=== PATIENT | male | born 1940 | race Caucasian/White ===

== ENCOUNTER → 2017-07-16 | Outpatient (CLI) | payer MEDICARE, OTHER | END | disposition home or self-care (01) | LOC: RADUSWWP 12:20 | PROVIDERS: ATTEND Family Medicine | DX: E11.40 Type 2 diabetes mellitus with diabetic neuropathy, unspecified (principal) | CPT/HCPCS: 93923 ==

== ENCOUNTER → 2019-03-19 | Day surgery (SDC) | payer MEDICARE, OTHER ==
[2019-03-17 15:12] VITALS: BMI 25.0
--- NOTE | 2019-03-18 13:44 | HP ---
HISTORY AND PHYSICAL DATE OF SURGERY: Surgery is scheduled for 03/19/2019. Harsh Flores is a 78-year-old patient seen with symptomatic left middle finger trigger finger. We discussed options with him. He elected to proceed with release A1 braulio left middle finger. Consent was obtained. PAST MEDICAL HISTORY: Asthma, COPD, diabetes non-insulin dependent, hypertension. PAST SURGICAL HISTORY: Left total hip arthroplasty. DAILY MEDICATIONS: 1. Allopurinol. 2. Amoxicillin. SOCIAL HISTORY: He denies current tobacco use. PHYSICAL EXAMINATION: Physical evaluation left hand: He has tenderness A1 braulio area. There is a nodule at the A1 braulio area. There is triggering and catching of the A1 braulio area left middle finger. His distal neurovascular exam is intact. There is a good perfusion sensation distally Left hand radiographs revealed some osteoarthritic changes. IMPRESSION: 1. Left middle finger trigger finger. 2. Hypertension. 3. Pls-puvzngn-odadcdohk diabetes. PLAN: Release A1 braulio, left middle finger. MMODL / IJN: [id number] /
[~2019-03-19] MED LIST: BUPIVACAINE (PF) 0.25% 30 ML VIAL SQ ONE; DEXAMETHASONE SOD PHOSPHATE 10 MG/ML 1 ML VIAL IV ONE; HYDROmorphone 0.5 MG/0.5 ML SYRINGE IVP PRN; KETAMINE 10 MG/ML 20 ML VIAL ONE; LACTATED RINGERS 1,000 ML IV SCH; LIDOCAINE 1% 20 ML VIAL (10MG/ML) FOR IV START INTRADERMA PRN; MIDAZOLAM 2 MG/2 ML VIAL IV PRN; ONDANSETRON 4 MG/2 ML VIAL IVP ONE; PROPOFOL 10 MG/ML 20 ML VIAL IV ONE; SCOPOLAMINE 1.5MG/72HR PATCH TRANSDERM ONE
[2019-03-19 10:23] VITALS: RESP 16; TEMP 97.6
[2019-03-19 10:47] LABS: Glucose,Whole Blood 135 mg/dL (75-99)
--- NOTE | 2019-03-19 12:09 | P.OP ---
Date of Procedure: 03/19/19 Preoperative Diagnosis: Left middle finger trigger finger Postoperative Diagnosis: Same Procedure(s) Performed: 1. Release A1 braulio left middle finger Anesthesia: MAC, local Surgeon: Guille Kwan Estimated Blood Loss (ml): 0 Pathology: none sent Condition: stable Disposition: PACU Indications for Procedure: 78-year-old patient seen with a symptomatic left middle finger trigger finger. After treatment options were discussed with him, he elected to proceed with release A1 braulio left middle finger. Operative Findings: See description of procedure Description of Procedure: The patient was taken to the operative suite. The patient see preoperative IV antibiotics. A well-padded tourniquet was placed proximal upper extremity. The left upper extremity was prepped and draped in the normal sterile orthopedic fashion. We infiltrated the proposed incision site with 6 mL quarter percent plain Marcaine. When sufficient local analgesia was noted I noted the extremity and insufflated the tourniquet to 250. I now made a transverse incision measuring approximately 1.5 cm over the area A1 braulio left middle finger. I dissected down to the A1 braulio. I released the A1 braulio. There was good excursion of the tendon with complete release of the A1 braulio. There was good hemostasis. The wound was irrigated. The skin margins were proximal nylon suture. We applied sterile dressings. The patient awakened, transferred to recovery stable condition.
[2019-03-19 12:38] VITALS: BP 133/84; PULSE 80
== END | disposition home or self-care (01) ==
LOC: OR 09:49
PROVIDERS: ATTEND Orthopaedic Surgery
DX: M65.332 Trigger finger, left middle finger (principal); J44.9 Chronic obstructive pulmonary disease, unspecified; E11.9 Type 2 diabetes mellitus without complications; I10 Essential (primary) hypertension; I25.10 Atherosclerotic heart disease of native coronary artery without angina pectoris; E78.5 Hyperlipidemia, unspecified; K21.9 Gastro-esophageal reflux disease without esophagitis; I25.2 Old myocardial infarction; Z96.642 Presence of left artificial hip joint; Z98.1 Arthrodesis status; Z79.84 Long term (current) use of oral hypoglycemic drugs; Z79.82 Long term (current) use of aspirin; Z79.51 Long term (current) use of inhaled steroids; Z79.899 Other long term (current) drug therapy
CPT/HCPCS: 26055; J0690; J2704

== ENCOUNTER → 2019-07-08 | Outpatient (CLI) | payer MEDICARE, OTHER ==
--- NOTE | 2019-07-08 13:55 | XR ---
EXAMINATION TYPE: XR shoulder complete LT DATE OF EXAM: 07/08/2019 COMPARISON: NONE HISTORY: Pain TECHNIQUE: Shoulder examined in 3 projections FINDINGS: The humeral head articulates with the glenoid. The acromio-clavicular junction has mild hypertrophy. No acute fractures or dislocations are evident. A follow up study can be performed 7-10 days from acute trauma for continued pain. IMPRESSION: 1. No acute osseous abnormality left shoulder
--- NOTE | 2019-07-08 14:03 | XR ---
EXAMINATION TYPE: XR chest 2V DATE OF EXAM: 07/08/2019 COMPARISON: 05/29/2015 INDICATION: Short of breath TECHNIQUE: Frontal and lateral views of the chest are obtained. FINDINGS: The heart size is normal. The pulmonary vasculature is normal. There is a stable 1.0 cm nodule at the right lung base. Large bulla appear to be present at the right lung base.. There is hyperinflation flattening the diaphragms compatible COPD. IMPRESSION: 1. COPD. 2. No acute pulmonary process. 3. Stable 1 cm nodule right lung base
== END | disposition home or self-care (01) ==
LOC: RADXRMAIN 13:08
PROVIDERS: ATTEND Family Medicine
DX: J44.9 Chronic obstructive pulmonary disease, unspecified (principal); R91.1 Solitary pulmonary nodule; M25.512 Pain in left shoulder
CPT/HCPCS: 71046

== ENCOUNTER → 2019-12-22 | Outpatient (CLI) | payer MEDICARE ==
--- NOTE | 2019-12-23 10:10 | CT ---
EXAMINATION TYPE: CT angio chest DATE OF EXAM: 12/22/2019 7:23 PM COMPARISON: [facility] CTA chest 06/17/2019. [facility] CT chest 07/15/2018. CT chest 5. HISTORY: Thoracic aortic aneurysm w/out rupture. Pt c/o no issues, denies stents CT DLP: 903.10 mGycm Automated exposure control for dose reduction was used. CONTRAST: CTA scan of the thorax is performed with IV Contrast, patient injected with 100 mL of Isovue 370, tho racic aortic aneurysm protocol. 3D reconstructed images are created on an independent workstation an d reviewed. MIP images are created and reviewed. FINDINGS: LUNGS: Severe centrilobular emphysematous changes. Bibasilar coarsened interstitial lung markings and multiple subpleural areas of nodular opacities of the bilateral lower lobes, right greater than left . Right middle lobe large calcification unchanged. There is no pleural effusion or pneumothorax seen. The tracheobronchial tree is patent. MEDIASTINUM: No evidence of intramural hematoma seen on precontrast imaging. There is ascending thora cic aortic ectasia measuring up to 4.0 cm. There is classic three-vessel branching of the thoracic ao rta. There are marked calcified and noncalcified atherosclerotic changes of the thoracic aorta and vi sualized upper abdominal aorta. Anterior somewhat bilobed outpouching of the proximal descending thor acic aorta in region of focus of mural aortic noncalcified plaque (7:33, 13:29). The left lateral asp ect of the mid descending thoracic aorta demonstrates a small 6 x 8 x 14 mm outpouching along a focus of mural aortic noncalcified plaque (7:43, 12:23). No thoracic aortic narrowing greater than 50%. Ca rdiac size is normal. Calcified coronary artery disease. No pericardial effusion. No lymphadenopathy. Three-dimensional images are consistent with the above findings. OTHER: No adrenal nodule. Incompletely visualized right inferior hepatic cyst. Nonobstructive nephro lithiasis bilaterally and too small to characterize right renal hypodensity. Calcified splenic granul omas. Degenerative changes of the spine and decreased osseous mineralization. IMPRESSION: 1. Ascending thoracic aortic ectasia measuring up to 4.0 cm. Marked atherosclerotic disease. 2. Outpouchings in regions of mural noncalcified plaque of the descending aorta are seen. The more p roximal descending aorta outpouching likely represents nonpenetrating atheromatous ulcer more likely than penetrating ulcer. The outpouching of the mid descending aorta may represent penetrating atheros clerotic ulcer. 3. Severe emphysematous change with redemonstrated areas of interstitial coarsening and fibrosis. No dular opacities of the lung bases are likely related to fibrosis. Continued surveillance is recommend ed for stability.
== END | disposition home or self-care (01) ==
LOC: RADCTMAIN 17:26
PROVIDERS: ATTEND Thoracic Surgery (Cardiothoracic Vascular Surgery)
DX: I77.810 Thoracic aortic ectasia (principal); I70.0 Atherosclerosis of aorta; J84.10 Pulmonary fibrosis, unspecified; J43.9 Emphysema, unspecified; R91.8 Other nonspecific abnormal finding of lung field
CPT/HCPCS: 82565; 84520; 71275; 36415; Q9967

== ENCOUNTER → 2020-12-20 | Outpatient (CLI) | payer MEDICARE ==
--- NOTE | 2020-12-21 06:38 | CT ---
EXAMINATION TYPE: CT angio chest DATE OF EXAM: 12/20/2020 7:48 PM COMPARISON: CT chest December 22, 2019 and older studies. HISTORY: f/u aneurysm CT DLP: 456.4 mGycm Automated exposure control for dose reduction was used. CONTRAST: CTA scan of the thorax is performed with IV Contrast, patient injected with 80cc mL of Isovue 370, an eurysm protocol. 3D reconstructed images are created on an independent workstation and reviewed.. FINDINGS: LUNGS: Moderate underlying emphysematous changes are redemonstrated. More prominent areas of slightly nodular and linear consolidation in the right greater than left lung bases including more focal or s uspicious 2.0 x 1.3 cm nodule or nodular consolidation posterior right lower lobe axial image 54. Fol low-up advised. Smaller scarlike opacities superior to this axial image 46 noted. There is more promi nent central right lower lobe. Bronchial wall thickening with slightly more prominent low density nod ular component axial image 47 measuring 2.2 x 1.6 cm. Stable right middle lobe basilar calcified nodu le or granuloma axial image 57. MEDIASTINUM: There is satisfactory enhancement of the central pulmonary arteries. Ascending aorta jazmine sures up to 4.1 cm in diameter axial image 39. Normal three-vessel origin from the aorta. Moderate to severe mixed plaque begins in the descending thoracic aorta. There are prominent but calcified subca rinal lymph nodes. No cardiomegaly or significant pericardial effusion is seen. Coronary artery dragan cification is redemonstrated OTHER: Nonobstructing small bilateral renal calculi noted. Punctate splenic calcifications consisten t with product of old granulomatous disease redemonstrated. Scoliotic curvature with multilevel bridg ing osteophytes. IMPRESSION: 1. Accounting for technical differences fairly stable 4.1 cm ascending aortic aneurysm. 2. Moderate to advanced emphysematous change with increasing linear and nodular right greater than le ft basilar opacities. New nodularity noted in the right lower lobe as detailed above. Advise PET CT f ollow-up to exclude neoplasm.
== END | disposition home or self-care (01) ==
LOC: RADCTMAIN 15:58
PROVIDERS: ATTEND Thoracic Surgery (Cardiothoracic Vascular Surgery)
DX: I71.2 Thoracic aortic aneurysm, without rupture (principal); J43.9 Emphysema, unspecified
CPT/HCPCS: 82565; 84520; 71275; 36415; Q9967

== ENCOUNTER → 2021-09-06 | Outpatient (CLI) | payer MEDICARE ==
--- NOTE | 2021-09-06 15:09 | CT ---
EXAMINATION TYPE: CT brain wo con DATE OF EXAM: 09/06/2021 COMPARISON: None HISTORY: WEAKNESS CT DLP: 1174 mGycm Automated exposure control for dose reduction was used. FINDINGS: Moderate degenerative changes with low attenuation in the white matter which is nonspecific but most typical of remote white matter ischemia. Craniocervical junction maintained. Sella turcica has a norm al appearance. Calvarium intact. Nasal septal deviation noted. Minimal changes of chronic sinusitis. Mastoid air laina ls clear. Orbits are symmetric. IMPRESSION: DEGENERATIVE AND NONSPECIFIC WHITE MATTER CHANGES MOST TYPICAL REMOTE ISCHEMIA. VENTRICULAR DILATION IS SLIGHTLY GREATER CENTRALLY WHICH CAN OCCASIONALLY BE ASSOCIATED WITH A COMPONENT OF NORMAL PRESSUR E HYDROCEPHALUS. CONSIDER FOLLOW-UP MRI.
== END | disposition home or self-care (01) ==
LOC: RADCTMAIN 14:41
PROVIDERS: ATTEND Family Medicine
DX: G91.2 (Idiopathic) normal pressure hydrocephalus (principal); G31.9 Degenerative disease of nervous system, unspecified
CPT/HCPCS: 70450

== ENCOUNTER → 2021-11-12 | Outpatient (CLI) | payer MEDICARE ==
--- NOTE | 2021-11-13 02:54 | MR ---
EXAMINATION TYPE: MR brain/cspine wo DATE OF EXAM: 11/12/2021 COMPARISON: None HISTORY: Rt side weakness, myelopathy, abnormal CT. Multiplanar multiecho imaging of the brain and cervical spine with no contrast. There is some diffuse cerebral cortical atrophy. There is no mass effect nor midline shift. No sign o f intracranial hemorrhage. There is slight increased signal in the central keely measuring 8 mm on the T2 and FLAIR images. There is some mild linear increased signal in the periventricular white matter. Cerebellum is intact. Diffusion images show no evidence of an acute infarct. IMPRESSION: Mild cerebral atrophy. White matter signal changes around the lateral ventricles and also in the cent ral keely that could be microvascular ischemia. No evidence of cortical infarct. Pontine lesion could be demyelinating disease. Cervical spine. The vertebrae show some straightening. There is disc space narrowing throughout the cervical spine. T here is posterior spurring and disc bulging at C5-6. There is developmentally adequate spinal canal a nd no significant spinal stenosis. Canal measures 7.5 mm at C2-3 which is the narrowest point. Canal measures 8.5 mm at C5-6. The cervical cord shows small area of increased signal in the right side of the cord at the C5-6 level. No cervical spine compression fracture. No evidence of focal bone destruc tion. 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 No evidence of any significant spinal stenosis. Cervical cord increased signal on the right side at C5-6 level could relate to demyelinating disease .
== END | disposition home or self-care (01) ==
LOC: RADMRIMAIN 15:27
PROVIDERS: ATTEND Psychiatry & Neurology Neurology
DX: G99.2 Myelopathy in diseases classified elsewhere (principal); M47.812 Spondylosis without myelopathy or radiculopathy, cervical region; M50.322 Other cervical disc degeneration at C5-C6 level; G31.9 Degenerative disease of nervous system, unspecified
CPT/HCPCS: 70551; 72141

== ENCOUNTER → 2021-12-19 | Outpatient (CLI) | payer MEDICARE ==
--- NOTE | 2021-12-19 15:22 | CT ---
EXAMINATION TYPE: CT angio chest CT DLP: 684.50 mGycm, Automated exposure control for dose reduction was used. DATE OF EXAM: 12/19/2021 2:20 PM COMPARISON: CTA chest 12/20/2020. CLINICAL INDICATION:Male, 81 years old with history of I71.2 THORACIC AORTIC ANEURYSM; Thoracic aorti c aneurysm w/o rupture TECHNIQUE/CONTRAST: CTA scan of the thorax is performed with IV Contrast, patient injected with 80 mL of Isovue 370. Maximo nal and sagittal reformats reviewed. MIP and 3-D images are created and reviewed. FINDINGS: Lungs/Pleura: Moderate centrilobular emphysematous changes redemonstrated. Right lung base reticular opacities. There is associated bronchiectasis. Previously seen right lower lobe nodular consolidation is not appreciated today. Right lung base calcified granulomas. No new or enlarging pulmonary nodule . Airway: Large airways are patent. Heart: Heart is within normal limits for size. No pericardial effusion. Coronary artery calcification s. Vasculature: Stable ascending thoracic aorta aneurysm measuring up to 4.0 cm in diameter (series 6, i mage [id number]). Normal three-vessel origin from the aorta. Moderate to severe mixed plaque begins in the de scending thoracic aorta. Atherosclerotic calcification of the aorta and its branches. There is no katarina dence of aortic dissection or acute aortic injury. Descending thoracic aorta measures up to 3.5 cm in diameter. Mediastinum: Prominent but not enlarged calcified subcarinal lymph nodes. Musculoskeletal: No acute osseous abnormalities Soft Tissues: Unremarkable. Lower neck: No significant findings. Upper Abdomen: Nonobstructing left renal calculi. Punctate splenic calcifications redemonstrated. IMPRESSION: 1. Stable 4.0 cm ascending aortic aneurysm with moderate to severe mixed plaque. 2. Moderate to advanced emphysematous changes with right lung base reticular opacities and bronchiect asis. Previously seen right lower lobe nodular consolidation is not appreciated today. 3. Sequelae of granulomatous disease.
== END | disposition home or self-care (01) ==
LOC: RADCTMAIN 12:30
PROVIDERS: ATTEND Family Medicine
DX: I71.2 Thoracic aortic aneurysm, without rupture (principal); J47.9 Bronchiectasis, uncomplicated; J43.2 Centrilobular emphysema; R91.8 Other nonspecific abnormal finding of lung field
CPT/HCPCS: 82565; 84520; 71275; 36415; Q9967

== ENCOUNTER 2022-01-29 23:06 | Inpatient (IN) | payer MEDICARE ==
--- NOTE | 2022-01-29 23:50 | XR ---
EXAMINATION TYPE: XR chest 1V portable DATE OF EXAM: 01/29/2022 COMPARISON: 07/08/2019 HISTORY: Cough TECHNIQUE: Single view FINDINGS: There is blunting right costophrenic angle and infiltrate right lung base. No heart failure . Heart size is fairly normal. There are chest leads. No pneumothorax. IMPRESSION: There is some right pleural effusion and right lower lobe pneumonia which appears new com pared to old exam. No heart failure
--- NOTE | 2022-01-29 23:53 | ED ---
SOB HPI - General Chief Complaint: Shortness of Breath Stated Complaint: PETER Time Seen by Provider: 01/29/22 23:10 Source: EMS Mode of arrival: EMS Limitations: no limitations - History of Present Illness Initial Comments: 81-year-old male presents to the emergency department for shortness of breath. He does have a history of COPD and does wear 2.5 liters of oxygen at home at night when he sleeps. It is reported that the patient has been wearing oxygen during the day. also turned his oxygen up to 4 L. He has had a deep, nonproductive cough. He used his nebulizer without any improvement. When EMS arrived to the house they found him saturating in the 80s. He was tripoding. They placed him on CPAP. He admits to a right-sided flank pain. No nausea or vomiting. No sick contacts with similar symptoms. He denies ripping or tearing sensation to his back. 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 Merrill. He follows with Dr. Jiang from pulmonology. He is not currently on any antibiotics or steroids. EMS did provide him with a breathing treatment in route to the hospital. They also gave him 125 of Solu-Medrol. No abdominal pain. No lower extremity swelling. He does not take any blood thinners. No other alleviating, precipitating or modifying factors - Related Data Home Medications Medication Instructions Recorded Confirmed Albuterol Inhaler [Ventolin Hfa 1 puff INHALATION RT-Q6H PRN 01/28/14 01/30/22 Inhaler] Fluticasone Propionate [Flonase] 1 spr EA NOSTRIL BID 01/28/14 01/30/22 metFORMIN HCL [Glucophage] 500 mg PO BID 01/28/14 01/30/22 Albuterol Nebulized [Ventolin 3 ml INHALATION RT-QID PRN 05/29/14 01/30/22 Nebulized] Losartan Potassium 100 mg PO DAILY 02/22/16 01/30/22 Alogliptin Benzoate [Alogliptin] 12.5 mg PO DAILY 03/17/19 01/30/22 Tiotropium [place] [Spiriva 2 puff INHALATION RT-DAILY 03/17/19 01/30/22 Respimat] Atorvastatin Calcium [Lipitor] 40 mg PO HS 01/30/22 01/30/22 Carboxymethylcellulose Sodium 1 drop BOTH EYES DAILY PRN 01/30/22 01/30/22 Cholecalciferol [Vitamin D3 (25 25 mcg PO DAILY 01/30/22 01/30/22 Mcg = 1000 Iu)] Fluticasone Propion/Salmeterol 1 puff INHALATION RT-BID 01/30/22 01/30/22 [Advair 500-50 Diskus] Lidocaine 5% Patch [Lidoderm 5% 1 patch TRANSDERM DAILY 01/30/22 01/30/22 Patch] Magnesium Oxide 420mg 420 mg PO BID 01/30/22 01/30/22 Metoprolol Tartrate [Lopressor] 75 mg PO BID 01/30/22 01/30/22 allopurinoL [Zyloprim] 100 mg PO DAILY 01/30/22 01/30/22 hydroCHLOROthiazide [Hydrodiuril] 25 mg PO Q48H 01/30/22 01/30/22 Allergies Allergy/AdvReac Type Severity Reaction Status Date / Time enalaprilat [From Vasotec] Allergy Per [facility] Verified 01/30/22 09:09 records tramadol AdvReac Hallucinati Verified 01/30/22 09:09 ons Review of Systems ROS Statement: Those systems with pertinent positive or pertinent negative responses have been documented in the HPI. ROS Other: All systems not noted in ROS Statement are negative. Past Medical History Past Medical History: Chest Pain / Angina, COPD, Diabetes Mellitus, Hyperlipidemia, Hypertension, Myocardial Infarction ([place]), Pneumonia, Renal Disease, Skin Disorder Additional Past Medical History / Comment(s): Stage 2 kidney failure, gout Last Myocardial Infarction Date:: 1990 History of Any Multi-Drug Resistant Organisms: None Reported Past Surgical History: Heart Catheterization, Joint Replacement Additional Past Surgical History / Comment(s): AAA repair, rt leg aneursym with 2 stents, sarah cataracts, neck surgery, lt hip replacement Past Anesthesia/Blood Transfusion Reactions: Previous Problems w/ Anesthesia, Motion Sickness Additional Past Anesthesia/Blood Transfusion Reaction / Comment(s): previous difficulty with general anesthesia due to COPD and difficulty breathing Past Psychological History: No Psychological Hx Reported Past Alcohol Use History: None Reported Past Drug Use History: None Reported - Past Family History Father Additional Family Medical History / Comment(s): AT AGE 63 MASSIVE [place] Mother Family Medical History: No Reported History Additional Family Medical History / Comment(s): AGE 42 UNCONTROLLED HIGH BLOOD PRESSURE/ MIGRAINES General Exam Limitations: no limitations General appearance: alert, in distress Head exam: Present: atraumatic, normocephalic, normal inspection Eye exam: Present: normal appearance, PERRL, EOMI. Absent: scleral icterus, conjunctival injection, periorbital swelling ENT exam: Present: normal exam, mucous membranes moist Neck exam: Present: normal inspection. Absent: tenderness, meningismus, lymphadenopathy Respiratory exam: Present: respiratory distress, wheezes, chest wall tenderness, accessory muscle use (right lateral chest wall), decreased breath sounds. Absent: rales, rhonchi, stridor Cardiovascular Exam: Present: normal rhythm, tachycardia, normal heart sounds. Absent: systolic murmur, diastolic murmur, rubs, gallop, clicks GI/Abdominal exam: Present: soft, normal bowel sounds. Absent: distended, tenderness, guarding, rebound, rigid Extremities exam: Present: normal inspection, full ROM, normal capillary refill. Absent: tenderness, pedal edema, joint swelling, calf tenderness Back exam: Present: normal inspection Neurological exam: Present: alert, oriented X3, CN II-XII intact Psychiatric exam: Present: normal affect, normal mood Skin exam: Present: warm, intact, normal color, diaphoretic. Absent: rash Course Vital Signs 01/29/22 01/29/22 01/29/22 23:07 23:15 23:20 Temperature 99.8 F H Pulse Rate 122 H 133 H Respiratory 42 H Rate Blood Pressure 163/107 143/109 O2 Sat by Pulse 94 L Oximetry Fraction of 100 Inspired Oxygen (FIO2) 01/29/22 01/29/22 01/30/22 23:24 23:39 00:20 Temperature Pulse Rate 135 H 141 H Respiratory 45 H 44 H Rate Blood Pressure 164/115 142/92 O2 Sat by Pulse 97 96 Oximetry Fraction of 100 Inspired Oxygen (FIO2) 01/30/22 01/30/22 01/30/22 01:00 01:40 03:30 Temperature Pulse Rate 112 H 106 H Respiratory 30 H 30 H Rate Blood Pressure 98/56 97/61 O2 Sat by Pulse 94 L 93 L Oximetry Fraction of 70 Inspired Oxygen (FIO2) 01/30/22 01/30/22 01/30/22 04:30 06:00 07:00 Temperature Pulse Rate 100 102 H 100 Respiratory 26 H 22 26 H Rate Blood Pressure 97/56 100/87 99/74 O2 Sat by Pulse 84 L 93 L 90 L Oximetry Fraction of Inspired Oxygen (FIO2) 01/30/22 01/30/22 01/30/22 07:39 07:44 08:08 Temperature Pulse Rate 102 H 104 H 102 H Respiratory 22 Rate Blood Pressure 99/68 O2 Sat by Pulse 94 L Oximetry Fraction of Inspired Oxygen (FIO2) 01/30/22 01/30/22 01/30/22 08:47 11:47 11:58 Temperature 97.6 F Pulse Rate 105 H 105 H 102 H Respiratory 18 Rate Blood Pressure 100/73 O2 Sat by Pulse 94 L Oximetry Fraction of Inspired Oxygen (FIO2) 01/30/22 12:47 Temperature Pulse Rate 110 H Respiratory 20 Rate Blood Pressure 109/67 O2 Sat by Pulse 95 Oximetry Fraction of Inspired Oxygen (FIO2) Medical Decision Making - Medical Decision Making Upon arrival patient was promptly placed into trauma 1. He is placed on BiPAP. IV access is established and laboratory studies are conducted. He has already been given a DuoNeb breathing treatment and Solu-Medrol. Laboratory studies are reviewed and demonstrates acute kidney injury with a creatinine of 2.3. Lactic acid is 5.3. BNP 598. Influenza B is positive. Chest x-ray demonstrates a right lower lobe pneumonia. He was given a dose of Rocephin and azithromycin. Started on 130 mL per hour due to his AKA I. He is also started on Tamiflu for his influenza B. ABG is obtained which demonstrates a pH of 7.3, CO2 of 38, O2 of 111. Bicarb of 19. Because of these gas results the patient is trialed off BiPAP and put on 6 L. Recommended admission. Spoke with Dr. Caro who is agreeable to admit the patient Patient was trialed off of BiPAP however after approximately 1.5 hours patient became hypoxic again. He was placed on high flow nasal cannula however did become slowly worse and therefore ended up on BiPAP once again - Lab Data Result diagrams: 01/29/22 23:21 01/30/22 06:38 Lab Results 01/29/22 01/29/22 01/29/22 Range/Units 23:21 23:39 23:39 WBC 11.3 H (3.8-10.6) k/uL RBC 4.26 L (4.30-5.90) m/uL Hgb 13.1 (13.0-17.5) gm/dL Hct 41.8 (39.0-53.0) % MCV 98.1 (80.0-100.0) fL MCH 30.7 (25.0-35.0) pg MCHC 31.3 (31.0-37.0) g/dL RDW 14.3 (11.5-15.5) % Plt Count 389 (150-450) k/uL MPV 9.2 Neutrophils % (Manual) 69 % Band Neuts % (Manual) 11 % Lymphocytes % (Manual) 12 % Monocytes % (Manual) 5 % Eosinophils % (Manual) 2 % Metamyelocytes % 2 % Myelocytes % 1 % Neutrophils # (Manual) 9.00 H (1.3-7.7) k/uL Lymphocytes # (Manual) 1.36 (1.0-4.8) k/uL Monocytes # (Manual) 0.57 (0-1.0) k/uL Eosinophils # (Manual) 0.23 (0-0.7) k/uL Metamyelocytes # (Man) 0.23 H (0) k/uL Myelocytes # (Manual) 0.11 H (0) k/uL Nucleated RBCs 0 (0-0) /100 WBC Manual Slide Review Performed PT 10.3 (9.0-12.0) sec INR 0.9 (<1.2) APTT 23.4 (22.0-30.0) sec Sample Site ABG pH (7.35-7.45) ABG pCO2 (35-45) mmHg ABG pO2 (83-108) mmHg ABG HCO3 (21-25) mmol/L ABG Total CO2 (19-24) mmol/L ABG O2 Saturation (94-97) % ABG Base Excess mmol/L Farrukh Test FiO2 % Sodium (137-145) mmol/L Potassium (3.5-5.1) mmol/L Chloride (98-107) mmol/L Carbon Dioxide (22-30) mmol/L Anion Gap mmol/L BUN (9-20) mg/dL Creatinine (0.66-1.25) mg/dL Est GFR (CKD-EPI)AfAm (>60 ml/min/1.73 sqM) Est GFR (CKD-EPI)NonAf (>60 ml/min/1.73 sqM) Glucose (74-99) mg/dL Lactic Ac Sepsis Rflx Plasma Lactic Acid Moses 5.3 H* (0.7-2.0) mmol/L Calcium (8.4-10.2) mg/dL Magnesium (1.6-2.3) mg/dL Total Bilirubin (0.2-1.3) mg/dL AST (17-59) U/L ALT (4-49) U/L Alkaline Phosphatase (38-126) U/L Troponin I (0.000-0.034) ng/mL NT-Pro-B Natriuret Pep pg/mL Total Protein (6.3-8.2) g/dL Albumin (3.5-5.0) g/dL Coronavirus (PCR) (Not Detectd) Influenza Type A RNA (Not Detectd) Influenza Type B (PCR) (Not Detectd) 01/29/22 01/29/22 01/30/22 Range/Units 23:39 23:39 00:14 WBC (3.8-10.6) k/uL RBC (4.30-5.90) m/uL Hgb (13.0-17.5) gm/dL Hct (39.0-53.0) % MCV (80.0-100.0) fL MCH (25.0-35.0) pg MCHC (31.0-37.0) g/dL RDW (11.5-15.5) % Plt Count (150-450) k/uL MPV Neutrophils % (Manual) % Band Neuts % (Manual) % Lymphocytes % (Manual) % Monocytes % (Manual) % Eosinophils % (Manual) % Metamyelocytes % % Myelocytes % % Neutrophils # (Manual) (1.3-7.7) k/uL Lymphocytes # (Manual) (1.0-4.8) k/uL Monocytes # (Manual) (0-1.0) k/uL Eosinophils # (Manual) (0-0.7) k/uL Metamyelocytes # (Man) (0) k/uL Myelocytes # (Manual) (0) k/uL Nucleated RBCs (0-0) /100 WBC Manual Slide Review PT (9.0-12.0) sec INR (<1.2) APTT (22.0-30.0) sec Sample Site ABG pH (7.35-7.45) ABG pCO2 (35-45) mmHg ABG pO2 (83-108) mmHg ABG HCO3 (21-25) mmol/L ABG Total CO2 (19-24) mmol/L ABG O2 Saturation (94-97) % ABG Base Excess mmol/L Farrukh Test FiO2 % Sodium (137-145) mmol/L Potassium (3.5-5.1) mmol/L Chloride (98-107) mmol/L Carbon Dioxide (22-30) mmol/L Anion Gap mmol/L BUN (9-20) mg/dL Creatinine (0.66-1.25) mg/dL Est GFR (CKD-EPI)AfAm (>60 ml/min/1.73 sqM) Est GFR (CKD-EPI)NonAf (>60 ml/min/1.73 sqM) Glucose (74-99) mg/dL Lactic Ac Sepsis Rflx Plasma Lactic Acid Moses (0.7-2.0) mmol/L Calcium (8.4-10.2) mg/dL Magnesium (1.6-2.3) mg/dL Total Bilirubin (0.2-1.3) mg/dL AST (17-59) U/L ALT (4-49) U/L Alkaline Phosphatase (38-126) U/L Troponin I 0.020 (0.000-0.034) ng/mL NT-Pro-B Natriuret Pep 598 pg/mL Total Protein (6.3-8.2) g/dL Albumin (3.5-5.0) g/dL Coronavirus (PCR) (Not Detectd) Influenza Type A RNA Not Detected (Not Detectd) Influenza Type B (PCR) Detected H (Not Detectd) 01/30/22 01/30/22 01/30/22 Range/Units 00:14 00:46 01:06 WBC (3.8-10.6) k/uL RBC (4.30-5.90) m/uL Hgb (13.0-17.5) gm/dL Hct (39.0-53.0) % MCV (80.0-100.0) fL MCH (25.0-35.0) pg MCHC (31.0-37.0) g/dL RDW (11.5-15.5) % Plt Count (150-450) k/uL MPV Neutrophils % (Manual) % Band Neuts % (Manual) % Lymphocytes % (Manual) % Monocytes % (Manual) % Eosinophils % (Manual) % Metamyelocytes % % Myelocytes % % Neutrophils # (Manual) (1.3-7.7) k/uL Lymphocytes # (Manual) (1.0-4.8) k/uL Monocytes # (Manual) (0-1.0) k/uL Eosinophils # (Manual) (0-0.7) k/uL Metamyelocytes # (Man) (0) k/uL Myelocytes # (Manual) (0) k/uL Nucleated RBCs (0-0) /100 WBC Manual Slide Review PT (9.0-12.0) sec INR (<1.2) APTT (22.0-30.0) sec Sample Site ABG pH (7.35-7.45) ABG pCO2 (35-45) mmHg ABG pO2 (83-108) mmHg ABG HCO3 (21-25) mmol/L ABG Total CO2 (19-24) mmol/L ABG O2 Saturation (94-97) % ABG Base Excess mmol/L Farrukh Test FiO2 % Sodium 135 L (137-145) mmol/L Potassium 4.9 (3.5-5.1) mmol/L Chloride 93 L (98-107) mmol/L Carbon Dioxide 18 L (22-30) mmol/L Anion Gap 24 mmol/L BUN 67 H (9-20) mg/dL Creatinine 2.39 H (0.66-1.25) mg/dL Est GFR (CKD-EPI)AfAm 29 (>60 ml/min/1.73 sqM) Est GFR (CKD-EPI)NonAf 25 (>60 ml/min/1.73 sqM) Glucose 281 H (74-99) mg/dL Lactic Ac Sepsis Rflx Y Plasma Lactic Acid Moses (0.7-2.0) mmol/L Calcium 9.7 (8.4-10.2) mg/dL Magnesium 2.0 (1.6-2.3) mg/dL Total Bilirubin 0.6 (0.2-1.3) mg/dL AST 38 (17-59) U/L ALT 25 (4-49) U/L Alkaline Phosphatase 116 (38-126) U/L Troponin I (0.000-0.034) ng/mL NT-Pro-B Natriuret Pep pg/mL Total Protein 7.1 (6.3-8.2) g/dL Albumin 3.6 (3.5-5.0) g/dL Coronavirus (PCR) Not Detected (Not Detectd) Influenza Type A RNA (Not Detectd) Influenza Type B (PCR) (Not Detectd) 01/30/22 Range/Units 01:41 WBC (3.8-10.6) k/uL RBC (4.30-5.90) m/uL Hgb (13.0-17.5) gm/dL Hct (39.0-53.0) % MCV (80.0-100.0) fL MCH (25.0-35.0) pg MCHC (31.0-37.0) g/dL RDW (11.5-15.5) % Plt Count (150-450) k/uL MPV Neutrophils % (Manual) % Band Neuts % (Manual) % Lymphocytes % (Manual) % Monocytes % (Manual) % Eosinophils % (Manual) % Metamyelocytes % % Myelocytes % % Neutrophils # (Manual) (1.3-7.7) k/uL Lymphocytes # (Manual) (1.0-4.8) k/uL Monocytes # (Manual) (0-1.0) k/uL Eosinophils # (Manual) (0-0.7) k/uL Metamyelocytes # (Man) (0) k/uL Myelocytes # (Manual) (0) k/uL Nucleated RBCs (0-0) /100 WBC Manual Slide Review PT (9.0-12.0) sec INR (<1.2) APTT (22.0-30.0) sec Sample Site rbrac ABG pH 7.32 L (7.35-7.45) ABG pCO2 38 (35-45) mmHg ABG pO2 111 H (83-108) mmHg ABG HCO3 20 L (21-25) mmol/L ABG Total CO2 21 (19-24) mmol/L ABG O2 Saturation 98.0 H (94-97) % ABG Base Excess -6.7 mmol/L Farrukh Test yes FiO2 70 % Sodium (137-145) mmol/L Potassium (3.5-5.1) mmol/L Chloride (98-107) mmol/L Carbon Dioxide (22-30) mmol/L Anion Gap mmol/L BUN (9-20) mg/dL Creatinine (0.66-1.25) mg/dL Est GFR (CKD-EPI)AfAm (>60 ml/min/1.73 sqM) Est GFR (CKD-EPI)NonAf (>60 ml/min/1.73 sqM) Glucose (74-99) mg/dL Lactic Ac Sepsis Rflx Plasma Lactic Acid Moses (0.7-2.0) mmol/L Calcium (8.4-10.2) mg/dL Magnesium (1.6-2.3) mg/dL Total Bilirubin (0.2-1.3) mg/dL AST (17-59) U/L ALT (4-49) U/L Alkaline Phosphatase (38-126) U/L Troponin I (0.000-0.034) ng/mL NT-Pro-B Natriuret Pep pg/mL Total Protein (6.3-8.2) g/dL Albumin (3.5-5.0) g/dL Coronavirus (PCR) (Not Detectd) Influenza Type A RNA (Not Detectd) Influenza Type B (PCR) (Not Detectd) - EKG Data EKG Comments: EKG did show significant baseline artifact. Sinus tachycardia with a rate of 122. [place] interval 133. QRS 15. QTC 379. No gross ST segment elevations or depressions Critical Care Time Critical Care Time: Yes Critical Care Time: 35 minutes Disposition Clinical Impression: CAP (community acquired pneumonia), Influenza B, Lactic acidosis Disposition: ADMITTED IP TO THIS HOSP Condition: Serious Is patient prescribed a controlled substance at d/c from ED?: No Decision to Admit Reason: Admit from EC Decision Date: 01/30/22 Decision Time: 01:22
[2022-01-29] MEDS ORDERED: AZITHROMYCIN 500 MG in SODIUM CHLORIDE 0.9% 250 ML IVPB STA (23:55)
[2022-01-29] MEDS ORDERED: cefTRIAXone IN SWFI 1,000 MG/10 ML SYRINGE IVP STA (23:55)
[2022-01-30 00:24] LABS: HCT 41.8 % (39.0-53.0); HGB 13.1 gm/dL (13.0-17.5); MCH 30.7 pg (25.0-35.0); MCHC 31.3 g/dL (31.0-37.0); MCV 98.1 fL (80.0-100.0); Mean Platelet Volume 9.2; Platelet Count 389 k/uL (150-450); RBC 4.26 m/uL (4.30-5.90); RDW 14.3 % (11.5-15.5); WBC 11.3 k/uL (3.8-10.6)
[2022-01-30] MEDS ORDERED: LORazepam 2 MG/ML INJ IV STA (00:51)
[2022-01-30 01:11] LABS: INR 0.9 (<1.2); Partial Thromboplastin Time 23.4 sec (22.0-30.0); Prothrombin Time 10.3 sec (9.0-12.0)
[2022-01-30 01:20] LABS: Albumin 3.6 g/dL (3.5-5.0); Calcium 9.7 mg/dL (8.4-10.2); Potassium 4.9 mmol/L (3.5-5.1); Total Bilirubin 0.6 mg/dL (0.2-1.3); Total Protein 7.1 g/dL (6.3-8.2)
[2022-01-30] MEDS ORDERED: IBUPROFEN 600 MG TAB PO STA (01:21)
[2022-01-30 01:38] LABS: Band Neutrophils % 11 %; Eosinophils # (M) 0.23 k/uL (0-0.7); Lymphocytes # (M) 1.36 k/uL (1.0-4.8); Metamyelocytes # (M) 0.23 k/uL (0); Metamyelocytes % 2 %; Monocytes # (M) 0.57 k/uL (0-1.0); Myelocytes # (M) 0.11 k/uL (0); Myelocytes % 1 %; Neutrophils % (M) 69 %; Nucleated Red Blood Cells 0 /100 WBC (0-0); Total Cells Counted 200
[2022-01-30 01:43] LABS: ABG Base Excess -6.7 mmol/L; ABG HCO3 20 mmol/L (21-25); ABG PCO2 38 mmHg (35-45); ABG PH 7.32 (7.35-7.45); ABG PO2 111 mmHg (83-108); ABG TCO2 21 mmol/L (19-24)
[2022-01-30] MEDS ORDERED: NALOXONE 0.4 MG/ML 1 ML VIAL IV PRN (01:44)
[2022-01-30] MEDS ORDERED: OSELTAMIVIR 60 MG/10 ML ORAL SYRINGE PO ONE (02:00)
[2022-01-30 02:04] LABS: Allen Test Performed? yes
[2022-01-30] MEDS ORDERED: IPRATROPIUM-ALBUTEROL 3 ML NEB INHALATION PRN (02:11)
[2022-01-30] MEDS ORDERED: IPRATROPIUM-ALBUTEROL 3 ML NEB INHALATION SCH (04:00)
[2022-01-30] MEDS: SODIUM CHLORIDE 0.9% 1,000 ML IV SCH ×4 (06:51→20:50)
[2022-01-30] MEDS: IPRATROPIUM-ALBUTEROL 3 ML NEB INHALATION SCH ×4 (07:38→19:21)
[2022-01-30] MEDS: SYMBICORT 160-4.5 MCG INHALER INHALATION SCH ×2 (07:38→19:21)
[2022-01-30] MEDS ORDERED: IPRATROPIUM 0.5 MG/2.5 ML NEBU INHALATION SCH (08:00)
[2022-01-30 09:17] LABS: Calcium 9.2 mg/dL (8.4-10.2); Magnesium 2.1 mg/dL (1.6-2.3); Potassium 5.2 mmol/L (3.5-5.1)
--- NOTE | 2022-01-30 09:43 | P.NPCON ---
History of Present Illness - Reason for Consult acute renal failure, chronic renal failure - History of Present Illness Reason for consultation: Acute kidney injury on chronic kidney disease History of present illness: Patient is a 81-year-old male seen in renal consultation for acute kidney injury on chronic kidney disease. Patient's creatinine in December 2020 in December 2021 was in the range of 1.3-1.4. This admission was 2.39 and is up at 2.7 today. Patient presented to the hospital with worsening shortness of breath going on for about one day. He also admits to diarrhea prior to admission. He did test positive for influenza B. He is currently receiving IV fluids. He admits to upper of cough with clear and brown phlegm. He did have a temperature of 99.8F on admission. Patient states his urine output has been low. Denies hematuria. No vomiting. Oral intake has been just fair. He denies use of nonsteroidals. He was taking thiazide diuretic as well as losartan outpatient in both of which are currently held. Blood pressure has been on the lower side in the systolic 90s to low 100s. He denies history of coronary artery disease but still states he does have stents in his lower extremity. He does have history of type 2 diabetes. Vital signs - afebrile this morning. Tachycardic. On 15 L high flow cannula. General: Awake. No acute distress. On nasal cannula. HEENT: Head exam is unremarkable. LUNGS: Breath sounds decreased. HEART: Tachycardic. ABDOMEN: Soft, no distention. EXTREMITITES: No edema. Past Medical History Past Medical History: Chest Pain / Angina, COPD, Diabetes Mellitus, Hyperlipidemia, Hypertension, Myocardial Infarction ([place]), Pneumonia, Renal Disease, Skin Disorder Additional Past Medical History / Comment(s): Stage 2 kidney failure, gout Last Myocardial Infarction Date:: 1990 History of Any Multi-Drug Resistant Organisms: None Reported Past Surgical History: Heart Catheterization, Joint Replacement Additional Past Surgical History / Comment(s): AAA repair, rt leg aneursym with 2 stents, sarah cataracts, neck surgery, lt hip replacement Past Anesthesia/Blood Transfusion Reactions: Previous Problems w/ Anesthesia, Motion Sickness Additional Past Anesthesia/Blood Transfusion Reaction / Comment(s): previous difficulty with general anesthesia due to COPD and difficulty breathing Past Psychological History: No Psychological Hx Reported Past Alcohol Use History: None Reported Past Drug Use History: None Reported - Past Family History Father Additional Family Medical History / Comment(s): AT AGE 63 MASSIVE [place] Mother Family Medical History: No Reported History Additional Family Medical History / Comment(s): AGE 42 UNCONTROLLED HIGH BLOOD PRESSURE/ MIGRAINES Medications and Allergies Home Medications Medication Instructions Recorded Confirmed Type Albuterol Inhaler [Ventolin Hfa 1 puff INHALATION RT-Q6H PRN 01/28/14 01/30/22 History Inhaler] Fluticasone Propionate [Flonase] 1 spr EA NOSTRIL BID 01/28/14 01/30/22 History metFORMIN HCL [Glucophage] 500 mg PO BID 01/28/14 01/30/22 History Albuterol Nebulized [Ventolin 3 ml INHALATION RT-QID PRN 05/29/14 01/30/22 History Nebulized] Losartan Potassium 100 mg PO DAILY 02/22/16 01/30/22 History Alogliptin Benzoate [Alogliptin] 12.5 mg PO DAILY 03/17/19 01/30/22 History Tiotropium [place] [Spiriva 2 puff INHALATION RT-DAILY 03/17/19 01/30/22 History Respimat] Atorvastatin Calcium [Lipitor] 40 mg PO HS 01/30/22 01/30/22 History Carboxymethylcellulose Sodium 1 drop BOTH EYES DAILY PRN 01/30/22 01/30/22 History Cholecalciferol [Vitamin D3 (25 25 mcg PO DAILY 01/30/22 01/30/22 History Mcg = 1000 Iu)] Fluticasone Propion/Salmeterol 1 puff INHALATION RT-BID 01/30/22 01/30/22 Histo ry [Advair 500-50 Diskus] Lidocaine 5% Patch [Lidoderm 5% 1 patch TRANSDERM DAILY 01/30/22 01/30/22 History Patch] Magnesium Oxide 420mg 420 mg PO BID 01/30/22 01/30/22 History Metoprolol Tartrate [Lopressor] 75 mg PO BID 01/30/22 01/30/22 History allopurinoL [Zyloprim] 100 mg PO DAILY 01/30/22 01/30/22 History hydroCHLOROthiazide [Hydrodiuril] 25 mg PO Q48H 01/30/22 01/30/22 History Allergies Allergy/AdvReac Type Severity Reaction Status Date / Time enalaprilat [From Vasotec] Allergy Per [facility] Verified 01/30/22 09:09 records tramadol AdvReac Hallucinati Verified 01/30/22 09:09 ons Physical Exam Vitals: Vital Signs Temp Pulse Resp BP Pulse Ox FiO2 01/30/22 08:47 97.6 F 105 H 18 100/73 94 L 01/30/22 08:08 102 H 22 99/68 94 L 01/30/22 07:44 104 H 01/30/22 07:39 102 H 01/30/22 07:00 100 26 H 99/74 90 L 01/30/22 06:00 102 H 22 100/87 93 L 01/30/22 04:30 100 26 H 97/56 84 L 01/30/22 03:30 106 H 30 H 97/61 93 L 01/30/22 01:40 112 H 30 H 98/56 94 L 01/30/22 01:00 70 01/30/22 00:20 141 H 44 H 142/92 96 01/29/22 23:39 135 H 45 H 164/115 97 01/29/22 23:24 100 01/29/22 23:20 133 H 143/109 01/29/22 23:15 100 01/29/22 23:07 99.8 F H 122 H 42 H 163/107 94 L Intake and Output 01/29/22 01/30/22 01/30/22 22:59 06:59 14:59 Output Total 699 Balance -699 Output: Urine 300 Uretheral (Kenny) 300 Post Void Residual 399 Other: Weight 81.193 kg Results - Lab Results Most recent lab results ABG pH 7.32 (7.35-7.45) L 01/30/22 01:41 ABG pCO2 38 mmHg (35-45) 01/30/22 01:41 ABG pO2 111 mmHg (83-108) H 01/30/22 01:41 ABG HCO3 20 mmol/L (21-25) L 01/30/22 01:41 ABG O2 Saturation 98.0 % (94-97) H 01/30/22 01:41 Calcium 9.2 mg/dL (8.4-10.2) 01/30/22 06:38 Magnesium 2.1 mg/dL (1.6-2.3) 01/30/22 06:38 09/25/22 23:21 01/30/22 06:38 Assessment and Plan Plan: Assessment: 1. Acute kidney injury secondary to ATN secondary to infection and further worsened with the use of losartan and diuretic. Creatinine 2.7 today. Rule out obstructive uropathy and urinary retention. 2. Chronic kidney disease stage III with baseline creatinine near 1.3-1.4 secondary to nephrosclerosis and diabetic kidney disease. 3. Acute hypoxic respiratory failure. 4. Influenza B infection. 5. Diabetes mellitus. 6. Metabolic acidosis secondary to acute kidney injury and lactic acidosis. Improved. 7. Hyponatremia secondary to acute kidney injury. Plan: Decrease rate of normal saline to 75 mL an hour. Check bladder scan to make sure no urinary retention. Insert Kenny catheter if more than 300 mL urine present. Check renal ultrasound. Continue to hold all antihypertensives. Avoid nephrotoxins. Continue to monitor renal function and urine output. Thank you for the consultation. I will continue to follow the patient with you during his hospital stay.
[2022-01-30] MEDS ORDERED: ARTIFICIAL TEARS-HYPROMELLOSE DROPS 15 ML BTL BOTH EYES PRN (13:11)
[2022-01-30 13:23] LABS: Glucose,Whole Blood 364 mg/dL (70-110)
--- NOTE | 2022-01-30 15:15 | P.CNPUL ---
History of Present Illness Consult date: 01/30/22 Requesting physician: Puneet Caro Reason for consult: pneumonia Chief complaint: Shortness of breath History of present illness: This is a 81-year-old white male with history of COPD, chronic hypoxic respiratory failure, maintained on oxygen at home, patient follows up with Dr. Aaron lopez for his underlying COPD. Patient was seen in the ER this morning with almost 2 weeks history of nonproductive cough, shortness of breath, wheezing, patient was in significant respiratory distress upon arrival to the ER, he was also complaining of right-sided flank pain. Patient denied any sick contacts. Denied any chest pain. Chest x-ray question a right lower lobe pneumonia is viral screening came back positive for influenza B. COVID-19 PCR was negative. Patient was noted to have a bit of leukocytosis with WBC count of 11.3 hemoglobin 13.1. ABG on 70% FiO2 showed a pO2 of 111 pCO2 38 pH of 7.3 to apparently this was done on BiPAP at 70% patient was also noted to have acute kidney injury with a BUN of 71 creatinine 2.70 and his blood sugar was 364 patient was admitted and this consult was initiated. Patient is now receiving Rocephin and Zithromax is also receiving bronchodilators in the form of DuoNeb and Symbicort. He is also on Tamiflu, and his IV fluid is at 75 mL per hour pat ient was seen by nephrology in consultation for his acute kidney injury renal ultrasound is pending. Review of Systems Constitutional: Low-grade fever, no weight loss. HEENT: Negative Pulmonary: As noted in HPI Cardiac: Negative GI: Occasional diarrhea no nausea no vomiting Genitourinary: Negative Musculoskeletal: Negative Neurologic: Negative Skin: Negative Endocrine: Negative Hematologic: Negative Psychiatric: Negative Past Medical History Past Medical History: Chest Pain / Angina, COPD, Diabetes Mellitus, Hyperlipidemia, Hypertension, Myocardial Infarction ([place]), Pneumonia, Renal Disease, Skin Disorder Additional Past Medical History / Comment(s): Stage 2 kidney failure, gout Last Myocardial Infarction Date:: 1990 History of Any Multi-Drug Resistant Organisms: None Reported Past Surgical History: Heart Catheterization, Joint Replacement Additional Past Surgical History / Comment(s): AAA repair, rt leg aneursym with 2 stents, sarah cataracts, neck surgery, lt hip replacement Past Anesthesia/Blood Transfusion Reactions: Previous Problems w/ Anesthesia, Motion Sickness Additional Past Anesthesia/Blood Transfusion Reaction / Comment(s): previous difficulty with general anesthesia due to COPD and difficulty breathing Past Psychological History: No Psychological Hx Reported Past Alcohol Use History: None Reported Past Drug Use History: None Reported - Past Family History Father Additional Family Medical History / Comment(s): AT AGE 63 MASSIVE [place] Mother Family Medical History: No Reported History Additional Family Medical History / Comment(s): AGE 42 UNCONTROLLED HIGH BLOOD PRESSURE/ MIGRAINES Medications and Allergies Home Medications Medication Instructions Recorded Confirmed Type Albuterol Inhaler [Ventolin Hfa 1 puff INHALATION RT-Q6H PRN 01/28/14 01/30/22 History Inhaler] Fluticasone Propionate [Flonase] 1 spr EA NOSTRIL BID 01/28/14 01/30/22 History metFORMIN HCL [Glucophage] 500 mg PO BID 01/28/14 01/30/22 History Albuterol Nebulized [Ventolin 3 ml INHALATION RT-QID PRN 05/29/14 01/30/22 History Nebulized] Losartan Potassium 100 mg PO DAILY 02/22/16 01/30/22 History Alogliptin Benzoate [Alogliptin] 12.5 mg PO DAILY 03/17/19 01/30/22 History Tiotropium [place] [Spiriva 2 puff INHALATION RT-DAILY 03/17/19 01/30/22 History Respimat] Atorvastatin Calcium [Lipitor] 40 mg PO HS 01/30/22 01/30/22 History Carboxymethylcellulose Sodium 1 drop BOTH EYES DAILY PRN 01/30/22 01/30/22 History Cholecalciferol [Vitamin D3 (25 25 mcg PO DAILY 01/30/22 01/30/22 History Mcg = 1000 Iu)] Fluticasone Propion/Salmeterol 1 puff INHALATION RT-BID 01/30/22 01/30/22 History [Advair 500-50 Diskus] Lidocaine 5% Patch [Lidoderm 5% 1 patch TRANSDERM DAILY 01/30/22 01/30/22 History Patch] Magnesium Oxide 420mg 420 mg PO BID 01/30/22 01/30/22 History Metoprolol Tartrate [Lopressor] 75 mg PO BID 01/30/22 01/30/22 History allopurinoL [Zyloprim] 100 mg PO DAILY 01/30/22 01/30/22 History hydroCHLOROthiazide [Hydrodiuril] 25 mg PO Q48H 01/30/22 01/30/22 History Allergies Allergy/AdvReac Type Severity Reaction Status Date / Time enalaprilat [From Vasotec] [facility]ergy Per [facility] Verified 01/30/22 09:09 records tramadol AdvReac Hallucinati Verified 01/30/22 09:09 ons Physical Exam Vitals: Vital Signs Temp Pulse Pulse Resp BP BP Pulse Ox 01/30/22 13:26 97.7 F 115 H 20 108/71 93 L 01/30/22 12:47 110 H 20 109/67 95 01/30/22 11:58 102 H 01/30/22 11:47 105 H 01/30/22 08:47 97.6 F 105 H 18 100/73 94 L 01/30/22 08:08 102 H 22 99/68 94 L 01/30/22 07:44 104 H 01/30/22 07:39 102 H 01/30/22 07:00 100 26 H 99/74 90 L 01/30/22 06:00 102 H 22 100/87 93 L 01/30/22 04:30 100 26 H 97/56 84 L 01/30/22 03:30 106 H 30 H 97/61 93 L 01/30/22 01:40 112 H 30 H 98/56 94 L 01/30/22 01:00 01/30/22 00:20 141 H 44 H 142/92 96 01/29/22 23:39 135 H 45 H 164/115 97 01/29/22 23:24 01/29/22 23:20 133 H 143/109 01/29/22 23:15 01/29/22 23:07 99.8 F H 122 H 42 H 163/107 94 L FiO2 01/30/22 13:26 01/30/22 12:47 01/30/22 11:58 01/30/22 11:47 01/30/22 08:47 01/30/22 08:08 01/30/22 07:44 01/30/22 07:39 01/30/22 07:00 01/30/22 06:00 01/30/22 04:30 01/30/22 03:30 01/30/22 01:40 01/30/22 01:00 70 01/30/22 00:20 01/29/22 23:39 01/29/22 23:24 100 01/29/22 23:20 01/29/22 23:15 100 01/29/22 23:07 Intake and Output 01/30/22 01/30/22 01/30/22 06:59 14:59 22:59 Output Total 999 Balance -999 Output: Urine 600 Uretheral (Kenny) 300 Post Void Residual 399 Other: Weight 81.193 kg Physical Exam: Revealed a 81-year-old white male in no distress Head: Atraumatic, normocephalic HEENT:[Neck is supple.] [No neck masses.] [No thyromegaly.] [No JVD.] Chest: [Minimal crackles at the right base no rhonchi no wheezes Cardiac Exam: [Normal S1 and S2, no S3 gallop, no murmur.] Abdomen: [Soft, nontender, no megaly, no rebound, no guarding, normal bowel sounds.] Extremities: [No clubbing, no edema, no cyanosis.] Neurological Exam: [No focal neurologic deficit.] Alert and oriented 3 Psychiatric: Normal mood affect and normal mental status examination. Skin: No rashes Results - Laboratory Findings CBC and BMP: 01/29/22 23:21 01/30/22 06:38 ABG ABG pH 7.32 (7.35-7.45) L 01/30/22 01:41 ABG pCO2 38 mmHg (35-45) 01/30/22 01:41 ABG pO2 111 mmHg (83-108) H 01/30/22 01:41 ABG O2 Saturation 98.0 % (94-97) H 01/30/22 01:41 PT/INR, D-dimer PT 10.3 sec (9.0-12.0) 01/29/22 23:39 INR 0.9 (<1.2) 01/29/22 23:39 Abnormal lab findings: Abnormal Labs 01/29/22 01/29/22 01/30/22 23:21 23:39 00:14 WBC 11.3 H RBC 4.26 L Neutrophils # (Manual) 9.00 H Metamyelocytes # (Man) 0.23 H Myelocytes # (Manual) 0.11 H ABG pH ABG pO2 ABG HCO3 ABG O2 Saturation Sodium Potassium Chloride Carbon Dioxide BUN Creatinine Glucose POC Glucose (mg/dL) Plasma Lactic Acid Moses 5.3 H* Influenza Type B (PCR) Detected H 01/30/22 01/30/22 01/30/22 01:06 01:41 03:00 WBC RBC Neutrophils # (Manual) Metamyelocytes # (Man) Myelocytes # (Manual) ABG pH 7.32 L ABG pO2 111 H ABG HCO3 20 L ABG O2 Saturation 98.0 H Sodium 135 L Potassium Chloride 93 L Carbon Dioxide 18 L BUN 67 H Creatinine 2.39 H Glucose 281 H POC Glucose (mg/dL) Plasma Lactic Acid Moses 5.9 H* Influenza Type B (PCR) 01/30/22 01/30/22 01/30/22 06:38 06:38 09:52 WBC RBC Neutrophils # (Manual) Metamyelocytes # (Man) Myelocytes # (Manual) ABG pH ABG pO2 ABG HCO3 ABG O2 Saturation Sodium 132 L Potassium 5.2 H Chloride 94 L Carbon Dioxide BUN 71 H Creatinine 2.70 H Glucose 309 H POC Glucose (mg/dL) Plasma Lactic Acid Moses 3.7 H* 3.3 H* Influenza Type B (PCR) 01/30/22 01/30/22 12:43 13:22 WBC RBC Neutrophils # (Manual) Metamyelocytes # (Man) Myelocytes # (Manual) ABG pH ABG pO2 ABG HCO3 ABG O2 Saturation Sodium Potassium Chloride Carbon Dioxide BUN Creatinine Glucose POC Glucose (mg/dL) 364 H Plasma Lactic Acid Moses 3.2 H* Influenza Type B (PCR) - Diagnostic Findings Chest x-ray: image reviewed (As noted in HPI) Assessment and Plan Assessment: Impression: Acute community-acquired pneumonia Influenza B infection Acute lactic acidosis secondary to acute kidney injury and secondary to underlying infection Acute exacerbation of COPD Acute on chronic hypoxic respiratory failure secondary to above Type 2 diabetes Dyslipidemia Benign essential hypertension Recommendation: Continue Tamiflu Continue Rocephin and Zithromax Continue bronchodilators, no need for methylprednisolone, continue Symbicort Check pro calcitonin level Resume home meds We will continue to follow. Continue oxygen and titrate accordingly. Time with Patient: Greater than 30
--- NOTE | 2022-01-30 15:46 | US ---
EXAMINATION TYPE: US kidneys/renal and bladder DATE OF EXAM: 01/30/2022 COMPARISON: None CLINICAL HISTORY: 81 year-old male acute kidney injury. TECHNIQUE: Multiple sonographic images of the kidneys and bladder are obtained. FINDINGS: EXAM MEASUREMENTS: Right Kidney: 10.6 x 4.7 x 5.0 cm Left Kidney: 11.5 x 5.0 x 5.1 cm Right Kidney: no hydronephrosis or masses seen Left Kidney: 1.1cm stone inferior pole. No hydronephrosis. Bladder: not distended, Kenny catheter in place. IMPRESSION: 1. No hydronephrosis. 2. A 1.1 cm stone at the lower pole the left kidney. 3. Kenny catheter in place decompressing the bladder.
[2022-01-30 16:30] LABS: Glucose,Whole Blood 378 mg/dL (70-110)
[2022-01-30] MEDS ORDERED: SODIUM CHLORIDE 0.9% 500 ML 250 ML IV ONE (17:01)
[2022-01-30] MEDS ORDERED: ALBUTEROL NEBULIZED 2.5 MG/3 ML INHALATION PRN (17:05)
[2022-01-30] MEDS ORDERED: ALBUTEROL INHALATION PRN (17:05)
[2022-01-30] MEDS: INSULIN ASPART (NovoLOG) 100 UNIT/ML VIAL SQ SCH ×2 (17:41→20:48)
--- NOTE | 2022-01-30 17:59 | P.HPIM ---
History of Present Illness H&P Date: 01/30/22 Chief Complaint: Pneumonia shortness of breath This is a 81-year-old white male well-known to our practice with a long-standing history of COPD chronic hypoxic respiratory failure maintained on oxygen at home patient follows with Dr. Caro and Dr. Dakota Bills for underlying COPD was seen in the emergency room with 2 week history of nonproductive cough shortness of breath patient presented in significant respiratory distress when he presented to the emergency room complaining of right-sided flank pain denies chest pain chest x-ray reveals right lower lobe pneumonia bilateral screening came back as positive influenza COVID-19 PCR was negative patient had leukocytosis WBC of 11.3 hemoglobin 13.1 ABG on admission 70% FiO2 a pO2 of 111 and a pCO2 of 38 pH was 7.3 patient has been on IPAP at home and currently has acute kidney injury with a BUNs of 71 creatinine 2.7 blood culture was 364 lactic acid was elevated and pro-calcitonin was elevated Review of Systems Constitutional: Reports as per HPI Ears, nose, mouth and throat: Reports as per HPI Cardiovascular: Reports as per HPI Respiratory: Reports cough, Reports cough with sputum, Reports home oxygen, Reports respiratory infections, Reports wheezing Gastrointestinal: Reports as per HPI Genitourinary: Reports urinary retention Musculoskeletal: Reports muscle cramps, Reports muscle weakness Integumentary: Reports as per HPI Neurological: Reports as per HPI Psychiatric: Reports as per HPI Endocrine: Reports high blood sugars, Reports polydipsia Past Medical History Past Medical History: Chest Pain / Angina, COPD, Diabetes Mellitus, Hyperlipidemia, Hypertension, Myocardial Infarction ([place]), Pneumonia, Renal Disease, Skin Disorder Additional Past Medical History / Comment(s): Stage 2 kidney failure, gout Last Myocardial Infarction Date:: 1990 History of Any Multi-Drug Resistant Organisms: None Reported Past Surgical History: Heart Catheterization, Joint Replacement Additional Past Surgical History / Comment(s): AAA repair, rt leg aneursym with 2 stents, sarah cataracts, neck surgery, lt hip replacement Past Anesthesia/Blood Transfusion Reactions: Previous Problems w/ Anesthesia, Motion Sickness Additional Past Anesthesia/Blood Transfusion Reaction / Comment(s): previous difficulty with general anesthesia due to COPD and difficulty breathing Past Psychological History: No Psychological Hx Reported Past Alcohol Use History: None Reported Past Drug Use History: None Reported - Past Family History Father Additional Family Medical History / Comment(s): AT AGE 63 MASSIVE [place] Mother Family Medical History: No Reported History Additional Family Medical History / Comment(s): AGE 42 UNCONTROLLED HIGH BLOOD PRESSURE/ MIGRAINES Medications and Allergies Home Medications Medication Instructions Recorded Confirmed Type Albuterol Inhaler [Ventolin Hfa 1 puff INHALATION RT-Q6H PRN 01/28/14 01/30/22 History Inhaler] Fluticasone Propionate [Flonase] 1 spr EA NOSTRIL BID 01/28/14 01/30/22 History metFORMIN HCL [Glucophage] 500 mg PO BID 01/28/14 01/30/22 History Albuterol Nebulized [Ventolin 3 ml INHALATION RT-QID PRN 05/29/14 01/30/22 History Nebulized] Losartan Potassium 100 mg PO DAILY 02/22/16 01/30/22 History Alogliptin Benzoate [Alogliptin] 12.5 mg PO DAILY 03/17/19 01/30/22 History Tiotropium [place] [Spiriva 2 puff INHALATION RT-DAILY 03/17/19 01/30/22 History Respimat] Atorvastatin Calcium [Lipitor] 40 mg PO HS 01/30/22 01/30/22 History Carboxymethylcellulose Sodium 1 drop BOTH EYES DAILY PRN 01/30/22 01/30/22 History Cholecalciferol [Vitamin D3 (25 25 mcg PO DAILY 01/30/22 01/30/22 History Mcg = 1000 Iu)] Fluticasone Propion/Salmeterol 1 puff INHALATION RT-BID 01/30/22 01/30/22 Histor y [Advair 500-50 Diskus] Lidocaine 5% Patch [Lidoderm 5% 1 patch TRANSDERM DAILY 01/30/22 01/30/22 History Patch] Magnesium Oxide 420mg 420 mg PO BID 01/30/22 01/30/22 History Metoprolol Tartrate [Lopressor] 75 mg PO BID 01/30/22 01/30/22 History allopurinoL [Zyloprim] 100 mg PO DAILY 01/30/22 01/30/22 History hydroCHLOROthiazide [Hydrodiuril] 25 mg PO Q48H 01/30/22 01/30/22 History Allergies Allergy/AdvReac Type Severity Reaction Status Date / Time enalaprilat [From Vasotec] [facility] Verified 01/30/22 09:09 records tramadol AdvReac Hallucinati Verified 01/30/22 09:09 ons Physical Exam Osteopathic Statement: *. No significant issues noted on an osteopathic structural exam other than those noted in the History and Physical/Consult. Vitals: Vital Signs Temp Pulse Pulse Resp BP BP Pulse Ox 01/30/22 15:20 108 H 01/30/22 15:10 108 H 01/30/22 13:26 97.7 F 115 H 20 108/71 93 L 01/30/22 12:47 110 H 20 109/67 95 01/30/22 11:58 102 H 01/30/22 11:47 105 H 01/30/22 08:47 97.6 F 105 H 18 100/73 94 L 01/30/22 08:08 102 H 22 99/68 94 L 01/30/22 07:44 104 H 01/30/22 07:39 102 H 01/30/22 07:00 100 26 H 99/74 90 L 01/30/22 06:00 102 H 22 100/87 93 L 01/30/22 04:30 100 26 H 97/56 84 L 01/30/22 03:30 106 H 30 H 97/61 93 L 01/30/22 01:40 112 H 30 H 98/56 94 L 01/30/22 01:00 01/30/22 00:20 141 H 44 H 142/92 96 01/29/22 23:39 135 H 45 H 164/115 97 01/29/22 23:24 01/29/22 23:20 133 H 143/109 01/29/22 23:15 01/29/22 23:07 99.8 F H 122 H 42 H 163/107 94 L FiO2 01/30/22 15:20 01/30/22 15:10 01/30/22 13:26 01/30/22 12:47 01/30/22 11:58 01/30/22 11:47 01/30/22 08:47 01/30/22 08:08 01/30/22 07:44 01/30/22 07:39 01/30/22 07:00 01/30/22 06:00 01/30/22 04:30 01/30/22 03:30 01/30/22 01:40 01/30/22 01:00 70 01/30/22 00:20 01/29/22 23:39 01/29/22 23:24 100 01/29/22 23:20 01/29/22 23:15 100 01/29/22 23:07 Intake and Output 01/30/22 01/30/22 01/30/22 06:59 14:59 22:59 Output Total 999 Balance -999 Output: Urine 600 Uretheral (Kenny) 300 Post Void Residual 399 Other: Weight 81.193 kg General: [Patient awake, alert and oriented times 3. Patient in no acute distress.] HEENT: [PERRL. EOMI. No pharyngeal erythema or exudate.] Neck: [No adenopathy.] Cardiac: [Heart regular in rate and rhythm. No S3. No S4. No clicks, rubs. No murmur.] Lungs: Rhonchi bilateral, expiration wheezes bilateral some labored breathing Abdomen: [No mass. No organomegaly. Bowel sounds presnt and normoactive in all 4 quadrants.] Extremes: [No edema no cyanosis no claudication normal pulses] : [] Musculoskeletal: [No joint erythema, edema or tenderness.] Skin: [No rash.] Neurologic: [No lateralizing deficits. CN II - XII grossly intact.] Lymphatic: [No adenopathy.] Results CBC & Chem 7: 01/29/22 23:21 01/30/22 06:38 Labs: Abnormal Lab Results - Last 24 Hours (Table) 01/29/22 01/29/22 01/30/22 Range/Units 23:21 23:39 00:14 WBC 11.3 H (3.8-10.6) k/uL RBC 4.26 L (4.30-5.90) m/uL Neutrophils # (Manual) 9.00 H (1.3-7.7) k/uL Metamyelocytes # (Man) 0.23 H (0) k/uL Myelocytes # (Manual) 0.11 H (0) k/uL ABG pH (7.35-7.45) ABG pO2 (83-108) mmHg ABG HCO3 (21-25) mmol/L ABG O2 Saturation (94-97) % Sodium (137-145) mmol/L Potassium (3.5-5.1) mmol/L Chloride (98-107) mmol/L Carbon Dioxide (22-30) mmol/L BUN (9-20) mg/dL Creatinine (0.66-1.25) mg/dL Glucose (74-99) mg/dL POC Glucose (mg/dL) (70-110) mg/dL Plasma Lactic Acid Moses 5.3 H* (0.7-2.0) mmol/L Procalcitonin (0.02-0.09) ng/mL Influenza Type B (PCR) Detected H (Not Detectd) 01/30/22 01/30/22 01/30/22 Range/Units 01:06 01:41 03:00 WBC (3.8-10.6) k/uL RBC (4.30-5.90) m/uL Neutrophils # (Manual) (1.3-7.7) k/uL Metamyelocytes # (Man) (0) k/uL Myelocytes # (Manual) (0) k/uL ABG pH 7.32 L (7.35-7.45) ABG pO2 111 H (83-108) mmHg ABG HCO3 20 L (21-25) mmol/L ABG O2 Saturation 98.0 H (94-97) % Sodium 135 L (137-145) mmol/L Potassium (3.5-5.1) mmol/L Chloride 93 L (98-107) mmol/L Carbon Dioxide 18 L (22-30) mmol/L BUN 67 H (9-20) mg/dL Creatinine 2.39 H (0.66-1.25) mg/dL Glucose 281 H (74-99) mg/dL POC Glucose (mg/dL) (70-110) mg/dL Plasma Lactic Acid Moses 5.9 H* (0.7-2.0) mmol/L Procalcitonin (0.02-0.09) ng/mL Influenza Type B (PCR) (Not Detectd) 01/30/22 01/30/22 01/30/22 Range/Units 06:38 06:38 06:38 WBC (3.8-10.6) k/uL RBC (4.30-5.90) m/uL Neutrophils # (Manual) (1.3-7.7) k/uL Metamyelocytes # (Man) (0) k/uL Myelocytes # (Manual) (0) k/uL ABG pH (7.35-7.45) ABG pO2 (83-108) mmHg ABG HCO3 (21-25) mmol/L ABG O2 Saturation (94-97) % Sodium 132 L (137-145) mmol/L Potassium 5.2 H (3.5-5.1) mmol/L Chloride 94 L (98-107) mmol/L Carbon Dioxide (22-30) mmol/L BUN 71 H (9-20) mg/dL Creatinine 2.70 H (0.66-1.25) mg/dL Glucose 309 H (74-99) mg/dL POC Glucose (mg/dL) (70-110) mg/dL Plasma Lactic Acid Moses 3.7 H* (0.7-2.0) mmol/L Procalcitonin 12.80 H (0.02-0.09) ng/mL Influenza Type B (PCR) (Not Detectd) 01/30/22 01/30/22 01/30/22 Range/Units 09:52 12:43 13:22 WBC (3.8-10.6) k/uL RBC (4.30-5.90) m/uL Neutrophils # (Manual) (1.3-7.7) k/uL Metamyelocytes # (Man) (0) k/uL Myelocytes # (Manual) (0) k/uL ABG pH (7.35-7.45) ABG pO2 (83-108) mmHg ABG HCO3 (21-25) mmol/L ABG O2 Saturation (94-97) % Sodium (137-145) mmol/L Potassium (3.5-5.1) mmol/L Chloride (98-107) mmol/L Carbon Dioxide (22-30) mmol/L BUN (9-20) mg/dL Creatinine (0.66-1.25) mg/dL Glucose (74-99) mg/dL POC Glucose (mg/dL) 364 H (70-110) mg/dL Plasma Lactic Acid Moses 3.3 H* 3.2 H* (0.7-2.0) mmol/L Procalcitonin (0.02-0.09) ng/mL Influenza Type B (PCR) (Not Detectd) 01/30/22 01/30/22 Range/Units 15:29 16:28 WBC (3.8-10.6) k/uL RBC (4.30-5.90) m/uL Neutrophils # (Manual) (1.3-7.7) k/uL Metamyelocytes # (Man) (0) k/uL Myelocytes # (Manual) (0) k/uL ABG pH (7.35-7.45) ABG pO2 (83-108) mmHg ABG HCO3 (21-25) mmol/L ABG O2 Saturation (94-97) % Sodium (137-145) mmol/L Potassium (3.5-5.1) mmol/L Chloride (98-107) mmol/L Carbon Dioxide (22-30) mmol/L BUN (9-20) mg/dL Creatinine (0.66-1.25) mg/dL Glucose (74-99) mg/dL POC Glucose (mg/dL) 378 H (70-110) mg/dL Plasma Lactic Acid Moses 2.7 H* (0.7-2.0) mmol/L Procalcitonin (0.02-0.09) ng/mL Influenza Type B (PCR) (Not Detectd) Thrombosis Risk Factor Assmnt - DVT/VTE Prophylaxis DVT/VTE Prophylaxis: Pharmacologic Prophylaxis ordered Assessment and Plan (1) Sepsis Current Visit: Yes Status: Acute Code(s): A41.9 - SEPSIS, UNSPECIFIED ORGANISM SNOMED Code(s): 80126955 (2) CAP (community acquired pneumonia) Current Visit: Yes Status: Acute Code(s): J18.9 - PNEUMONIA, UNSPECIFIED ORGANISM SNOMED Code(s): 455408380 (3) Influenza B Current Visit: Yes Status: Acute Code(s): J10.1 - FLU DUE TO OTH IDENT INFLUENZA VIRUS W OTH RESP MANIFEST SNOMED Code(s): 82727865 (4) Lactic acidosis Current Visit: Yes Status: Acute Code(s): E87.2 - ACIDOSIS SNOMED Code(s): 36893478 (5) Hyperlipidemia Current Visit: No Status: Acute Code(s): E78.5 - HYPERLIPIDEMIA, UNSPECIFIED SNOMED Code(s): 15999944 (6) Pneumonia Current Visit: No Status: Acute Code(s): J18.9 - PNEUMONIA, UNSPECIFIED ORGANISM SNOMED Code(s): 295751264 (7) Diabetes Current Visit: No Status: Chronic Code(s): E11.9 - TYPE 2 DIABETES MELLITUS WITHOUT COMPLICATIONS SNOMED Code(s): 97148121 (8) Hypertension Current Visit: No Status: Chronic Code(s): I10 - ESSENTIAL (PRIMARY) HYPE RTENSION SNOMED Code(s): 62791647 Plan: Respiratory sepsis Acute exacerbation of chronic COPD Acute kidney injury Influenza B right lower lobe pneumonia Type 2 diabetes patient is BiPAP dependent O2 dependent and steroid dependent Will continue Rocephin 1 g IV piggyback every 24 hours, will continue Zithromax 500 mg IV piggyback every 24 hours 250 mL fluid bolus over the next half hour We'll continue to follow closely Time with Patient: Greater than 30
[2022-01-30 19:44] LABS: Glucose,Whole Blood 279 mg/dL (70-110)
[2022-01-30] MEDS: FLUTICASONE 50MCG/SPRAY NASAL 16GM EA NOSTRIL SCH (20:47)
[2022-01-30] MEDS: MAGNESIUM OXIDE 400 MG TAB PO SCH (20:47)
[2022-01-30] MEDS: METOPROLOL TARTRATE 25 MG TAB PO SCH (20:47)
[2022-01-30] MEDS: ATORVASTATIN 40 MG TAB PO SCH (20:47)
[2022-01-30 21:13] LABS: Appearance,Urine Clear (Clear); Bacteria,Urine Rare /hpf; Bilirubin,Urine Negative (Negative); Blood,Urine Moderate (Negative); Color,Urine Yellow; Glucose,Urine (UA) 4+ (Negative); Ketones,Urine Negative (Negative); Leukocyte Esterase,Urine Negative (Negative); Mucus,Urine Rare /hpf; Nitrite,Urine Negative (Negative); Protein,Urine Trace (Negative); RBC,Urine 26 /hpf (0-5); Specific Gravity,Urine 1.015 (1.001-1.035); Urobilinogen,Urine <2.0 mg/dL (<2.0); WBC,Urine 8 /hpf (0-5)
[2022-01-31 04:10] LABS: Basophils % (A) 0 %; Eosinophils % (A) 0 %; HCT 38.5 % (39.0-53.0); HGB 11.8 gm/dL (13.0-17.5); Lymphocytes # (A) 0.5 k/uL (1.0-4.8); Lymphocytes % (A) 3 %; MCH 30.2 pg (25.0-35.0); MCHC 30.7 g/dL (31.0-37.0); MCV 98.3 fL (80.0-100.0); Monocytes # (A) 0.8 k/uL (0-1.0); Monocytes % (A) 5 %; Neutrophils # (A) 14.4 k/uL (1.3-7.7); Neutrophils % (A) 90 %; Platelet Count 298 k/uL (150-450); RBC 3.91 m/uL (4.30-5.90); RDW 14.2 % (11.5-15.5); WBC 15.9 k/uL (3.8-10.6)
[2022-01-31 04:25] LABS: Calcium 9.5 mg/dL (8.4-10.2); Potassium 4.9 mmol/L (3.5-5.1)
[2022-01-31 05:53] LABS: Glucose,Whole Blood 156 mg/dL (70-110)
[2022-01-31] MEDS ORDERED: OSELTAMIVIR 60 MG/10 ML ORAL SYRINGE PO SCH (06:00)
[2022-01-31] MEDS: IPRATROPIUM-ALBUTEROL 3 ML NEB INHALATION SCH ×4 (07:03→19:48)
[2022-01-31] MEDS: SYMBICORT 160-4.5 MCG INHALER INHALATION SCH ×4 (07:03→19:48)
[2022-01-31] MEDS: INSULIN ASPART (NovoLOG) 100 UNIT/ML VIAL SQ SCH ×4 (07:13→21:24)
[2022-01-31] MEDS: LINAGLIPTIN 5 MG TABLET PO SCH (08:53)
[2022-01-31] MEDS: CHOLECALCIFEROL 25 MCG (1000 IU) TABLET PO SCH (08:53)
[2022-01-31] MEDS: MAGNESIUM OXIDE 400 MG TAB PO SCH ×2 (08:53→21:24)
[2022-01-31] MEDS: allopurinoL 100 MG TAB PO SCH (08:53)
[2022-01-31] MEDS: METOPROLOL TARTRATE 25 MG TAB PO SCH ×2 (08:53→21:24)
[2022-01-31] MEDS ORDERED: LOSARTAN 50 MG TAB PO SCH (09:00)
[2022-01-31] MEDS: LIDOCAINE 5% PATCH TOPICAL SCH ×2 (09:10→12:28)
--- NOTE | 2022-01-31 09:48 | P.PN ---
Subjective Patient is seen in follow-up for acute kidney injury on chronic kidney disease. Renal function improving. Has a Kenny catheter for urinary retention. Nonoliguric. Oral intake good. Blood pressure stable. On IV fluids. Vital signs are stable. General: Awake. No acute distress. HEENT: Head exam is unremarkable. LUNGS: Breath sounds decreased. HEART: Rate and Rhythm are regular. ABDOMEN: Soft, no distention. EXTREMITITES: No edema. Objective - Vital Signs Vital signs: Vital Signs Temp 98.3 F 01/31/22 08:55 Pulse 90 01/31/22 08:55 Resp 18 01/31/22 08:55 BP 120/77 01/31/22 08:55 Pulse Ox 93 L 01/31/22 09:15 FiO2 70 01/30/22 01:00 Intake & Output 01/30/22 01/31/22 01/31/22 18:59 06:59 18:59 Intake Total 240 Output Total 999 945 Balance -759 -945 Intake: Oral 240 Output: Urine 600 945 Uretheral (Kenny) 300 220 Post Void Residual 399 Other: Voiding Method Urinal - Labs CBC & Chem 7: 01/31/22 03:44 01/31/22 03:44 Labs: Abnormal Lab Results - Last 24 Hours (Table) 01/30/22 01/30/22 01/30/22 Range/Units 06:38 09:52 12:43 WBC (3.8-10.6) k/uL RBC (4.30-5.90) m/uL Hgb (13.0-17.5) gm/dL Hct (39.0-53.0) % MCHC (31.0-37.0) g/dL Neutrophils # (1.3-7.7) k/uL Lymphocytes # (1.0-4.8) k/uL Sodium (137-145) mmol/L BUN (9-20) mg/dL Creatinine (0.66-1.25) mg/dL Glucose (74-99) mg/dL POC Glucose (mg/dL) (70-110) mg/dL Plasma Lactic Acid Moses 3.3 H* 3.2 H* (0.7-2.0) mmol/L Procalcitonin 12.80 H (0.02-0.09) ng/mL Urine Protein (Negative) Urine Glucose (UA) (Negative) Urine Blood (Negative) Urine RBC (0-5) /hpf Urine WBC (0-5) /hpf Urine Bacteria (None) /hpf Urine Mucus (None) /hpf 01/30/22 01/30/22 01/30/22 Range/Units 13:22 15:29 16:28 WBC (3.8-10.6) k/uL RBC (4.30-5.90) m/uL Hgb (13.0-17.5) gm/dL Hct (39.0-53.0) % MCHC (31.0-37.0) g/dL Neutrophils # (1.3-7.7) k/uL Lymphocytes # (1.0-4.8) k/uL Sodium (137-145) mmol/L BUN (9-20) mg/dL Creatinine (0.66-1.25) mg/dL Glucose (74-99) mg/dL POC Glucose (mg/dL) 364 H 378 H (70-110) mg/dL Plasma Lactic Acid Moses 2.7 H* (0.7-2.0) mmol/L Procalcitonin (0.02-0.09) ng/mL Urine Protein (Negative) Urine Glucose (UA) (Negative) Urine Blood (Negative) Urine RBC (0-5) /hpf Urine WBC (0-5) /hpf Urine Bacteria (None) /hpf Urine Mucus (None) /hpf 01/30/22 01/30/22 01/30/22 Range/Units 18:56 19:41 20:56 WBC (3.8-10.6) k/uL RBC (4.30-5.90) m/uL Hgb (13.0-17.5) gm/dL Hct (39.0-53.0) % MCHC (31.0-37.0) g/dL Neutrophils # (1.3-7.7) k/uL Lymphocytes # (1.0-4.8) k/uL Sodium (137-145) mmol/L BUN (9-20) mg/dL Creatinine (0.66-1.25) mg/dL Glucose (74-99) mg/dL POC Glucose (mg/dL) 279 H (70-110) mg/dL Plasma Lactic Acid Moses 2.9 H* (0.7-2.0) mmol/L Procalcitonin (0.02-0.09) ng/mL Urine Protein Trace H (Negative) Urine Glucose (UA) 4+ H (Negative) Urine Blood Moderate H (Negative) Urine RBC 26 H (0-5) /hpf Urine WBC 8 H (0-5) /hpf Urine Bacteria Rare H (None) /hpf Urine Mucus Rare H (None) /hpf 01/30/22 01/31/22 01/31/22 Range/Units 21:51 00:13 03:44 WBC 15.9 H (3.8-10.6) k/uL RBC 3.91 L (4.30-5.90) m/uL Hgb 11.8 L (13.0-17.5) gm/dL Hct 38.5 L (39.0-53.0) % MCHC 30.7 L (31.0-37.0) g/dL Neutrophils # 14.4 H (1.3-7.7) k/uL Lymphocytes # 0.5 L (1.0-4.8) k/uL Sodium (137-145) mmol/L BUN (9-20) mg/dL Creatinine (0.66-1.25) mg/dL Glucose (74-99) mg/dL POC Glucose (mg/dL) (70-110) mg/dL Plasma Lactic Acid Moses 2.5 H* 2.2 H* (0.7-2.0) mmol/L Procalcitonin (0.02-0.09) ng/mL Urine Protein (Negative) Urine Glucose (UA) (Negative) Urine Blood (Negative) Urine RBC (0-5) /hpf Urine WBC (0-5) /hpf Urine Bacteria (None) /hpf Urine Mucus (None) /hpf 01/31/22 01/31/22 Range/Units 03:44 05:52 WBC (3.8-10.6) k/uL RBC (4.30-5.90) m/uL Hgb (13.0-17.5) gm/dL Hct (39.0-53.0) % MCHC (31.0-37.0) g/dL Neutrophils # (1.3-7.7) k/uL Lymphocytes # (1.0-4.8) k/uL Sodium 136 L (137-145) mmol/L BUN 71 H (9-20) mg/dL Creatinine 1.66 H (0.66-1.25) mg/dL Glucose 151 H (74-99) mg/dL POC Glucose (mg/dL) 156 H (70-110) mg/dL Plasma Lactic Acid Moses (0.7-2.0) mmol/L Procalcitonin (0.02-0.09) ng/mL Urine Protein (Negative) Urine Glucose (UA) (Negative) Urine Blood (Negative) Urine RBC (0-5) /hpf Urine WBC (0-5) /hpf Urine Bacteria (None) /hpf Urine Mucus (None) /hpf Assessment and Plan Plan: Assessment: 1. Acute kidney injury secondary to ATN secondary to infection and further worsened with the use of losartan and diuretic. Also component of urinary rete ntion. Renal function better. Creatinine 1.66 today. No hydronephrosis noted on ultrasound. 2. Chronic kidney disease stage IIIa with baseline creatinine near 1.3-1.4 secondary to nephrosclerosis and diabetic kidney disease. 3. Acute hypoxic respiratory failure. 4. Influenza B infection. 5. Diabetes mellitus. 6. Metabolic acidosis secondary to acute kidney injury and lactic acidosis. Resolved. 7. Hyponatremia secondary to acute kidney injury. Improved. Plan: Hep-Lock IV fluids. Encouraged oral intake. Decrease dose of losartan to 50 mg once daily and hold for systolic blood pressure less than 120. Avoid nephrotoxins. Continue to monitor renal function and urine output. Repeat chest x-ray.
[2022-01-31 11:50] LABS: Glucose,Whole Blood 181 mg/dL (70-110)
[2022-01-31] MEDS: SODIUM CHLORIDE 0.9% 1,000 ML IV SCH (12:06)
[2022-01-31] MEDS: AZITHROMYCIN 500 MG in SODIUM CHLORIDE 0.9% 250 ML IVPB SCH (12:29)
[2022-01-31] MEDS: FLUTICASONE 50MCG/SPRAY NASAL 16GM EA NOSTRIL SCH ×2 (12:31→21:24)
--- NOTE | 2022-01-31 12:32 | XR ---
EXAMINATION TYPE: XR chest 1V DATE OF EXAM: 01/31/2022 HISTORY: Shortness of breath. COMPARISON: 01/29/2022 TECHNIQUE: Single view of the chest is submitted. FINDINGS: Persistent right lower lobe atelectasis and/or infiltrate with increasing effusion. The left lung is clear. The heart is stable. Hilar and mediastinal structures are within normal limits. Degenerative changes are seen of the dorsal spine. IMPRESSION: 1. Persistent right lower lobe atelectasis and/or infiltrate with increasing effusion.
--- NOTE | 2022-01-31 15:06 | P.PN ---
Subjective Progress Note Date: 01/31/22 Principal diagnosis: Acute right lower lobe pneumonia This is a 81-year-old white male with history of COPD, chronic hypoxic respiratory failure, maintained on oxygen at home, patient follows up with Dr. Aaron lopez for his underlying COPD. Patient was seen in the ER this morning with almost 2 weeks history of nonproductive cough, shortness of breath, wheezing, patient was in significant respiratory distress upon arrival to the ER, he was also complaining of right-sided flank pain. Patient denied any sick contacts. Denied any chest pain. Chest x-ray question a right lower lobe pneumonia is viral screening came back positive for influenza B. COVID-19 PCR was negative. Patient was noted to have a bit of leukocytosis with WBC count of 11.3 hemoglobin 13.1. ABG on 70% FiO2 showed a pO2 of 111 pCO2 38 pH of 7.3 to apparently this was done on BiPAP at 70% patient was also noted to have acute kidney injury with a BUN of 71 creatinine 2.70 and his blood sugar was 364 patient was admitted and this consult was initiated. Patient is now receiving Rocephin and Zithromax is also receiving bronchodilators in the form of DuoNeb and Symbicort. He is also on Tamiflu, and his IV fluid is at 75 mL per hour patient was seen by nephrology in consultation for his acute kidney injury renal ultrasound is pending. Reevaluated today on 01/31/22, patient is on 10 L high flow nasal cannula O2 sats is 94%, he is afebrile with a temp of 97 7 blood pressure is 123/70 heart rate is 82, patient feels better today compared to how he felt yesterday. Remains on Tamiflu remains on antibiotics and he remains on bronchodilators. Definite improvement compared to yesterday, nonetheless remains relatively ill. WBC count today is 15.9 hemoglobin 11.80 left lites are normal BUN is 71 creatinine 1.66, improving compared to admission creatinine Objective - Vital Signs Vital signs: Vital Signs Temp 97.7 F 01/31/22 12:00 Pulse 82 01/31/22 12:00 Resp 20 01/31/22 12:00 BP 123/70 01/31/22 12:00 Pulse Ox 94 L 01/31/22 12:00 FiO2 70 01/30/22 01:00 Intake & Output 0901/31/22 01/31/22 18:59 06:59 18:59 Intake Total 240 360 Output Total 999 945 675 Balance -759 -945 -315 Intake: Oral 240 360 Output: Urine 600 945 675 Uretheral (Kenny) 300 220 Post Void Residual 399 Other: Voiding Method Urinal - Exam Physical Exam: Revealed a 81-year-old white male in no distress, on 10 L high flow nasal cannula Head: Atraumatic, normocephalic HEENT:[Neck is supple.] [No neck masses.] [No thyromegaly.] [No JVD.] Chest: [Minimal crackles at the right base no rhonchi no wheezes Cardiac Exam: [Normal S1 and S2, no S3 gallop, no murmur.] Abdomen: [Soft, nontender, no megaly, no rebound, no guarding, normal bowel sounds.] Extremities: [No clubbing, no edema, no cyanosis.] Neurological Exam: [No focal neurologic deficit.] Alert and oriented 3 Psychiatric: Normal mood affect and normal mental status examination. Skin: No rashes - Labs CBC & Chem 7: 01/31/22 03:44 01/31/22 03:44 Labs: Abnormal Lab Results - Last 24 Hours (Table) 01/30/22 01/30/22 01/30/22 Range/Units 06:38 15:29 16:28 WBC (3.8-10.6) k/uL RBC (4.30-5.90) m/uL Hgb (13.0-17.5) gm/dL Hct (39.0-53.0) % MCHC (31.0-37.0) g/dL Neutrophils # (1.3-7.7) k/uL Lymphocytes # (1.0-4.8) k/uL Sodium (137-145) mmol/L BUN (9-20) mg/dL Creatinine (0.66-1.25) mg/dL Glucose (74-99) mg/dL POC Glucose (mg/dL) 378 H (70-110) mg/dL Plasma Lactic Acid Moses 2.7 H* (0.7-2.0) mmol/L Procalcitonin 12.80 H (0.02-0.09) ng/mL Urine Protein (Negative) Urine Glucose (UA) (Negative) Urine Blood (Negative) Urine RBC (0-5) /hpf Urine WBC (0-5) /hpf Urine Bacteria (None) /hpf Urine Mucus (None) /hpf 01/30/22 01/30/22 01/30/22 Range/Units 18:56 19:41 20:56 WBC (3.8-10.6) k/uL RBC (4.30-5.90) m/uL Hgb (13.0-17.5) gm/dL Hct (39.0-53.0) % MCHC (31.0-37.0) g/dL Neutrophils # (1.3-7.7) k/uL Lymphocytes # (1.0-4.8) k/uL Sodium (137-145) mmol/L BUN (9-20) mg/dL Creatinine (0.66-1.25) mg/dL Glucose (74-99) mg/dL POC Glucose (mg/dL) 279 H (70-110) mg/dL Plasma Lactic Acid Moses 2.9 H* (0.7-2.0) mmol/L Procalcitonin (0.02-0.09) ng/mL Urine Protein Trace H (Negative) Urine Glucose (UA) 4+ H (Negative) Urine Blood Moderate H (Negative) Urine RBC 26 H (0-5) /hpf Urine WBC 8 H (0-5) /hpf Urine Bacteria Rare H (None) /hpf Urine Mucus Rare H (None) /hpf 01/30/22 01/31/22 01/31/22 Range/Units 21:51 00:13 03:44 WBC 15.9 H (3.8-10.6) k/uL RBC 3.91 L (4.30-5.90) m/uL Hgb 11.8 L (13.0-17.5) gm/dL Hct 38.5 L (39.0-53.0) % MCHC 30.7 L (31.0-37.0) g/dL Neutrophils # 14.4 H (1.3-7.7) k/uL Lymphocytes # 0.5 L (1.0-4.8) k/uL Sodium (137-145) mmol/L BUN (9-20) mg/dL Creatinine (0.66-1.25) mg/dL Glucose (74-99) mg/dL POC Glucose (mg/dL) (70-110) mg/dL Plasma Lactic Acid Moses 2.5 H* 2.2 H* (0.7-2.0) mmol/L Procalcitonin (0.02-0.09) ng/mL Urine Protein (Negative) Urine Glucose (UA) (Negative) Urine Blood (Negative) Urine RBC (0-5) /hpf Urine WBC (0-5) /hpf Urine Bacteria (None) /hpf Urine Mucus (None) /hpf 01/31/22 01/31/22 01/31/22 Range/Units 03:44 05:52 11:46 WBC (3.8-10.6) k/uL RBC (4.30-5.90) m/uL Hgb (13.0-17.5) gm/dL Hct (39.0-53.0) % MCHC (31.0-37.0) g/dL Neutrophils # (1.3-7.7) k/uL Lymphocytes # (1.0-4.8) k/uL Sodium 136 L (137-145) mmol/L BUN 71 H (9-20) mg/dL Creatinine 1.66 H (0.66-1.25) mg/dL Glucose 151 H (74-99) mg/dL POC Glucose (mg/dL) 156 H 181 H (70-110) mg/dL Plasma Lactic Acid Moses (0.7-2.0) mmol/L Procalcitonin (0.02-0.09) ng/mL Urine Protein (Negative) Urine Glucose (UA) (Negative) Urine Blood (Negative) Urine RBC (0-5) /hpf Urine WBC (0-5) /hpf Urine Bacteria (None) /hpf Urine Mucus (None) /hpf Assessment and Plan Assessment: Impression: Acute community-acquired pneumonia, mostly involving the right lower lobe Influenza B infection Acute exacerbation of COPD Acute on chronic hypoxic respiratory failure secondary to above Type 2 diabetes Dyslipidemia Benign essential hypertension Recommendation: Continue Tamiflu Continue Rocephin and Zithromax Continue bronchodilators, including Symbicort Pro calcitonin level was noted to be quite high at 12.80 Resume home meds We will continue to follow. Continue oxygen and titrate accordingly. Time with Patient: Less than 30
[2022-01-31 16:51] LABS: Glucose,Whole Blood 136 mg/dL (70-110)
[2022-01-31] MEDS: metFORMIN 500 MG TAB PO SCH (16:59)
[2022-01-31 19:38] LABS: Glucose,Whole Blood 237 mg/dL (70-110)
[2022-01-31] MEDS: ATORVASTATIN 40 MG TAB PO SCH (21:24)
[2022-01-31] MEDS: OSELTAMIVIR 60 MG/10 ML ORAL SYRINGE PO SCH (21:25)
[2022-02-01 05:51] LABS: Glucose,Whole Blood 147 mg/dL (70-110)
[2022-02-01] MEDS: INSULIN ASPART (NovoLOG) 100 UNIT/ML VIAL SQ SCH ×4 (06:54→21:49)
[2022-02-01] MEDS: metFORMIN 500 MG TAB PO SCH (06:54)
[2022-02-01] MEDS: IPRATROPIUM-ALBUTEROL 3 ML NEB INHALATION SCH ×4 (07:41→20:32)
[2022-02-01] MEDS: SYMBICORT 160-4.5 MCG INHALER INHALATION SCH ×4 (07:41→20:32)
[2022-02-01 07:49] LABS: Calcium 9.4 mg/dL (8.4-10.2)
[2022-02-01] MEDS ORDERED: hydroCHLOROthiazide 25 MG TAB PO SCH (09:00)
[2022-02-01] MEDS: METOPROLOL TARTRATE 25 MG TAB PO SCH ×2 (09:20→21:50)
[2022-02-01] MEDS: MAGNESIUM OXIDE 400 MG TAB PO SCH ×2 (09:20→21:50)
[2022-02-01] MEDS: TAMSULOSIN 0.4 MG CAP.ER.24H PO SCH (09:20)
[2022-02-01] MEDS: allopurinoL 100 MG TAB PO SCH (09:21)
[2022-02-01] MEDS: LINAGLIPTIN 5 MG TABLET PO SCH (09:21)
[2022-02-01] MEDS: FLUTICASONE 50MCG/SPRAY NASAL 16GM EA NOSTRIL SCH ×2 (09:21→21:51)
[2022-02-01] MEDS: CHOLECALCIFEROL 25 MCG (1000 IU) TABLET PO SCH (09:21)
[2022-02-01] MEDS: LIDOCAINE 5% PATCH TOPICAL SCH (09:21)
[2022-02-01] MEDS: LOSARTAN 50 MG TAB PO SCH (09:21)
[2022-02-01] MEDS: OSELTAMIVIR 60 MG/10 ML ORAL SYRINGE PO SCH ×2 (09:23→21:50)
--- NOTE | 2022-02-01 10:21 | P.PN ---
Subjective Patient is seen in follow-up for acute kidney injury on chronic kidney disease. Renal function improving. Has a Kenny catheter for urinary retention. Nonoliguric. Oral intake good. Blood pressure stable. On IV fluids. No active complaints. Vital signs are stable. General: Awake. No acute distress. HEENT: Head exam is unremarkable. On nasal cannula. LUNGS: Breath sounds decreased. HEART: Rate and Rhythm are regular. ABDOMEN: Soft, no distention. EXTREMITITES: No edema. Objective - Vital Signs Vital signs: Vital Signs Temp 98.3 F 02/01/22 04:45 Pulse 90 02/01/22 07:56 Resp 19 02/01/22 04:45 BP 120/79 02/01/22 04:45 Pulse Ox 95 02/01/22 04:45 FiO2 70 01/30/22 01:00 Intake & Output 01/31/22 02/01/22 02/01/22 18:59 06:59 18:59 Intake Total 480 300 118 Output Total 1075 900 525 Balance -595 -600 -407 Intake: Intake, IV Titration 300 Amount Sodium Chloride 0.9% 1, 300 000 ml @ 50 mls/hr IV . Q20H [facility] Rx#:[id number] Oral 480 118 Output: Urine 1075 900 525 Uretheral (Kenny) 900 Other: Voiding Method Indwelling Catheter Urinal - Labs CBC & Chem 7: 01/31/22 03:44 02/01/22 07:01 Labs: Abnormal Lab Results - Last 24 Hours (Table) 01/31/22 01/31/22 01/31/22 Range/Units 11:46 16:50 19:34 BUN (9-20) mg/dL Glucose (74-99) mg/dL POC Glucose (mg/dL) 181 H 136 H 237 H (70-110) mg/dL 02/01/22 02/01/22 Range/Units 05:50 07:01 BUN 57 H (9-20) mg/dL Glucose 152 H (74-99) mg/dL POC Glucose (mg/dL) 147 H (70-110) mg/dL Microbiology - Last 24 Hours (Table) 01/30/22 16:08 Blood Culture - Preliminary Blood No Growth after 24 hours Assessment and Plan Plan: Assessment: 1. Acute kidney injury secondary to ATN secondary to infection and further worsened with the use of losartan and diuretic. Also component of urinary retention. Renal function better. Creatinine 1.19 today. No hydronephrosis noted on uls. 2. Chronic kidney disease stage IIIa with baseline creatinine near 1.3-1.4 secondary to nephrosclerosis and diabetic kidney disease. 3. Acute hypoxic respiratory failure. 4. Influenza B infection. 5. Diabetes mellitus. 6. Metabolic acidosis secondary to acute kidney injury and lactic acidosis. Resolved. 7. Hyponatremia secondary to acute kidney injury. Improved. Plan: Off IV fluids. Add oral Lasix 20 mg once daily. Encouraged oral intake. Hold losartan for systolic blood pressure less than 120. Avoid nephrotoxins. Continue to monitor renal function and urine output.
[2022-02-01] MEDS: FUROSEMIDE 20 MG TAB PO SCH (10:56)
[2022-02-01] MEDS: AZITHROMYCIN 500 MG in SODIUM CHLORIDE 0.9% 250 ML IVPB SCH (10:57)
[2022-02-01 11:48] LABS: Glucose,Whole Blood 244 mg/dL (70-110)
--- NOTE | 2022-02-01 13:21 | P.PN ---
Subjective Progress Note Date: 01/31/22 H&P Date: 01/30/22 Chief Complaint: Pneumonia shortness of breath This is a 81-year-old white male well-known to our practice with a long-standing history of COPD chronic hypoxic respiratory failure maintained on oxygen at home patient follows with Dr. Caro and Dr. Daokta Bills for underlying COPD was seen in the emergency room with 2 week history of nonproductive cough shortness of breath patient presented in significant respiratory distress when he presented to the emergency room complaining of right-sided flank pain denies chest pain chest x-ray reveals right lower lobe pneumonia bilateral screening came back as positive influenza COVID-19 PCR was negative patient had leukocytosis WBC of 11.3 hemoglobin 13.1 ABG on admission 70% FiO2 a pO2 of 111 and a pCO2 of 38 pH was 7.3 patient has been on IPAP at home and currently has acute kidney injury with a BUNs of 71 creatinine 2.7 blood culture was 364 lactic acid was elevated and pro-calcitonin was elevated 01/31/2022 Maintained on gentle IV fluid hydration, Tamiflu, antibiotics, nebulized bronchodilators. Lactic acid down to 1.5, losartan dose decreased with renal function improving, creatinine down to 1.66. Maintaining O2 sats in the 90s on 10 L high flow nasal cannula. Afebrile, WBC 15.9. Hemoglobin 11.8, electrolytes within normal limits. Objective - Vital Signs Vital signs: Vital Signs Temp 97.7 F 01/31/22 12:00 Pulse 88 01/31/22 17:04 Resp 18 01/31/22 17:04 BP 137/87 01/31/22 17:04 Pulse Ox 95 01/31/22 18:26 FiO2 70 01/30/22 01:00 Intake & Output 01/31/22 01/31/22 02/01/22 06:59 18:59 06:59 Intake Total 480 Output Total 945 1075 Balance -945 -595 Intake: Oral 480 Output: Urine 945 1075 Uretheral (Kenny) 220 Other: Voiding Method Urinal Indwelling Catheter - Exam General: [Patient awake, alert and oriented times 3. no acute distress.] HEENT: [PERRL. EOMI. No pharyngeal erythema or exudate.] Neck: Supple, no JVD Cardiac: [Heart regular in rate and rhythm. No S3. No S4. No clicks, rubs. No murmur.] Lungs: Bibasilar crackles Abdomen: Soft, [No mass. No organomegaly. Bowel sounds presnt and normoactive in all 4 quadrants.] Extremes: [No edema no cyanosis no claudication normal pulses] Skin: [Warm and dry, No rash.] Neurologic: CN II - XII grossly intact.] - Labs CBC & Chem 7: 01/31/22 03:44 02/01/22 07:01 Labs: Abnormal Lab Results - Last 24 Hours (Table) 01/30/22 01/30/22 01/30/22 Range/Units 18:56 19:41 20:56 WBC (3.8-10.6) k/uL RBC (4.30-5.90) m/uL Hgb (13.0-17.5) gm/dL Hct (39.0-53.0) % MCHC (31.0-37.0) g/dL Neutrophils # (1.3-7.7) k/uL Lymphocytes # (1.0-4.8) k/uL Sodium (137-145) mmol/L BUN (9-20) mg/dL Creatinine (0.66-1.25) mg/dL Glucose (74-99) mg/dL POC Glucose (mg/dL) 279 H (70-110) mg/dL Plasma Lactic Acid Moses 2.9 H* (0.7-2.0) mmol/L Urine Protein Trace H (Negative) Urine Glucose (UA) 4+ H (Negative) Urine Blood Moderate H (Negative) Urine RBC 26 H (0-5) /hpf Urine WBC 8 H (0-5) /hpf Urine Bacteria Rare H (None) /hpf Urine Mucus Rare H (None) /hpf 01/30/22 01/31/22 01/31/22 Range/Units 21:51 00:13 03:44 WBC 15.9 H (3.8-10.6) k/uL RBC 3.91 L (4.30-5.90) m/uL Hgb 11.8 L (13.0-17.5) gm/dL Hct 38.5 L (39.0-53.0) % MCHC 30.7 L (31.0-37.0) g/dL Neutrophils # 14.4 H (1.3-7.7) k/uL Lymphocytes # 0.5 L (1.0-4.8) k/uL Sodium (137-145) mmol/L BUN (9-20) mg/dL Creatinine (0.66-1.25) mg/dL Glucose (74-99) mg/dL POC Glucose (mg/dL) (70-110) mg/dL Plasma Lactic Acid Moses 2.5 H* 2.2 H* (0.7-2.0) mmol/L Urine Protein (Negative) Urine Glucose (UA) (Negative) Urine Blood (Negative) Urine RBC (0-5) /hpf Urine WBC (0-5) /hpf Urine Bacteria (None) /hpf Urine Mucus (None) /hpf 01/31/22 01/31/22 01/31/22 Range/Units 03:44 05:52 11:46 WBC (3.8-10.6) k/uL RBC (4.30-5.90) m/uL Hgb (13.0-17.5) gm/dL Hct (39.0-53.0) % MCHC (31.0-37.0) g/dL Neutrophils # (1.3-7.7) k/uL Lymphocytes # (1.0-4.8) k/uL Sodium 136 L (137-145) mmol/L BUN 71 H (9-20) mg/dL Creatinine 1.66 H (0.66-1.25) mg/dL Glucose 151 H (74-99) mg/dL POC Glucose (mg/dL) 156 H 181 H (70-110) mg/dL Plasma Lactic Acid Moess (0.7-2.0) mmol/L Urine Protein (Negative) Urine Glucose (UA) (Negative) Urine Blood (Negative) Urine RBC (0-5) /hpf Urine WBC (0-5) /hpf Urine Bacteria (None) /hpf Urine Mucus (None) /hpf 01/31/22 Range/Units 16:50 WBC (3.8-10.6) k/uL RBC (4.30-5.90) m/uL Hgb (13.0-17.5) gm/dL Hct (39.0-53.0) % MCHC (31.0-37.0) g/dL Neutrophils # (1.3-7.7) k/uL Lymphocytes # (1.0-4.8) k/uL Sodium (137-145) mmol/L BUN (9-20) mg/dL Creatinine (0.66-1.25) mg/dL Glucose (74-99) mg/dL POC Glucose (mg/dL) 136 H (70-110) mg/dL Plasma Lactic Acid Moses (0.7-2.0) mmol/L Urine Protein (Negative) Urine Glucose (UA) (Negative) Urine Blood (Negative) Urine RBC (0-5) /hpf Urine WBC (0-5) /hpf Urine Bacteria (None) /hpf Urine Mucus (None) /hpf Microbiology - Last 24 Hours (Table) 01/30/22 16:08 Blood Culture - Preliminary Blood No Growth after 24 hours Assessment and Plan Assessment: (1) Sepsis Current Visit: Yes Status: Acute Code(s): A41.9 - SEPSIS, UNSPECIFIED ORGANISM SNOMED Code(s): 36737714 (2) CAP (community acquired pneumonia) Current Visit: Yes Status: Acute Code(s): J18.9 - PNEUMONIA, UNSPECIFIED ORGANISM SNOMED Code(s): 010656532 (3) Influenza B Current Visit: Yes Status: Acute Code(s): J10.1 - FLU DUE TO OTH IDENT INFLUENZA VIRUS W OTH RESP MANIFEST SNOMED Code(s): 91438249 (4) Lactic acidosis Current Visit: Yes Status: Acute Code(s): E87.2 - ACIDOSIS SNOMED Code(s): 15804926 (5) Hyperlipidemia Current Visit: No Status: Acute Code(s): E78.5 - HYPERLIPIDEMIA, UNSPECIFIED SNOMED Code(s): 02002532 (6) Pneumonia Current Visit: No Status: Acute Code(s): J18.9 - PNEUMONIA, UNSPECIFIED ORGANISM SNOMED Code(s): 863296131 (7) Diabetes Current Visit: No Status: Chronic Code(s): E11.9 - TYPE 2 DIABETES MELLITUS WITHOUT COMPLICATIONS SNOMED Code(s): 00934288 (8) Hypertension Current Visit: No Status: Chronic Code(s): I10 - ESSENTIAL (PRIMARY) HYPERTENSION SNOMED Code(s): 27775086 (9) urinary retention, requiring Kenny catheter Plan: Continue on current medication regime, monitoring and symptomatic treatment. Maintain Tamiflu, nebulized bronchodilators, Rocephin, Zithromax. Titrate O2 as per established parameters per pulmonary.
[2022-02-01 13:23] LABS: Albumin 2.7 g/dL (3.5-5.0); Total Bilirubin 0.3 mg/dL (0.2-1.3)
--- NOTE | 2022-02-01 13:30 | P.PN ---
Subjective Progress Note Date: 02/01/22 H&P Date: 01/30/22 Chief Complaint: Pneumonia shortness of breath This is a 81-year-old white male well-known to our practice with a long-standing history of COPD chronic hypoxic respiratory failure maintained on oxygen at home patient follows with Dr. Caro and Dr. Dakota Bills for underlying COPD was seen in the emergency room with 2 week history of nonproductive cough shortness of breath patient presented in significant respiratory distress when he presented to the emergency room complaining of right-sided flank pain denies chest pain chest x-ray reveals right lower lobe pneumonia bilateral screening came back as positive influenza COVID-19 PCR was negative patient had leukocytosis WBC of 11.3 hemoglobin 13.1 ABG on admission 70% FiO2 a pO2 of 111 and a pCO2 of 38 pH was 7.3 patient has been on IPAP at home and currently has acute kidney injury with a BUNs of 71 creatinine 2.7 blood culture was 364 lactic acid was elevated and pro-calcitonin was elevated 01/31/2022 Maintained on gentle IV fluid hydration, Tamiflu, antibiotics, nebulized bronchodilators. Lactic acid down to 1.5, losartan dose decreased with renal function improving, creatinine down to 1.66. Maintaining O2 sats in the 90s on 10 L high flow nasal cannula. Afebrile, WBC 15.9. Hemoglobin 11.8, electrolytes within normal limits. 02/01/2022 continues on 02 decreased further down to 6 L nasal cannula maintaining O2 sats in the 90s. Diet intake 25%. Hyperglycemic. Denies chest pain, palpitations. Afebrile. Continues on nebulized bronchodilators, Rocephin, Zithromax, Tamiflu. Objective - Vital Signs Vital signs: Vital Signs Temp 98.3 F 02/01/22 04:45 Pulse 82 02/01/22 11:23 Resp 16 02/01/22 11:05 BP 112/70 02/01/22 11:05 Pulse Ox 91 L 02/01/22 11:05 FiO2 70 01/30/22 01:00 Intake & Output 01/31/22 02/01/22 02/01/22 18:59 06:59 18:59 Intake Total 480 300 118 Output Total 1075 900 525 Balance -595 -600 -407 Intake: Intake, IV Titration 300 Amount Sodium Chloride 0.9% 1, 300 000 ml @ 50 mls/hr IV . Q20H [facility] Rx#:[id number] Oral 480 118 Output: Urine 1075 900 525 Uretheral (Kenny) 900 Other: Voiding Method Indwelling Catheter Urinal Urinal - Exam General: alert and oriented times 3. no acute distress.] HEENT: [PERRL. EOMI. No pharyngeal erythema or exudate.] Neck: Supple, no JVD Cardiac: [Heart regular in rate and rhythm. No S3. No S4. No clicks, rubs. No murmur. Lungs: Bibasilar crackles Abdomen: Soft, [No mass. No organomegaly. Bowel sounds presnt and normoactive in all 4 quadrants.] Extremes: [No edema no cyanosis no claudication normal pulses] Skin: [Warm and dry, No rash.] Neurologic: CN II - XII grossly intact.] - Labs CBC & Chem 7: 01/31/22 03:44 02/01/22 07:01 Labs: Abnormal Lab Results - Last 24 Hours (Table) 01/31/22 01/31/22 02/01/22 Range/Units 16:50 19:34 05:50 BUN (9-20) mg/dL Glucose (74-99) mg/dL POC Glucose (mg/dL) 136 H 237 H 147 H (70-110) mg/dL 02/01/22 02/01/22 Range/Units 07:01 11:46 BUN 57 H (9-20) mg/dL Glucose 152 H (74-99) mg/dL POC Glucose (mg/dL) 244 H (70-110) mg/dL Microbiology - Last 24 Hours (Table) 01/30/22 16:08 Blood Culture - Preliminary Blood No Growth after 24 hours Assessment and Plan Assessment: (1) Sepsis Current Visit: Yes Status: Acute Code(s): A41.9 - SEPSIS, UNSPECIFIED ORGANISM SNOMED Code(s): 47879933 (2) CAP (community acquired pneumonia) Current Visit: Yes Status: Acute Code(s): J18.9 - PNEUMONIA, UNSPECIFIED ORGANISM SNOMED Code(s): 825606229 (3) Influenza B Current Visit: Yes Status: Acute Code(s): J10.1 - FLU DUE TO OTH IDENT INFLUENZA VIRUS W OTH RESP MANIFEST SNOMED Code(s): 55877878 (4) Lactic acidosis Current Visit: Yes Status: Acute Code(s): E87.2 - ACIDOSIS SNOMED Code(s): 41199587 (5) Hyperlipidemia Current Visit: No Status: Acute Code(s): E78.5 - HYPERLIPIDEMIA, UNSPECIFIED SNOMED Code(s): 36706890 (6) Pneumonia Current Visit: No Status: Acute Code(s): J18.9 - PNEUMONIA, UNSPECIFIED ORGANISM SNOMED Code(s): 800732137 (7) Diabetes, hyperglycemic Current Visit: No Status: Chronic Code(s): E11.9 - TYPE 2 DIABETES MELLITUS WITHOUT COMPLICATIONS SNOMED Code(s): 60207015 (8) Hypertension Current Visit: No Status: Chronic Code(s): I10 - ESSENTIAL (PRIMARY) HYPERTENSION SNOMED Code(s): 45534400 (9) urinary retention, requiring Kenny catheter Plan: Continue on current medication regime, monitoring and symptomatic treatment. Oral Lasix initiated, IV fluids DC'd. Continue on Flomax, Tamiflu, nebulized bronchodilators, Rocephin, Zithromax. Continue Titrating O2 as tolerated. Levemir added to med regimen with close monitoring of Accu-Cheks. A1c ordered.[id number] The impression and plan of care has been dictated as directed. : I performed a history and examination of this patient, discussed the same with the dictator. I agree with the dictator's note ,documented as a scribe. Any additional findings or plans will be noted.
[2022-02-01 16:28] LABS: Glucose,Whole Blood 182 mg/dL (70-110)
--- NOTE | 2022-02-01 16:35 | P.PN ---
Subjective Progress Note Date: 02/01/22 Principal diagnosis: Acute right lower lobe pneumonia This is a 81-year-old white male with history of COPD, chronic hypoxic respiratory failure, maintained on oxygen at home, patient follows up with Dr. Aaron lopez for his underlying COPD. Patient was seen in the ER this morning with almost 2 weeks history of nonproductive cough, shortness of breath, wheezing, patient was in significant respiratory distress upon arrival to the ER, he was also complaining of right-sided flank pain. Patient denied any sick contacts. Denied any chest pain. Chest x-ray question a right lower lobe pneumonia is viral screening came back positive for influenza B. COVID-19 PCR was negative. Patient was noted to have a bit of leukocytosis with WBC count of 11.3 hemoglobin 13.1. ABG on 70% FiO2 showed a pO2 of 111 pCO2 38 pH of 7.3 to apparently this was done on BiPAP at 70% patient was also noted to have acute kidney injury with a BUN of 71 creatinine 2.70 and his blood sugar was 364 patient was admitted and this consult was initiated. Patient is now receiving Rocephin and Zithromax is also receiving bronchodilators in the form of DuoNeb and Symbicort. He is also on Tamiflu, and his IV fluid is at 75 mL per hour patient was seen by nephrology in consultation for his acute kidney injury renal ultrasound is pending. Reevaluated today on 01/31/22, patient is on 10 L high flow nasal cannula O2 sats is 94%, he is afebrile with a temp of 97 7 blood pressure is 123/70 heart rate is 82, patient feels better today compared to how he felt yesterday. Remains on Tamiflu remains on antibiotics and he remains on bronchodilators. Definite improvement compared to yesterday, nonetheless remains relatively ill. WBC count today is 15.9 hemoglobin 11.80 left lites are normal BUN is 71 creatinine 1.66, improving compared to admission creatinine Reevaluated today on 02/01/22, patient remains on6 L high flow nasal cannula, doing well, however his chest x-ray yesterday is showing worsening of right lower lobe pneumonia and now he is developing a pleural effusion. Clinically the patient is feeling great, I believe he is developing a parapneumonic pleural effusion which is too small to consider thoracentesis but I will repeat his chest x-ray and ultrasound in the morning and if the effusion is large enough may consider thoracentesis. In the meantime the patient is doing well clinically and feeling better. Objective - Vital Signs Vital signs: Vital Signs Temp 98.3 F 02/01/22 04:45 Pulse 78 02/01/22 15:19 Resp 16 02/01/22 11:05 BP 112/70 02/01/22 11:05 Pulse Ox 91 L 02/01/22 11:05 FiO2 70 01/30/22 01:00 Intake & Output 01/31/22 02/01/22 02/01/22 18:59 06:59 18:59 Intake Total 480 300 118 Output Total 1075 900 525 Balance -321 -600 -407 Intake: Intake, IV Titration 300 Amount Sodium Chloride 0.9% 1, 300 000 ml @ 50 mls/hr IV . Q20H [facility] Rx#:[id number] Oral 480 118 Output: Urine 1075 900 525 Uretheral (Kenny) 900 Other: Voiding Method Indwelling Catheter Urinal Urinal - Exam Physical Exam: Revealed a 81-year-old white male in no distress, on6 L high flow nasal cannula Head: Atraumatic, normocephalic HEENT:[Neck is supple.] [No neck masses.] [No thyromegaly.] [No JVD.] Chest: [Minimal crackles at the right base no rhonchi no wheezes Cardiac Exam: [Normal S1 and S2, no S3 gallop, no murmur.] Abdomen: [Soft, nontender, no megaly, no rebound, no guarding, normal bowel sounds.] Extremities: [No clubbing, no edema, no cyanosis.] Neurological Exam: [No focal neurologic deficit.] Alert and oriented 3 Psychiatric: Normal mood affect and normal mental status examination. Skin: No rashes - Labs CBC & Chem 7: 01/31/22 03:44 02/01/22 07:01 Labs: Abnormal Lab Results - Last 24 Hours (Table) 01/31/22 01/31/22 02/01/22 Range/Units 16:50 19:34 05:50 BUN (9-20) mg/dL Glucose (74-99) mg/dL POC Glucose (mg/dL) 136 H 237 H 147 H (70-110) mg/dL AST (17-59) U/L ALT (4-49) U/L Total Protein (6.3-8.2) g/dL Albumin (3.5-5.0) g/dL 02/01/22 02/01/22 02/01/22 Range/Units 07:01 11:46 16:27 BUN 57 H (9-20) mg/dL Glucose 152 H (74-99) mg/dL POC Glucose (mg/dL) 244 H 182 H (70-110) mg/dL AST 100 H (17-59) U/L ALT 70 H (4-49) U/L Total Protein 6.0 L (6.3-8.2) g/dL Albumin 2.7 L (3.5-5.0) g/dL Microbiology - Last 24 Hours (Table) 01/30/22 16:08 Blood Culture - Preliminary Blood No Growth after 24 hours Assessment and Plan Assessment: Impression: Acute community-acquired pneumonia, mostly involving the right lower lobe suspect right-sided parapneumonic effusion, small Influenza B infection Acute exacerbation of COPD Acute on chronic hypoxic respiratory failure secondary to above Type 2 diabetes Dyslipidemia Benign essential hypertension Recommendation:continue oxygen and antibiotics and titrate oxygen accordingly ultrasound of the chest in a.m. Continue Tamiflu Continue Rocephin and Zithromax Continue bronchodilators, including Symbicort Pro calcitonin level was noted to be quite high at 12.80 consider thoracentesis if pleural effusion is large We will continue to follow. Time with Patient: Less than 30
[2022-02-01] MEDS: INSULIN DETEMIR (LEVEMIR) 100 UNIT/ML SYR SQ SCH (17:05)
[2022-02-01 20:35] LABS: Glucose,Whole Blood 221 mg/dL (70-110)
[2022-02-01] MEDS: ATORVASTATIN 40 MG TAB PO SCH (21:50)
[2022-02-02] MEDS: SODIUM CHLORIDE 0.9% 1,000 ML IV SCH (02:52)
[2022-02-02 06:11] LABS: Glucose,Whole Blood 126 mg/dL (70-110)
[2022-02-02] MEDS: INSULIN DETEMIR (LEVEMIR) 100 UNIT/ML SYR SQ SCH (06:55)
[2022-02-02] MEDS: INSULIN ASPART (NovoLOG) 100 UNIT/ML VIAL SQ SCH ×4 (06:55→21:21)
--- NOTE | 2022-02-02 07:14 | XR ---
EXAMINATION TYPE: XR chest 1V portable DATE OF EXAM: 02/02/2022 COMPARISON: 01/31/2022 INDICATION: Right pleural effusion TECHNIQUE: Single frontal view of the chest is obtained. FINDINGS: The heart size is normal. The pulmonary vasculature is normal. There is increasing opacification of the right lung. There is deviation of the trachea towards the ri ght. Left lung appears clear IMPRESSION: 1. Increasing right pleural effusion. Some underlying atelectasis is likely present. Follow-up recomm ended
--- NOTE | 2022-02-02 07:16 | US ---
EXAMINATION TYPE: US chest DATE OF EXAM: 02/02/2022 COMPARISON: CXR CLINICAL HISTORY: Right pleural effusion. Right Pleural effusion TECHNIQUE: Targeted ultrasound of the posterior lower right hemithorax EXAM MEASUREMENTS: Right Pleural Effusion pocket size: 12.1 cm Right skin surface to fluid distance: 3.6 cm Right side marked for possible thoracentesis outside the dept. Pulmonologists are able to review the images in the patient?s EMR. IMPRESSIONS: 1. Right pleural effusion. This has some internal septations and may be loculated.
[2022-02-02] MEDS: IPRATROPIUM-ALBUTEROL 3 ML NEB INHALATION SCH ×4 (07:43→21:24)
[2022-02-02] MEDS: SYMBICORT 160-4.5 MCG INHALER INHALATION SCH ×4 (07:43→20:37)
[2022-02-02 08:21] LABS: Calcium 9.3 mg/dL (8.4-10.2); Potassium 4.6 mmol/L (3.5-5.1)
[2022-02-02] MEDS: AZITHROMYCIN 500 MG in SODIUM CHLORIDE 0.9% 250 ML IVPB SCH (08:58)
[2022-02-02] MEDS: LOSARTAN 50 MG TAB PO SCH (09:01)
[2022-02-02] MEDS: METOPROLOL TARTRATE 25 MG TAB PO SCH ×2 (09:01→21:48)
[2022-02-02] MEDS: MAGNESIUM OXIDE 400 MG TAB PO SCH ×2 (09:01→21:47)
[2022-02-02] MEDS: LIDOCAINE 5% PATCH TOPICAL SCH (09:02)
[2022-02-02] MEDS: TAMSULOSIN 0.4 MG CAP.ER.24H PO SCH (09:02)
[2022-02-02] MEDS: FUROSEMIDE 20 MG TAB PO SCH (09:02)
[2022-02-02] MEDS: FLUTICASONE 50MCG/SPRAY NASAL 16GM EA NOSTRIL SCH ×2 (09:02→21:47)
[2022-02-02] MEDS: CHOLECALCIFEROL 25 MCG (1000 IU) TABLET PO SCH (09:02)
[2022-02-02] MEDS: allopurinoL 100 MG TAB PO SCH (09:02)
[2022-02-02] MEDS: OSELTAMIVIR 60 MG/10 ML ORAL SYRINGE PO SCH ×2 (10:37→21:47)
[2022-02-02 10:38] LABS: Total Protein 5.7 g/dL (6.3-8.2)
--- NOTE | 2022-02-02 10:39 | P.PN ---
Subjective Patient is seen in follow-up for acute kidney injury on chronic kidney disease. Renal function stable. Has a Kenny catheter for urinary retention. Nonoliguric. Oral intake good. Blood pressure stable. On oral Lasix. No active complaints. Vital signs are stable. General: Awake. No acute distress. HEENT: Head exam is unremarkable. On nasal cannula. LUNGS: Breath sounds decreased. HEART: Rate and Rhythm are regular. ABDOMEN: Soft, no distention. EXTREMITITES: No edema. Objective - Vital Signs Vital signs: Vital Signs Temp 98.2 F 02/02/22 04:15 Pulse 108 H 02/02/22 08:00 Resp 16 02/02/22 08:00 BP 122/77 02/02/22 08:00 Pulse Ox 94 L 02/02/22 08:00 FiO2 70 01/30/22 01:00 Intake & Output 02/01/22 02/02/22 02/02/22 18:59 06:59 18:59 Intake Total 758 Output Total 525 2024 Balance 233 -202 Intake: Intake, IV Titration 400 Amount Azithromycin 500 mg In 400 Sodium Chloride 0.9% 250 ml @ 250 mls/hr IVPB DAILY [facility] Rx#:[id number] Oral 358 Output: Urine 525 2024 Other: Voiding Method Urinal Urinal - Labs CBC & Chem 7: 01/31/22 03:44 02/02/22 07:31 Labs: Abnormal Lab Results - Last 24 Hours (Table) 02/01/22 02/01/22 02/01/22 Range/Units 07:01 11:46 14:30 BUN (9-20) mg/dL Glucose (74-99) mg/dL POC Glucose (mg/dL) 244 H (70-110) mg/dL Hemoglobin A1c 7.5 H (0.0-6.0) % AST 100 H (17-59) U/L ALT 70 H (4-49) U/L Total Protein 6.0 L (6.3-8.2) g/dL Albumin 2.7 L (3.5-5.0) g/dL 02/01/22 02/01/22 02/02/22 Range/Units 16:27 20:30 06:10 BUN (9-20) mg/dL Glucose (74-99) mg/dL POC Glucose (mg/dL) 182 H 221 H 126 H (70-110) mg/dL Hemoglobin A1c (0.0-6.0) % AST (17-59) U/L ALT (4-49) U/L Total Protein (6.3-8.2) g/dL Albumin (3.5-5.0) g/dL 02/02/22 Range/Units 07:31 BUN 47 H (9-20) mg/dL Glucose 128 H (74-99) mg/dL POC Glucose (mg/dL) (70-110) mg/dL Hemoglobin A1c (0.0-6.0) % AST (17-59) U/L ALT (4-49) U/L Total Protein (6.3-8.2) g/dL Albumin (3.5-5.0) g/dL Microbiology - Last 24 Hours (Table) 01/30/22 16:08 Blood Culture - Preliminary Blood No Growth after 48 hours Assessment and Plan Plan: Assessment: 1. Acute kidney injury secondary to ATN secondary to infection and further worsened with the use of losartan and diuretic. Also component of urinary retention. Renal function improved. Creatinine stable at 1.21 today. No hydronephrosis noted on uls. 2. Chronic kidney disease stage IIIa with baseline creatinine near 1.3-1.4 secondary to nephrosclerosis and diabetic kidney disease. 3. Acute hypoxic respiratory failure. 4. Influenza B infection. 5. Diabetes mellitus. 6. Metabolic acidosis secondary to acute kidney injury and lactic acidosis. Resolved. 7. Hyponatremia secondary to acute kidney injury. Improved. Plan: Maintain oral Lasix. Encouraged oral intake. Hold losartan for systolic blood pressure less than 120. Avoid nephrotoxins. Continue to monitor renal function and urine output. Trial of void today. Monitor bladder scans closely and reinsert Kenny catheter if has persistent retention.
--- NOTE | 2022-02-02 10:40 | XR ---
EXAMINATION TYPE: XR chest 1V portable DATE OF EXAM: 02/02/2022 COMPARISON: 02/02/2022 earlier exam INDICATION: Postthoracentesis TECHNIQUE: Single frontal view of the chest is obtained. FINDINGS: The heart size is normal. The pulmonary vasculature is normal. There is diminished right pleural effusion. There is improved aeration. Some residual atelectasis adj acent to the pleural effusion is present. No pneumothorax is evident. IMPRESSION: 1. No pneumothorax postthoracentesis. Diminished moderate right pleural effusion with adjacent atelec tasis remains in the right base.
--- NOTE | 2022-02-02 10:42 | US ---
EXAMINATION TYPE: US chest DATE OF EXAM: 02/02/2022 COMPARISON: US CLINICAL HISTORY: Right pleural effusion. Confirm right pleural effusion TECHNIQUE: Targeted ultrasound of the posterior lower right hemithorax Dr. Duncan present in room to confirm right pleural effusion at prior marking site done earlier in the day IMPRESSIONS: 1. Right pleural effusion
[2022-02-02 11:46] LABS: Glucose,Whole Blood 115 mg/dL (70-110)
--- NOTE | 2022-02-02 14:15 | P.PN ---
Subjective Progress Note Date: 02/02/22 Principal diagnosis: Acute right lower lobe pneumonia This is a 81-year-old white male with history of COPD, chronic hypoxic respiratory failure, maintained on oxygen at home, patient follows up with Dr. Aaron lopez for his underlying COPD. Patient was seen in the ER this morning with almost 2 weeks history of nonproductive cough, shortness of breath, wheezing, patient was in significant respiratory distress upon arrival to the ER, he was also complaining of right-sided flank pain. Patient denied any sick contacts. Denied any chest pain. Chest x-ray question a right lower lobe pneumonia is viral screening came back positive for influenza B. COVID-19 PCR was negative. Patient was noted to have a bit of leukocytosis with WBC count of 11.3 hemoglobin 13.1. ABG on 70% FiO2 showed a pO2 of 111 pCO2 38 pH of 7.3 to apparently this was done on BiPAP at 70% patient was also noted to have acute kidney injury with a BUN of 71 creatinine 2.70 and his blood sugar was 364 patient was admitted and this consult was initiated. Patient is now receiving Rocephin and Zithromax is also receiving bronchodilators in the form of DuoNeb and Symbicort. He is also on Tamiflu, and his IV fluid is at 75 mL per hour patient was seen by nephrology in consultation for his acute kidney injury renal ultrasound is pending. Reevaluated today on 01/31/22, patient is on 10 L high flow nasal cannula O2 sats is 94%, he is afebrile with a temp of 97 7 blood pressure is 123/70 heart rate is 82, patient feels better today compared to how he felt yesterday. Remains on Tamiflu remains on antibiotics and he remains on bronchodilators. Definite improvement compared to yesterday, nonetheless remains relatively ill. WBC count today is 15.9 hemoglobin 11.80 left lites are normal BUN is 71 creatinine 1.66, improving compared to admission creatinine Reevaluated today on 02/01/22, patient remains on6 L high flow nasal cannula, doing well, however his chest x-ray yesterday is showing worsening of right lower lobe pneumonia and now he is developing a pleural effusion. Clinically the patient is feeling great, I believe he is developing a parapneumonic pleural effusion which is too small to consider thoracentesis but I will repeat his chest x-ray and ultrasound in the morning and if the effusion is large enough may consider thoracentesis. In the meantime the patient is doing well clinically and feeling better. Reevaluated today on 02/02/22, patient seems to be doing fairly well, no major issues over the last 24 hours, chest x-ray and ultrasound are showing worsening of the pneumonia and the pleural effusion, hence I went ahead and recommended a diagnostic and therapeutic right-sided pleural effusion thoracentesis. This was done, and I was able to drain 700 mL of fluid from the right pleural space, and fluid was sent for different diagnostic studies. Patient remains on antibiotics for right lower lobe pneumonia and he received a full course of Tamiflu for his influenza type B infection as noted by positive PCR Objective - Vital Signs Vital signs: Vital Signs Temp 98.2 F 02/02/22 04:15 Pulse 73 02/02/22 12:00 Resp 16 02/02/22 12:00 BP 108/56 02/02/22 12:00 Pulse Ox 95 02/02/22 12:00 FiO2 70 01/30/22 01:00 Intake & Output 02/01/22 02/02/22 02/02/22 18:59 06:59 18:59 Intake Total 758 Output Total 525 5 Balance 233 -2024 Intake: Intake, IV Titration 400 Amount Azithromycin 500 mg In 400 Sodium Chloride 0.9% 250 ml @ 250 mls/hr IVPB DAILY [facility] Rx#:[id number] Oral 358 Output: Urine 525 2024 Other: Voiding Method Urinal Urinal Urinal - Exam Physical Exam: Revealed a 81-year-old white male in no distress, remains on 6 L nasal cannula HEENT:[Neck is supple.] [No neck masses.] [No thyromegaly.] [No JVD.] Chest: [Minimal crackles at the right base no rhonchi no wheezes Cardiac Exam: [Normal S1 and S2, no S3 gallop, no murmur.] Abdomen: [Soft, nontender, no megaly, no rebound, no guarding, normal bowel sounds.] Extremities: [No clubbing, no edema, no cyanosis.] Neurological Exam: [No focal neurologic deficit.] Alert and oriented 3 Psychiatric: Normal mood affect and normal mental status examination. Skin: No rashes - Labs CBC & Chem 7: 01/31/22 03:44 02/02/22 07:31 Labs: Abnormal Lab Results - Last 24 Hours (Table) 02/01/22 02/01/22 02/01/22 Range/Units 14:30 16:27 20:30 BUN (9-20) mg/dL Glucose (74-99) mg/dL POC Glucose (mg/dL) 182 H 221 H (70-110) mg/dL Hemoglobin A1c 7.5 H (0.0-6.0) % Total Protein (6.3-8.2) g/dL 02/02/22 02/02/22 02/02/22 Range/Units 06:10 07:31 07:31 BUN 47 H (9-20) mg/dL Glucose 128 H (74-99) mg/dL POC Glucose (mg/dL) 126 H (70-110) mg/dL Hemoglobin A1c (0.0-6.0) % Total Protein 5.7 L (6.3-8.2) g/dL 02/02/22 Range/Units 11:45 BUN (9-20) mg/dL Glucose (74-99) mg/dL POC Glucose (mg/dL) 115 H (70-110) mg/dL Hemoglobin A1c (0.0-6.0) % Total Protein (6.3-8.2) g/dL Microbiology - Last 24 Hours (Table) 01/30/22 16:08 Blood Culture - Preliminary Blood No Growth after 48 hours Assessment and Plan Assessment: Impression: Acute community-acquired pneumonia, mostly involving the right lower lobe suspect right-sided parapneumonic effusion, status post thoracentesis today and 700 mL of fluid drained sent for diagnostic studies Influenza B infection Acute exacerbation of COPD Acute on chronic hypoxic respiratory failure secondary to above Type 2 diabetes Dyslipidemia Benign essential hypertension Recommendation:continue oxygen and antibiotics and titrate oxygen accordingly Await the results of the pleural effusion Continue Tamiflu Continue Rocephin and Zithromax Continue bronchodilators, including Symbicort We will continue to follow. Time with Patient: Less than 30
--- NOTE | 2022-02-02 14:51 | P.PN ---
Subjective Progress Note Date: 02/02/22 H&P Date: 01/30/22 Chief Complaint: Pneumonia shortness of breath This is a 81-year-old white male well-known to our practice with a long-standing history of COPD chronic hypoxic respiratory failure maintained on oxygen at home patient follows with Dr. Caro and Dr. Dakota Bills for underlying COPD was seen in the emergency room with 2 week history of nonproductive cough shortness of breath patient presented in significant respiratory distress when he presented to the emergency room complaining of right-sided flank pain denies chest pain chest x-ray reveals right lower lobe pneumonia bilateral screening came back as positive influenza COVID-19 PCR was negative patient had leukocytosis WBC of 11.3 hemoglobin 13.1 ABG on admission 70% FiO2 a pO2 of 111 and a pCO2 of 38 pH was 7.3 patient has been on IPAP at home and currently has acute kidney injury with a BUNs of 71 creatinine 2.7 blood culture was 364 lactic acid was elevated and pro-calcitonin was elevated 01/31/2022 Maintained on gentle IV fluid hydration, Tamiflu, antibiotics, nebulized bronchodilators. Lactic acid down to 1.5, losartan dose decreased with renal function improving, creatinine down to 1.66. Maintaining O2 sats in the 90s on 10 L high flow nasal cannula. Afebrile, WBC 15.9. Hemoglobin 11.8, electrolytes within normal limits. 02/01/2022 continues on 02 decreased further down to 6 L nasal cannula maintaining O2 sats in the 90s. Diet intake 25%. Hyperglycemic. Denies chest pain, palpitations. Afebrile. Continues on nebulized bronchodilators, Rocephin, Zithromax, Tamiflu. 02/02/2022 continues on Rocephin, Zithromax, nebulized bronchodilators, Tamiflu, maintaining O2 sats in the 90s on 6 L nasal cannula. Afebrile. BUN decreased to 47, creatinine 1.21. Chest ultrasound reporting right pleural effusion and marked for potential thoracentesis, 12.1 cm, possible loculated. Chest x-ray reported increasing right pleural effusion with some underlying atelectasis. Status post right thoracentesis, 700 ml pleural fluid drained, cytology/cultures pending. Tolerated procedure well. Levemir added to med regimen yesterday, blood sugars better controlled. A1c 7.5. Objective - Vital Signs Vital signs: Vital Signs Temp 98.2 F 02/02/22 04:15 Pulse 73 02/02/22 12:00 Resp 16 02/02/22 12:00 BP 108/56 02/02/22 12:00 Pulse Ox 95 02/02/22 12:00 FiO2 70 01/30/22 01:00 Intake & Output 02/01/22 02/02/22 02/02/22 18:59 06:59 18:59 Intake Total 758 Output Total 525 2024 Balance 233 -2024 Intake: Intake, IV Titration 400 Amount Azithromycin 500 mg In 400 Sodium Chloride 0.9% 250 ml @ 250 mls/hr IVPB DAILY [facility] Rx#:[id number] Oral 358 Output: Urine 525 2024 Other: Voiding Method Urinal Urinal Urinal - Exam General: alert and oriented times 3. no acute distress.] HEENT: [PERRL. EOMI. No pharyngeal erythema or exudate.] Neck: Supple, no JVD Cardiac: [Heart regular in rate and rhythm. No S3. No S4. No clicks, rubs. No murmur. Lungs: Fine right bibasilar crackles, no rhonchi or expiratory wheezing Abdomen: Soft, [No mass. No organomegaly. Bowel sounds presnt and normoactive in all 4 quadrants.] Extremes: [No edema no cyanosis no claudication normal pulses] Skin: [Warm and dry, No rash.] Neurologic: CN II - XII grossly intact.] - Labs CBC & Chem 7: 01/31/22 03:44 02/02/22 07:31 Labs: Abnormal Lab Results - Last 24 Hours (Table) 02/01/22 02/01/22 02/01/22 Range/Units 14:30 16:27 20:30 BUN (9-20) mg/dL Glucose (74-99) mg/dL POC Glucose (mg/dL) 182 H 221 H (70-110) mg/dL Hemoglobin A1c 7.5 H (0.0-6.0) % Total Protein (6.3-8.2) g/dL 02/02/22 02/02/22 02/02/22 Range/Units 06:10 07:31 07:31 BUN 47 H (9-20) mg/dL Glucose 128 H (74-99) mg/dL POC Glucose (mg/dL) 126 H (70-110) mg/dL Hemoglobin A1c (0.0-6.0) % Total Protein 5.7 L (6.3-8.2) g/dL 02/02/22 Range/Units 11:45 BUN (9-20) mg/dL Glucose (74-99) mg/dL POC Glucose (mg/dL) 115 H (70-110) mg/dL Hemoglobin A1c (0.0-6.0) % Total Protein (6.3-8.2) g/dL Microbiology - Last 24 Hours (Table) 01/30/22 16:08 Blood Culture - Preliminary Blood No Growth after 48 hours Assessment and Plan Assessment: (1) Sepsis Current Visit: Yes Status: Acute Code(s): A41.9 - SEPSIS, UNSPECIFIED ORGANISM SNOMED Code(s): 07680672 (2) CAP (community acquired pneumonia) Current Visit: Yes Status: Acute Code(s): J18.9 - PNEUMONIA, UNSPECIFIED ORGANISM SNOMED Code(s): 218302402 (3) Influenza B Current Visit: Yes Status: Acute Code(s): J10.1 - FLU DUE TO OTH IDENT INFLUENZA VIRUS W OTH RESP MANIFEST SNOMED Code(s): 92985286 (4) right pleural effusion, possible parapneumonic, status post thoracentesis, cytology/cultures pending (5) Hyperlipidemia Current Visit: No Status: Acute Code(s): E78.5 - HYPERLIPIDEMIA, UNSPECIFIED SNOMED Code(s): 69677973 (6) Pneumonia Current Visit: No Status: Acute Code(s): J18.9 - PNEUMONIA, UNSPECIFIED ORGANISM SNOMED Code(s): 134570156 (7) Diabetes, hyperglycemic. A1c 7.5. Further diabetic education outpatient in clinic at follow-up with PCP. Current Visit: No Status: Chronic Code(s): E11.9 - TYPE 2 DIABETES MELLITUS WITHOUT COMPLICATIONS SNOMED Code(s): 37308097 (8) Hypertension Current Visit: No Status: Chronic Code(s): I10 - ESSENTIAL (PRIMARY) HYPERTENSION SNOMED Code(s): 59383975 (9) urinary retention, requiring Kenny catheter Lactic acidosis,resolved Current Visit: Yes Status: Acute Code(s): E87.2 - ACIDOSIS SNOMED Code(s): 17957738 Plan: Continue on current medication regime, monitoring and symptomatic treatment. Maintain nebulized bronchodilators, Rocephin, Zithromax, Tamiflu, oral Lasix. Continue Titrating O2 as tolerated. Close monitoring of renal function, repeat labs ordered for tomorrow. Pleural cytology/cultures pending. The impression and plan of care has been dictated as directed. : I performed a history and examination of this patient, discussed the same with the dictator. I agree with the dictator's note ,documented as a scribe. Any additional findings or plans will be noted.
[2022-02-02 16:41] LABS: Glucose,Whole Blood 106 mg/dL (70-110)
[2022-02-02 18:45] LABS: Appearance,BF Cloudy
[2022-02-02 20:10] LABS: Glucose,Whole Blood 135 mg/dL (70-110)
[2022-02-02] MEDS: ATORVASTATIN 40 MG TAB PO SCH (21:47)
--- NOTE | 2022-02-02 22:07 | OP ---
OPERATIVE REPORT PROCEDURE PERFORMED: Right-sided thoracentesis. PREOPERATIVE DIAGNOSIS: Right lower lobe pneumonia and parapneumonic effusion. POSTOPERATIVE DIAGNOSIS: Right lower lobe pneumonia and parapneumonic effusion. ANESTHESIA USED: 2 mL of 1% lidocaine. DESCRIPTION OF PROCEDURE: The patient was placed in a sitting upright position, the area of the fluid was localized again with ultrasound at bedside, and it correlated to the 8th intercostal space and tip of the scapula. Again, the area was prepared in a sterile fashion, drapes were applied, and the area was locally anesthetized with 5 mL of 1% lidocaine. Then, a 24-gauge needle was inserted at the same site, advanced into the pleural space until the fluid was localized. Then a small tiny incision was made, a standard thoracentesis catheter and needle were used, advanced at the same site into the pleural space and as soon as the fluid was obtained, the catheter was advanced out of the needle into the pleural space, and the needle was pulled out of the pleural space. Freely flowing fluid was removed, thick millie colored fluid was removed from the right pleural space, roughly 700 mL of fluid was drained. The fluid was sent for different diagnostic studies. Procedure was well tolerated, no complications was noted post procedure. MMODL / IJN: [id number] /
[2022-02-03 06:59] LABS: Glucose,Whole Blood 134 mg/dL (70-110)
[2022-02-03] MEDS: INSULIN ASPART (NovoLOG) 100 UNIT/ML VIAL SQ SCH ×4 (07:00→22:06)
[2022-02-03] MEDS: INSULIN DETEMIR (LEVEMIR) 100 UNIT/ML SYR SQ SCH (07:02)
[2022-02-03 08:26] LABS: Calcium 9.2 mg/dL (8.4-10.2); Magnesium 1.9 mg/dL (1.6-2.3); Potassium 4.7 mmol/L (3.5-5.1)
[2022-02-03] MEDS: SYMBICORT 160-4.5 MCG INHALER INHALATION SCH ×4 (08:47→19:35)
[2022-02-03] MEDS: IPRATROPIUM-ALBUTEROL 3 ML NEB INHALATION SCH ×4 (08:47→19:24)
--- NOTE | 2022-02-03 08:59 | CT ---
EXAMINATION TYPE: CT chest wo con DATE OF EXAM: 02/03/2022 COMPARISON: CT chest December 19, 2021. Chest x-ray one day earlier. HISTORY: loculated pleural effusion CT DLP: 422.3 mGycm. Automated Exposure Control for Dose Reduction was Utilized. TECHNIQUE: CT scan of the thorax is performed without IV contrast. FINDINGS: LUNGS: Moderate to advanced underlying emphysematous change is redemonstrated. There is confirmation of moderate to large size right pleural effusion which has slightly more prominent lateral component. There is associated compressive atelectasis. There is suggestion of some loculation lower aspect as There is air-fluid level noted axial image 52 measuring 3.8 cm transversely behind focus of calcific ation or calcified nodule/benign granuloma. This is within a thin-walled cyst. Some central right inf rahilar consolidation remains present. There is some right-sided volume loss with mediastinal shift t o the right noted on current study. Left lung remains clear. MEDIASTINUM: Lack of IV contrast is noted to limit evaluation for mediastinal and especially hilar ad enopathy. There are persistent prominent and slightly enlarged grouped noncalcified AP window lymph n odes near axial image 31 unchanged from prior. There are calcified right tracheobronchial and subcari nal lymph nodes redemonstrated. Small to tiny pericardial effusion redemonstrated. No cardiomegaly. S evere three-vessel coronary artery calcification redemonstrated. OTHER: Calcifications throughout the spleen consistent with probable old granulomatous disease again seen. Multilevel spurring in the lower thoracic spine redemonstrated. IMPRESSION: Moderate to borderline large size right pleural fluid collection. Slightly prominent late ral component. Some septations inferiorly are seen. There is a thin-walled cyst with air-fluid level in the right lower lung. There is some right-sided volume loss. There is background moderate to advan jeff underlying emphysematous change redemonstrated. Left lung remains clear. Stable prominent AP wind ow lymph nodes. Evidence of old granulomatous disease again seen. Correlate clinically.
[2022-02-03] MEDS: OSELTAMIVIR 60 MG/10 ML ORAL SYRINGE PO SCH ×2 (09:30→22:58)
[2022-02-03] MEDS: TAMSULOSIN 0.4 MG CAP.ER.24H PO SCH (09:31)
[2022-02-03] MEDS: allopurinoL 100 MG TAB PO SCH (09:31)
[2022-02-03] MEDS: MAGNESIUM OXIDE 400 MG TAB PO SCH ×2 (09:31→22:57)
[2022-02-03] MEDS: FUROSEMIDE 20 MG TAB PO SCH (09:31)
[2022-02-03] MEDS: LOSARTAN 50 MG TAB PO SCH ×2 (09:31→09:44)
[2022-02-03] MEDS: METOPROLOL TARTRATE 25 MG TAB PO SCH ×2 (09:31→19:44)
[2022-02-03] MEDS: CHOLECALCIFEROL 25 MCG (1000 IU) TABLET PO SCH (09:31)
[2022-02-03] MEDS: LIDOCAINE 5% PATCH TOPICAL SCH (09:32)
--- NOTE | 2022-02-03 09:41 | P.PN ---
Subjective Patient is seen in follow-up for acute kidney injury on chronic kidney disease. Renal function stable. Kenny catheter removed. Has been voiding. Nonoliguric. Oral intake good. Blood pressure has been on the lower side. On oral Lasix. No active complaints. Vital signs are stable. General: Awake. No acute distress. HEENT: Head exam is unremarkable. On nasal cannula. LUNGS: Breath sounds decreased. HEART: Rate and Rhythm are regular. ABDOMEN: Soft, no distention. EXTREMITITES: No edema. Objective - Vital Signs Vital signs: Vital Signs Temp 97.8 F 02/03/22 04:00 Pulse 119 H 02/03/22 09:01 Resp 18 02/03/22 08:47 BP 95/58 02/03/22 04:00 Pulse Ox 94 L 02/03/22 08:47 FiO2 70 01/30/22 01:00 Intake & Output 02/02/22 02/03/22 02/03/22 18:59 06:59 18:59 Intake Total 350 118 Output Total 300 650 Balance 50 -650 118 Intake: Intake, IV Titration 350 Amount Azithromycin 500 mg In 250 Sodium Chloride 0.9% 250 ml @ 250 mls/hr IVPB DAILY [facility] Rx#:[id number] cefTRIAXone 1 gm In 100 Sodium Chloride 0.9% 50 ml @ 100 mls/hr IVPB Q24HR [facility] Rx#:[id number] Oral 118 Output: Urine 300 650 Other: Voiding Method Urinal Urinal - Labs CBC & Chem 7: 01/31/22 03:44 02/03/22 07:55 Labs: Abnormal Lab Results - Last 24 Hours (Table) 02/02/22 02/02/22 02/02/22 Range/Units 07:31 11:45 20:08 Sodium (137-145) mmol/L BUN (9-20) mg/dL Glucose (74-99) mg/dL POC Glucose (mg/dL) 115 H 135 H (70-110) mg/dL Total Protein 5.7 L (6.3-8.2) g/dL 02/03/22 02/03/22 Range/Units 06:57 07:55 Sodium 135 L (137-145) mmol/L BUN 46 H (9-20) mg/dL Glucose 128 H (74-99) mg/dL POC Glucose (mg/dL) 134 H (70-110) mg/dL Total Protein (6.3-8.2) g/dL Microbiology - Last 24 Hours (Table) 02/02/22 09:30 Gram Stain - Preliminary Pleural Fluid Body Fluid Culture - Preliminary 01/30/22 16:08 Blood Culture - Preliminary Blood No Growth after 72 hours 02/02/22 09:30 Acid Fast Bacilli Culture - Preliminary Pleural Fluid 02/02/22 09:30 Fungal Culture - Preliminary Pleural Fluid Assessment and Plan Plan: Assessment: 1. Acute kidney injury secondary to ATN secondary to infection and further worsened with the use of losartan and diuretic. Also component of urinary retention. Renal function improved. Creatinine stable at 1.18 today. No hydronephrosis noted on uls. 2. Chronic kidney disease stage IIIa with baseline creatinine near 1.3-1.4 secondary to nephrosclerosis and diabetic kidney disease. 3. Acute hypoxic respiratory failure. 4. Influenza B infection. 5. Diabetes mellitus. 6. Metabolic acidosis secondary to acute kidney injury and lactic acidosis. Resolved. 7. Hyponatremia secondary to acute kidney injury. Improved. 8. Urinary retention. Kenny catheter removed 02/02/2022. On Flomax. Plan: Maintain oral Lasix. Encouraged oral intake. Stop losartan as blood pressure is on the lower side. Avoid nephrotoxins. Continue to monitor renal function and urine output.
[2022-02-03] MEDS: FLUTICASONE 50MCG/SPRAY NASAL 16GM EA NOSTRIL SCH ×2 (09:42→22:59)
[2022-02-03 11:12] LABS: Glucose, BF Source Pleural Fluid; Glucose, Body Fluid 31 mg/dL; T. Protein, Body Fluid Source Pleural Fluid; Total Protein, Body Fluid 4510 mg/dL
[2022-02-03 11:27] LABS: LDH, Body Fluid Source Pleural Fluid
[2022-02-03 11:43] LABS: Glucose,Whole Blood 195 mg/dL (70-110)
--- NOTE | 2022-02-03 13:20 | P.PN ---
Subjective Progress Note Date: 02/03/22 Principal diagnosis: Acute right lower lobe pneumonia This is a 81-year-old white male with history of COPD, chronic hypoxic respiratory failure, maintained on oxygen at home, patient follows up with Dr. Aaron lopez for his underlying COPD. Patient was seen in the ER this morning with almost 2 weeks history of nonproductive cough, shortness of breath, wheezing, patient was in significant respiratory distress upon arrival to the ER, he was also complaining of right-sided flank pain. Patient denied any sick contacts. Denied any chest pain. Chest x-ray question a right lower lobe pneumonia is viral screening came back positive for influenza B. COVID-19 PCR was negative. Patient was noted to have a bit of leukocytosis with WBC count of 11.3 hemoglobin 13.1. ABG on 70% FiO2 showed a pO2 of 111 pCO2 38 pH of 7.3 to apparently this was done on BiPAP at 70% patient was also noted to have acute kidney injury with a BUN of 71 creatinine 2.70 and his blood sugar was 364 patient was admitted and this consult was initiated. Patient is now receiving Rocephin and Zithromax is also receiving bronchodilators in the form of DuoNeb and Symbicort. He is also on Tamiflu, and his IV fluid is at 75 mL per hour patient was seen by nephrology in consultation for his acute kidney injury renal ultrasound is pending. Reevaluated today on 01/31/22, patient is on 10 L high flow nasal cannula O2 sats is 94%, he is afebrile with a temp of 97 7 blood pressure is 123/70 heart rate is 82, patient feels better today compared to how he felt yesterday. Remains on Tamiflu remains on antibiotics and he remains on bronchodilators. Definite improvement compared to yesterday, nonetheless remains relatively ill. WBC count today is 15.9 hemoglobin 11.80 left lites are normal BUN is 71 creatinine 1.66, improving compared to admission creatinine Reevaluated today on 02/01/22, patient remains on6 L high flow nasal cannula, doing well, however his chest x-ray yesterday is showing worsening of right lower lobe pneumonia and now he is developing a pleural effusion. Clinically the patient is feeling great, I believe he is developing a parapneumonic pleural effusion which is too small to consider thoracentesis but I will repeat his chest x-ray and ultrasound in the morning and if the effusion is large enough may consider thoracentesis. In the meantime the patient is doing well clinically and feeling better. Reevaluated today on 02/02/22, patient seems to be doing fairly well, no major issues over the last 24 hours, chest x-ray and ultrasound are showing worsening of the pneumonia and the pleural effusion, hence I went ahead and recommended a diagnostic and therapeutic right-sided pleural effusion thoracentesis. This was done, and I was able to drain 700 mL of fluid from the right pleural space, and fluid was sent for different diagnostic studies. Patient remains on antibiotics for right lower lobe pneumonia and he received a full course of Tamiflu for his influenza type B infection as noted by positive PCR Reevaluated today on 02/03/22, patient is basically about the same, his CT of the chest is showing lateral pleural effusion that seems to be possibly loculated at the bases, and it would be difficult for me to drain the fluid hence am recommending ultrasound-guided thoracentesis to be done by radiology, and the patient may even require a pigtail catheter placement if the effusion does not completely resolve with thoracentesis. Yesterday I was able to drain 700 mL which is another pocket of pleural effusion from the right base posteriorly. This fluid on the CT of the chest seems to be lateral and seems to be relatively large in size. The fluid I drained is clearly exudative in nature with elevated protein and elevated LDH and low glucose of 31, malignancy is not entirely ruled out, but felt to be less likely. Patient remains on antibiotics for his pneumonia. Objective - Vital Signs Vital signs: Vital Signs Temp 97.8 F 02/03/22 04:00 Pulse 109 H 02/03/22 11:54 Resp 18 02/03/22 11:54 BP 95/58 02/03/22 04:00 Pulse Ox 94 L 02/03/22 08:47 FiO2 70 01/30/22 01:00 Intake & Output 02/02/22 02/03/22 02/03/22 18:59 06:59 18:59 Intake Total 350 118 Output Total 300 650 Balance 50 -650 118 Intake: Intake, IV Titration 350 Amount Azithromycin 500 mg In 250 Sodium Chloride 0.9% 250 ml @ 250 mls/hr IVPB DAILY [facility] Rx#:[id number] cefTRIAXone 1 gm In 100 Sodium Chloride 0.9% 50 ml @ 100 mls/hr IVPB Q24HR [facility] Rx#:[id number] Oral 118 Output: Urine 300 650 Other: Voiding Method Urinal Urinal - Exam Physical Exam: Revealed a 81-year-old white male in no distress, remains on 6 L nasal cannula HEENT:[Neck is supple.] [No neck masses.] [No thyromegaly.] [No JVD.] Chest: [Minimal crackles at the right base no rhonchi no wheezes Cardiac Exam: [Normal S1 and S2, no S3 gallop, no murmur.] Abdomen: [Soft, nontender, no megaly, no rebound, no guarding, normal bowel sounds.] Extremities: [No clubbing, no edema, no cyanosis.] Neurological Exam: [No focal neurologic deficit.] Alert and oriented 3 Psychiatric: Normal mood affect and normal mental status examination. Skin: No rashes - Labs CBC & Chem 7: 01/31/22 03:44 02/03/22 07:55 Labs: Abnormal Lab Results - Last 24 Hours (Table) 02/02/22 02/03/22 02/03/22 Range/Units 20:08 06:57 07:55 Sodium 135 L (137-145) mmol/L BUN 46 H (9-20) mg/dL Glucose 128 H (74-99) mg/dL POC Glucose (mg/dL) 135 H 134 H (70-110) mg/dL 02/03/22 Range/Units 11:41 Sodium (137-145) mmol/L BUN (9-20) mg/dL Glucose (74-99) mg/dL POC Glucose (mg/dL) 195 H (70-110) mg/dL Microbiology - Last 24 Hours (Table) 02/02/22 09:30 Gram Stain - Preliminary Pleural Fluid Body Fluid Culture - Preliminary 01/30/22 16:08 Blood Culture - Preliminary Blood No Growth after 72 hours 02/02/22 09:30 Acid Fast Bacilli Culture - Preliminary Pleural Fluid 02/02/22 09:30 Fungal Culture - Preliminary Pleural Fluid Assessment and Plan Assessment: Impression: Acute hypoxic respiratory failure secondary to right lower lobe pneumonia and parapneumonic pleural effusion. And acute exacerbation of COPD Acute community-acquired pneumonia, mostly involving the right lower lobe Status post right sided thoracentesis drained 700 mL of exudative pleural effusion Influenza B infection Acute exacerbation of COPD Acute on chronic hypoxic respiratory failure secondary to above Type 2 diabetes Dyslipidemia Benign essential hypertension Recommendation:continue oxygen and antibiotics and titrate oxygen accordingly Request ultrasound-guided thoracentesis of the lateral right-sided pleural effusion by interventional radiology Continue antibiotics for exudative parapneumonic effusion, malignancy is not entirely ruled out but felt to be less likely Continue Tamiflu Continue Rocephin and Zithromax Continue bronchodilators, including Symbicort We will continue to follow. Time with Patient: Less than 30
--- NOTE | 2022-02-03 13:58 | P.PN ---
Subjective Progress Note Date: 02/03/22 H&P Date: 01/30/22 Chief Complaint: Pneumonia shortness of breath This is a 81-year-old white male well-known to our practice with a long-standing history of COPD chronic hypoxic respiratory failure maintained on oxygen at home patient follows with Dr. Caro and Dr. Dakota Bills for underlying COPD was seen in the emergency room with 2 week history of nonproductive cough shortness of breath patient presented in significant respiratory distress when he presented to the emergency room complaining of right-sided flank pain denies chest pain chest x-ray reveals right lower lobe pneumonia bilateral screening came back as positive influenza COVID-19 PCR was negative patient had leukocytosis WBC of 11.3 hemoglobin 13.1 ABG on admission 70% FiO2 a pO2 of 111 and a pCO2 of 38 pH was 7.3 patient has been on IPAP at home and currently has acute kidney injury with a BUNs of 71 creatinine 2.7 blood culture was 364 lactic acid was elevated and pro-calcitonin was elevated 01/31/2022 Maintained on gentle IV fluid hydration, Tamiflu, antibiotics, nebulized bronchodilators. Lactic acid down to 1.5, losartan dose decreased with renal function improving, creatinine down to 1.66. Maintaining O2 sats in the 90s on 10 L high flow nasal cannula. Afebrile, WBC 15.9. Hemoglobin 11.8, electrolytes within normal limits. 02/01/2022 continues on 02 decreased further down to 6 L nasal cannula maintaining O2 sats in the 90s. Diet intake 25%. Hyperglycemic. Denies chest pain, palpitations. Afebrile. Continues on nebulized bronchodilators, Rocephin, Zithromax, Tamiflu. 02/02/2022 continues on Rocephin, Zithromax, nebulized bronchodilators, Tamiflu, maintaining O2 sats in the 90s on 6 L nasal cannula. Afebrile. BUN decreased to 47, creatinine 1.21. Chest ultrasound reporting right pleural effusion and marked for potential thoracentesis, 12.1 cm, possible loculated. Chest x-ray reported increasing right pleural effusion with some underlying atelectasis. Status post right thoracentesis, 700 ml pleural fluid drained, cytology/cultures pending. Tolerated procedure well. Levemir added to med regimen yesterday, blood sugars better controlled. A1c 7.5. 02/03/2022 blood pressure soft, losartan discontinued. Maintained on antibiotics for pneumonia . Pleural fluid analysis reporting elevated protein complete LDH and low glucose .Chest CT performed this morning reporting moderate to borderline large lateral right pleural fluid collection, possibly loculated per pulmonary's review. Thoracentesis per interventional radiology ordered. Maintaining O2 sats in the 90s on 6 L nasal cannula. Objective - Vital Signs Vital signs: Vital Signs Temp 97.8 F 02/03/22 04:00 Pulse 109 H 02/03/22 11:54 Resp 18 02/03/22 11:54 BP 95/58 02/03/22 04:00 Pulse Ox 93 L 02/03/22 13:34 FiO2 70 01/30/22 01:00 Intake & Output 02/02/22 02/03/22 02/03/22 18:59 06:59 18:59 Intake Total 350 236 Output Total 300 650 Balance 50 -650 236 Intake: Intake, IV Titration 350 Amount Azithromycin 500 mg In 250 Sodium Chloride 0.9% 250 ml @ 250 mls/hr IVPB DAILY [facility] Rx#:[id number] cefTRIAXone 1 gm In 100 Sodium Chloride 0.9% 50 ml @ 100 mls/hr IVPB Q24HR [facility] Rx#:[id number] Oral 236 Output: Urine 300 650 Other: Voiding Method Urinal Urinal - Exam General: alert and oriented times 3. no acute distress.] HEENT: [PERRL. EOMI. No pharyngeal erythema or exudate.] Neck: Supple, no JVD Cardiac: [Heart regular in rate and rhythm. No S3. No S4. No clicks, rubs. No murmur. Lungs: Fine right bibasilar crackles, no rhonchi or expiratory wheezing Abdomen: Soft, [No mass. No organomegaly. Bowel sounds presnt and normoactive in all 4 quadrants.] Extremes: [No edema no cyanosis no claudication normal pulses] Skin: [Warm and dry, No rash.] Neurologic: CN II - XII grossly intact.] - Labs CBC & Chem 7: 01/31/22 03:44 02/03/22 07:55 Labs: Abnormal Lab Results - Last 24 Hours (Table) 02/02/22 02/03/22 02/03/22 Range/Units 20:08 06:57 07:55 Sodium 135 L (137-145) mmol/L BUN 46 H (9-20) mg/dL Glucose 128 H (74-99) mg/dL POC Glucose (mg/dL) 135 H 134 H (70-110) mg/dL 02/03/22 Range/Units 11:41 Sodium (137-145) mmol/L BUN (9-20) mg/dL Glucose (74-99) mg/dL POC Glucose (mg/dL) 195 H (70-110) mg/dL Microbiology - Last 24 Hours (Table) 02/02/22 09:30 Gram Stain - Preliminary Pleural Fluid Body Fluid Culture - Preliminary 01/30/22 16:08 Blood Culture - Preliminary Blood No Growth after 72 hours 02/02/22 09:30 Acid Fast Bacilli Culture - Preliminary Pleural Fluid 02/02/22 09:30 Fungal Culture - Preliminary Pleural Fluid Assessment and Plan Assessment: (1) Sepsis Current Visit: Yes Status: Acute Code(s): A41.9 - SEPSIS, UNSPECIFIED ORGANISM SNOMED Code(s): 22771848 (2) CAP (community acquired pneumonia) Current Visit: Yes Status: Acute Code(s): J18.9 - PNEUMONIA, UNSPECIFIED ORGANISM SNOMED Code(s): 208082200 (3) Influenza B Current Visit: Yes Status: Acute Code(s): J10.1 - FLU DUE TO OTH IDENT INFLUENZA VIRUS W OTH RESP MANIFEST SNOMED Code(s): 86737255 (4) right pleural effusion, possible parapneumonic, status post thoracentesis, cytology/cultures pending (5) Hyperlipidemia Current Visit: No Status: Acute Code(s): E78.5 - HYPERLIPIDEMIA, UNSPECIFIED SNOMED Code(s): 22995951 (6) Pneumonia Current Visit: No Status: Acute Code(s): J18.9 - PNEUMONIA, UNSPECIFIED ORGANISM SNOMED Code(s): 884176809 (7) Diabetes, hyperglycemic. A1c 7.5. Further diabetic education outpatient in clinic at follow-up with PCP. Current Visit: No Status: Chronic Code(s): E11.9 - TYPE 2 DIABETES MELLITUS WITHOUT COMPLICATIONS SNOMED Code(s): 37833079 (8) Hypertension Current Visit: No Status: Chronic Code(s): I10 - ESSENTIAL (PRIMARY) HYPERTENSION SNOMED Code(s): 10626641 (9) urinary retention, status post Kenny catheter Lactic acidosis,resolved Current Visit: Yes Status: Acute Code(s): E87.2 - ACIDOSIS SNOMED Code(s): 54933019 Right parapneumonic pleural effusion status post right-sided thoracentesis, repeat ultrasound reporting bilateral right-sided large pleural effusion- possibly loculated Plan: Continue on current medication regime, monitoring and symptomatic t reatment. Interventional radiology consulted for repeat thoracentesis. Maintain nebulized bronchodilators, Rocephin, Zithromax, Tamiflu, oral Lasix. Close monitoring of renal function, repeat labs ordered for tomorrow. Pleural cytology/cultures pending. The impression and plan of care has been dictated as directed. : I performed a history and examination of this patient, discussed the same with the dictator. I agree with the dictator's note ,documented as a scribe. Any additional findings or plans will be noted.
--- NOTE | 2022-02-03 15:51 | P.PCN ---
Date of Procedure: 02/03/22 Preoperative Diagnosis: loculated right pleural effusion Postoperative Diagnosis: same Anesthesia: local Estimated Blood Loss (ml): 5 Condition: stable Disposition: no change Operative Findings: 8.5 fr tube, right lateral chest with u/s guide Description of Procedure: straw colored fluid
--- NOTE | 2022-02-03 16:30 | US ---
EXAMINATION TYPE: US guided chest tube insertion DATE OF EXAM: 02/03/2022 COMPARISON: Chest x-ray same date HISTORY: Right loculated Pleural effusion. FINDINGS: Maximal barrier technique was utilized. The skin overlying a suitable pocket of fluid in t he lateral right chest was localized and the overlying skin prepped and draped. Lidocaine was used f or local anesthesia. Ultrasound was used with sterile technique. A 21 needle was advanced into the p leural fluid collection using ultrasound and 0.018 in wire was advanced, needle was removed and trans itional dilator was advanced over the wire, wire was upsized and the access site dilated. 8.5 Wolof catheter was advanced over the wire and fixed in place, wire was removed. Fluid returned through the catheter. Hemostasis achieved. 20 cc obtained for laboratory analysis. Catheter attached to water sea l. Post procedure chest x-ray pending. There is no immediate complication. The patient discharged in stable condition without complication. IMPRESSION: STATUS POST ULTRASOUND GUIDED PLEURAL DRAINAGE TUBE CATHETER PLACEMENT, POST PROCEDURE EST X-RAY PENDING. THIS PROCEDURE WAS PERFORMED BY THE UNDERSIGNED.
--- NOTE | 2022-02-03 16:34 | XR ---
EXAMINATION TYPE: XR chest 1V portable DATE OF EXAM: 02/03/2022 COMPARISON: Chest x-ray 02/02/2022 HISTORY: Status post right chest tube placement TECHNIQUE: frontal view of the chest is obtained on 2 images. FINDINGS: There is been interval placement of right-sided pleural drainage pigtail catheter. No othe r significant interval change. There is been some slight reduction in the amount of fluid. No evident pneumothorax. IMPRESSION: No evident complication status post right-sided chest tube placement.
[2022-02-03 16:43] LABS: Glucose,Whole Blood 179 mg/dL (70-110)
[2022-02-03 20:12] LABS: Glucose,Whole Blood 157 mg/dL (70-110)
[2022-02-03] MEDS: ATORVASTATIN 40 MG TAB PO SCH (22:57)
[2022-02-04 06:01] LABS: Glucose,Whole Blood 136 mg/dL (70-110)
[2022-02-04] MEDS: SYMBICORT 160-4.5 MCG INHALER INHALATION SCH ×5 (06:33→23:19)
[2022-02-04] MEDS: INSULIN ASPART (NovoLOG) 100 UNIT/ML VIAL SQ SCH ×4 (06:33→21:37)
[2022-02-04] MEDS: INSULIN DETEMIR (LEVEMIR) 100 UNIT/ML SYR SQ SCH (07:03)
[2022-02-04 07:35] LABS: Calcium 9.2 mg/dL (8.4-10.2); Potassium 4.8 mmol/L (3.5-5.1)
--- NOTE | 2022-02-04 08:29 | XR ---
EXAMINATION TYPE: XR chest 1V portable DATE OF EXAM: 02/04/2022 8:08 AM COMPARISON: Chest radiograph from one day prior. TECHNIQUE: XR chest 1V portable Portable AP radiograph of the chest. CLINICAL INDICATION:Male, 81 years old with history of effusion; FINDINGS: Lungs/Pleura: Persistent right loculated pleural effusion with associated atelectasis.. No evidence o f left pneumothorax pleural effusion or focal consolidation. Pulmonary vascularity: Unremarkable. Heart/mediastinum: Cardiomediastinal silhouette is unremarkable. Musculoskeletal: No acute osseous pathology. Lines/Tubes: Right thoracotomy catheter pigtail with tip in appropriate position. No pneumothorax. IMPRESSION: Similar right pleural effusion with thoracotomy catheter. No pneumothorax.
[2022-02-04] MEDS: IPRATROPIUM-ALBUTEROL 3 ML NEB INHALATION SCH ×4 (09:09→19:31)
[2022-02-04] MEDS: FLUTICASONE 50MCG/SPRAY NASAL 16GM EA NOSTRIL SCH ×2 (10:00→22:27)
[2022-02-04] MEDS: LIDOCAINE 5% PATCH TOPICAL SCH (10:07)
[2022-02-04] MEDS: FUROSEMIDE 20 MG TAB PO SCH (10:08)
[2022-02-04] MEDS: TAMSULOSIN 0.4 MG CAP.ER.24H PO SCH (10:08)
[2022-02-04] MEDS: CHOLECALCIFEROL 25 MCG (1000 IU) TABLET PO SCH (10:08)
[2022-02-04] MEDS: MAGNESIUM OXIDE 400 MG TAB PO SCH ×2 (10:08→22:27)
[2022-02-04] MEDS: allopurinoL 100 MG TAB PO SCH (10:08)
[2022-02-04] MEDS: METOPROLOL TARTRATE 25 MG TAB PO SCH ×2 (10:09→22:27)
--- NOTE | 2022-02-04 11:00 | P.PN ---
Subjective Progress Note Date: 02/04/22 Principal diagnosis: Dyspnea and shortness of breath Patient is awake alert oriented 3, currently has a right sided chest tube with Pleur-evac to water seal, otherwise doing well recent chest disease CT showed a large pleural effusion possibly loculated hence the interventional radiologic placement of chest tube. Objective - Vital Signs Vital signs: Vital Signs Temp 98.1 F 02/04/22 04:00 Pulse 104 H 02/04/22 09:20 Resp 17 02/04/22 04:00 BP 137/73 02/04/22 04:00 Pulse Ox 98 02/04/22 04:00 FiO2 70 01/30/22 01:00 Intake & Output 02/03/22 02/04/22 02/04/22 18:59 06:59 18:59 Intake Total 256 20 Output Total 1016 400 Balance -760 -380 Intake: IV 20 20 Invasive Line 3 20 20 Oral 236 Output: Chest Tube Drainage 626 right posterior chest 626 Urine 390 400 Other: Voiding Method Urinal Urinal # Voids 1 - Exam General: [Patient awake, alert and oriented times 3. Patient in no acute distress.] HEENT: [PERRL. EOMI. No pharyngeal erythema or exudate.] Neck: [No adenopathy.] Cardiac: [Heart regular in rate and rhythm. No S3. No S4. No clicks, rubs. No murmur.] Lungs: Right-sided chest tube in place Pleur-evac to water seal patient's lung sounds are diminished mild bilateral bibasilar crackles Abdomen: [No mass. No organomegaly. Bowel sounds presnt and normoactive in all 4 quadrants.] Extremes: [No edema no cyanosis no claudication normal pulses] : Normal male genitalia Musculoskeletal: [No joint erythema, edema or tenderness.] Skin: [No rash.] Neurologic: [No lateralizing deficits. CN II - XII grossly intact.] Lymphatic: [No adenopathy.] - Labs CBC & Chem 7: 01/31/22 03:44 02/04/22 06:53 Labs: Abnormal Lab Results - Last 24 Hours (Table) 02/03/22 02/03/22 02/03/22 Range/Units 11:41 16:36 20:08 Sodium (137-145) mmol/L BUN (9-20) mg/dL Glucose (74-99) mg/dL POC Glucose (mg/dL) 195 H 179 H 157 H (70-110) mg/dL 02/04/22 02/04/22 Range/Units 06:00 06:53 Sodium 136 L (137-145) mmol/L BUN 47 H (9-20) mg/dL Glucose 138 H (74-99) mg/dL POC Glucose (mg/dL) 136 H (70-110) mg/dL Microbiology - Last 24 Hours (Table) 02/02/22 09:30 Acid Fast Bacilli Smear - Final Pleural Fluid Acid Fast Bacilli Culture - Preliminary 01/30/22 16:08 Blood Culture - Preliminary Blood No Growth after 96 hours 02/02/22 09:30 Gram Stain - Preliminary Pleural Fluid Body Fluid Culture - Preliminary Assessment and Plan (1) Sepsis Current Visit: Yes Status: Acute Code(s): A41.9 - SEPSIS, UNSPECIFIED ORGANISM SNOMED Code(s): 56871073 (2) CAP (community acquired pneumonia) Current Visit: Yes Status: Acute Code(s): J18.9 - PNEUMONIA, UNSPECIFIED ORGANISM SNOMED Code(s): 727755846 (3) Influenza B Current Visit: Yes Status: Acute Code(s): J10.1 - FLU DUE TO OTH IDENT INFLUENZA VIRUS W OTH RESP MANIFEST SNOMED Code(s): 36493905 (4) Lactic acidosis Current Visit: Yes Status: Acute Code(s): E87.2 - ACIDOSIS SNOMED Code(s): 20595821 (5) Hyperlipidemia Current Visit: No Status: Acute Code(s): E78.5 - HYPERLIPIDEMIA, UNSPECIFIED SNOMED Code(s): 61743579 (6) Pneumonia Current Visit: No Status: Acute Code(s): J18.9 - PNEUMONIA, UNSPECIFIED ORGANISM SNOMED Code(s): 676348981 (7) Diabetes Current Visit: No Status: Chronic Code(s): E11.9 - TYPE 2 DIABETES MELLITUS WITHOUT COMPLICATIONS SNOMED Code(s): 24047959 (8) Hypertension Current Visit: No Status: Chronic Code(s): I10 - ESSENTIAL (PRIMARY) HYPERTENSION SNOMED Code(s): 91451802 Plan: Respiratory sepsis Acute exacerbation of chronic COPD Acute kidney injury Influenza B right lower lobe pneumonia Type 2 diabetes patient is BiPAP dependent O2 dependent and steroid dependent Will continue Rocephin 1 g IV piggyback every 24 hours, will continue Zithromax 500 mg IV piggyback every 24 hours Right-sided chest tube to Pleur-evac with waterseal We'll continue to follow closely Time with Patient: Greater than 30
--- NOTE | 2022-02-04 11:05 | P.PN ---
Subjective Patient is seen for follow-up for acute kidney injury. Renal function has improved with creatinine down to 1.12 from 2.39 on initial admission. Currently maintained on oral Lasix at 20 mg by mouth daily Patient tested positive for influenza B. Objective - Vital Signs Vital signs: Vital Signs Temp 98.1 F 02/04/22 04:00 Pulse 104 H 02/04/22 09:20 Resp 17 02/04/22 04:00 BP 137/73 02/04/22 04:00 Pulse Ox 98 02/04/22 04:00 FiO2 70 01/30/22 01:00 Intake & Output 02/03/22 02/04/22 02/04/22 18:59 06:59 18:59 Intake Total 256 20 Output Total 1016 400 Balance -760 -380 Intake: IV 20 20 Invasive Line 3 20 20 Oral 236 Output: Chest Tube Drainage 626 right posterior chest 626 Urine 390 400 Other: Voiding Method Urinal Urinal # Voids 1 - Exam Patient is awake, comfortable not in any acute distress Examination of the heart S1 and S2 Examination of the lungs bilateral breath sounds are heard Abdomen is soft nontender Examination lower extremity shows no evidence of edema Chest tube present on the right side [employer] exam grossly intact - Labs CBC & Chem 7: 01/31/22 03:44 02/04/22 06:53 Labs: Abnormal Lab Results - Last 24 Hours (Table) 02/03/22 02/03/22 02/03/22 Range/Units 11:41 16:36 20:08 Sodium (137-145) mmol/L BUN (9-20) mg/dL Glucose (74-99) mg/dL POC Glucose (mg/dL) 195 H 179 H 157 H (70-110) mg/dL 02/04/22 02/04/22 Range/Units 06:00 06:53 Sodium 136 L (137-145) mmol/L BUN 47 H (9-20) mg/dL Glucose 138 H (74-99) mg/dL POC Glucose (mg/dL) 136 H (70-110) mg/dL Microbiology - Last 24 Hours (Table) 02/02/22 09:30 Acid Fast Bacilli Smear - Final Pleural Fluid Acid Fast Bacilli Culture - Preliminary 01/30/22 16:08 Blood Culture - Preliminary Blood No Growth after 96 hours 02/02/22 09:30 Gram Stain - Preliminary Pleural Fluid Body Fluid Culture - Preliminary Assessment and Plan Assessment: 1. Acute kidney injury secondary to ATN secondary to infection and further worsened with the use of losartan and diuretic. Also component of urinary retention. Renal function improved. Creatinine stable at 1.1 today. No hydronephrosis noted on uls. 2. Chronic kidney disease stage IIIa with baseline creatinine near 1.3-1.4 secondary to nephrosclerosis and diabetic kidney disease. 3. Acute hypoxic respiratory failure. 4. Influenza B infection. 5. Diabetes mellitus. 6. Metabolic acidosis secondary to acute kidney injury and lactic acidosis. Resolved. 7. Hyponatremia secondary to acute kidney injury. Improved. 8. Urinary retention. Kenny catheter removed 02/02/2022. On Flomax. Plan: Continue with oral Lasix Repeat labs in a.m. Continue with Flomax
[2022-02-04] MEDS ORDERED: ALTEPLASE 10 MG in SODIUM CHLORIDE 0.9% 50 ML IRRIGATION ONE (11:16)
[2022-02-04] MEDS ORDERED: DORNASE ALFA 5 MG in SODIUM CHLORIDE 0.9% 50 ML IRRIGATION ONE (11:16)
--- NOTE | 2022-02-04 11:37 | P.PN ---
Subjective Progress Note Date: 02/04/22 Principal diagnosis: Acute right lower lobe pneumonia This is a 81-year-old white male with history of COPD, chronic hypoxic respiratory failure, maintained on oxygen at home, patient follows up with Dr. Aaron lopez for his underlying COPD. Patient was seen in the ER this morning with almost 2 weeks history of nonproductive cough, shortness of breath, wheezing, patient was in significant respiratory distress upon arrival to the ER, he was also complaining of right-sided flank pain. Patient denied any sick contacts. Denied any chest pain. Chest x-ray question a right lower lobe pneumonia is viral screening came back positive for influenza B. COVID-19 PCR was negative. Patient was noted to have a bit of leukocytosis with WBC count of 11.3 hemoglobin 13.1. ABG on 70% FiO2 showed a pO2 of 111 pCO2 38 pH of 7.3 to apparently this was done on BiPAP at 70% patient was also noted to have acute kidney injury with a BUN of 71 creatinine 2.70 and his blood sugar was 364 patient was admitted and this consult was initiated. Patient is now receiving Rocephin and Zithromax is also receiving bronchodilators in the form of DuoNeb and Symbicort. He is also on Tamiflu, and his IV fluid is at 75 mL per hour patient was seen by nephrology in consultation for his acute kidney injury renal ultrasound is pending. Reevaluated today on 01/31/22, patient is on 10 L high flow nasal cannula O2 sats is 94%, he is afebrile with a temp of 97 7 blood pressure is 123/70 heart rate is 82, patient feels better today compared to how he felt yesterday. Remains on Tamiflu remains on antibiotics and he remains on bronchodilators. Definite improvement compared to yesterday, nonetheless remains relatively ill. WBC count today is 15.9 hemoglobin 11.80 left lites are normal BUN is 71 creatinine 1.66, improving compared to admission creatinine Reevaluated today on 02/01/22, patient remains on6 L high flow nasal cannula, doing well, however his chest x-ray yesterday is showing worsening of right lower lobe pneumonia and now he is developing a pleural effusion. Clinically the patient is feeling great, I believe he is developing a parapneumonic pleural effusion which is too small to consider thoracentesis but I will repeat his chest x-ray and ultrasound in the morning and if the effusion is large enough may consider thoracentesis. In the meantime the patient is doing well clinically and feeling better. Reevaluated today on 02/02/22, patient seems to be doing fairly well, no major issues over the last 24 hours, chest x-ray and ultrasound are showing worsening of the pneumonia and the pleural effusion, hence I went ahead and recommended a diagnostic and therapeutic right-sided pleural effusion thoracentesis. This was done, and I was able to drain 700 mL of fluid from the right pleural space, and fluid was sent for different diagnostic studies. Patient remains on antibiotics for right lower lobe pneumonia and he received a full course of Tamiflu for his influenza type B infection as noted by positive PCR Reevaluated today on 02/03/22, patient is basically about the same, his CT of the chest is showing lateral pleural effusion that seems to be possibly loculated at the bases, and it would be difficult for me to drain the fluid hence am recommending ultrasound-guided thoracentesis to be done by radiology, and the patient may even require a pigtail catheter placement if the effusion does not completely resolve with thoracentesis. Yesterday I was able to drain 700 mL which is another pocket of pleural effusion from the right base posteriorly. This fluid on the CT of the chest seems to be lateral and seems to be relatively large in size. The fluid I drained is clearly exudative in nature with elevated protein and elevated LDH and low glucose of 31, malignancy is not entirely ruled out, but felt to be less likely. Patient remains on antibiotics for his pneumonia. Reevaluated today on 02/04/22, patient remains on the regular medical floor, r emains on few liters nasal cannula,/4 L, O2 sats is 98%, patient seems to be doing well, he underwent pigtail catheter placement yesterday for his loculated pleural effusion, and so far 700 mL of fluid had been drained, chest x-ray continues to show some loculation on the pleural effusion and I'm recommending thoracic surgery to evaluate for possible alteplase infusion into the pleural space. Cultures on the pleural effusion are pending, however the fluid is basically exudative in nature, and it is most likely parapneumonic although malignancy is not entirely ruled out but felt to be less likely. Objective - Vital Signs Vital signs: Vital Signs Temp 98.1 F 02/04/22 04:00 Pulse 104 H 02/04/22 09:20 Resp 17 02/04/22 04:00 BP 137/73 02/04/22 04:00 Pulse Ox 98 02/04/22 04:00 FiO2 70 01/30/22 01:00 Intake & Output 02/03/22 02/04/22 02/04/22 18:59 06:59 18:59 Intake Total 256 20 Output Total 1016 400 Balance -760 -380 Intake: IV 20 20 Invasive Line 3 20 20 Oral 236 Output: Chest Tube Drainage 626 right posterior chest 626 Urine 390 400 Other: Voiding Method Urinal Urinal # Voids 1 - Exam Physical Exam: Revealed a 81-year-old white male in no distress, remains on 4 L nasal cannula HEENT:[Neck is supple.] [No neck masses.] [No thyromegaly.] [No JVD.] Chest: [Minimal crackles at the right base no rhonchi no wheezes, right-sided pigtail catheter is noted connected to Pleur-evac, 700 mL of thick yellow-green fluid noted in the pleural VAC Cardiac Exam: [Normal S1 and S2, no S3 gallop, no murmur.] Abdomen: [Soft, nontender, no megaly, no rebound, no guarding, normal bowel sounds.] Extremities: [No clubbing, no edema, no cyanosis.] Neurological Exam: [No focal neurologic deficit.] Alert and oriented 3 Psychiatric: Normal mood affect and normal mental status examination. Skin: No rashes - Labs CBC & Chem 7: 01/31/22 03:44 02/04/22 06:53 Labs: Abnormal Lab Results - Last 24 Hours (Table) 02/03/22 02/03/22 02/03/22 Range/Units 11:41 16:36 20:08 Sodium (137-145) mmol/L BUN (9-20) mg/dL Glucose (74-99) mg/dL POC Glucose (mg/dL) 195 H 179 H 157 H (70-110) mg/dL 02/04/22 02/04/22 Range/Units 06:00 06:53 Sodium 136 L (137-145) mmol/L BUN 47 H (9-20) mg/dL Glucose 138 H (74-99) mg/dL POC Glucose (mg/dL) 136 H (70-110) mg/dL Microbiology - Last 24 Hours (Table) 02/02/22 09:30 Acid Fast Bacilli Smear - Final Pleural Fluid Acid Fast Bacilli Culture - Preliminary 01/30/22 16:08 Blood Culture - Preliminary Blood No Growth after 96 hours 02/02/22 09:30 Gram Stain - Preliminary Pleural Fluid Body Fluid Culture - Preliminary Assessment and Plan Assessment: Impression: Acute hypoxic respiratory failure secondary to right lower lobe pneumonia and parapneumonic pleural effusion. And acute exacerbation of COPD Acute community-acquired pneumonia, mostly involving the right lower lobe Status post right sided thoracentesis drained 700 mL of exudative pleural effusion Influenza B infection Acute exacerbation of COPD Acute on chronic hypoxic respiratory failure secondary to above Type 2 diabetes Dyslipidemia Benign essential hypertension Recommendation: continue oxygen Continue antibiotics empirically cultures are pending so far the cultures are negative from the pleural effusion Continue pigtail catheter to Pleur-evac drainage and suction Thoracic surgery to evaluate for possible alteplase infusion Finished the course of Tamiflu Continue Rocephin and Zithromax Continue bronchodilators, including Symbicort We will continue to follow. Time with Patient: Less than 30
--- NOTE | 2022-02-04 11:46 | P.GSCN ---
History of Present Illness Consult date: 02/04/22 Reason for Consult: Complex right pleural effusion evaluate for alteplase/dornase pleural instillation Requesting physician: Debbie Duncan History of present illness: This is a 81-year-old gentleman who is followed by Dr. Javier Godinez on an outpatient basis for his primary care service. The patient also follows with Pb Jiang for his COPD management. 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 He presented here to the emergency department at [facility] on 01/29/2022 due to complaints of progressive shortness of breath over a one week period, pain to his right lower chest, and a productive cough with brownish colored phlegm. He denies any recent fever, chills, nausea, vomiting, diarrhea, constipation, hemoptysis, hematemesis, chest pressure, palpitations, presyncope or syncope. Laboratory results on admission showed a WBC count of 11.3, hemoglobin 13.1, hematocrit 41.8, platelets 389, PT 10.3, INR 0.9, PTT 23.4, plastic lactic acid 5.3, troponin less than 0.020, proBNP 598, sodium 135, potassium 4.9, CO2 18, B UN 67, creatinine 2.39, and glucose 281. A coronavirus PCR was completed which showed not detected, although an influenza type B PCR showed detected. A chest x-ray on admission showed some right pleural effusion and right lower lobe pneumonia. Subsequently, due to the patient's presenting symptoms and positive influenza type B PCR he was admitted for further evaluation and treatment. He is currently on Rocephin for antibiotic coverage and is also receiving Tamiflu. The patient developed a right-sided pleural effusion with repeat x-rays showing increasing right pleural effusion with some underlying atelectasis. On 02/02/2022 a right-sided thoracentesis was completed by Dr. Duncan with 700 mL of thick millie colored fluid drained. The pleural fluid cytology showed predominantly acute inflammatory cells consistent with empyema and no cytologically malignant cells were identified. On 02/03/[address] scanning of his chest was completed which showed a moderate borderline large size right pleural fluid collection slightly prominent lateral component with some septations inferiorly seen. It also demonstrated a thin-walled cyst with air- fluid level in the right lower lung. Due to the findings on the computed tomography scan of the chest interventional radiology was consulted and the patient underwent a placement of a right pleural pigtail catheter yesterday 02/03/2022. Subsequently, Dr. Catrachito Saavedra was consulted for further evaluation and treatment recommendations regarding the right pleural effusion. Review of Systems A 14 point review of systems was completed and was negative except as mentioned in the HPI. Past Medical History Past Medical History: Chest Pain / Angina, COPD, Diabetes Mellitus, Hype rlipidemia, Hypertension, Myocardial Infarction (MA), Pneumonia, Renal Disease, Skin Disorder Additional Past Medical History / Comment(s): Stage 2 kidney failure, gout Last Myocardial Infarction Date:: 1990 History of Any Multi-Drug Resistant Organisms: None Reported Past Surgical History: Heart Catheterization, Joint Replacement Additional Past Surgical History / Comment(s): AAA repair, rt leg aneursym with 2 stents, sarah cataracts, neck surgery, lt hip replacement Past Anesthesia/Blood Transfusion Reactions: Previous Problems w/ Anesthesia, Motion Sickness Additional Past Anesthesia/Blood Transfusion Reaction / Comm: previous difficulty with general anesthesia due to COPD and difficulty breathing Past Psychological History: No Psychological Hx Reported Smoking Status: Former smoker (Quit Smoking 18 years ago) Past Alcohol Use History: None Reported Past Drug Use History: None Reported - Past Family History Father Additional Family Medical History / Comment(s): AT AGE 63 MASSIVE MA Mother Family Medical History: No Reported History Additional Family Medical History / Comment(s): AGE 42 UNCONTROLLED HIGH BLOOD PRESSURE/ MIGRAINES Medications and Allergies Home Medications Medication Instructions Recorded Confirmed Type Albuterol Inhaler [Ventolin Hfa 1 puff INHALATION RT-Q6H PRN 01/28/14 01/30/22 History Inhaler] Fluticasone Propionate [Flonase] 1 spr EA NOSTRIL BID 01/28/14 01/30/22 History metFORMIN HCL [Glucophage] 500 mg PO BID 01/28/14 01/30/22 History Albuterol Nebulized [Ventolin 3 ml INHALATION RT-QID PRN 05/29/14 01/30/22 History Nebulized] Losartan Potassium 100 mg PO DAILY 02/22/16 01/30/22 History Alogliptin Benzoate [Alogliptin] 12.5 mg PO DAILY 03/17/19 01/30/22 History Tiotropium [place] [Spiriva 2 puff INHALATION RT-DAILY 03/17/19 01/30/22 History Respimat] Atorvastatin Calcium [Lipitor] 40 mg PO HS 01/30/22 01/30/22 History Carboxymethylcellulose Sodium 1 drop BOTH EYES DAILY PRN 01/30/22 01/30/22 History Cholecalciferol [Vitamin D3 (25 25 mcg PO DAILY 01/30/22 01/30/22 History Mcg = 1000 Iu)] Fluticasone Propion/Salmeterol 1 puff INHALATION RT-BID 01/30/22 01/30/22 History [Advair 500-50 Diskus] Lidocaine 5% Patch [Lidoderm 5% 1 patch TRANSDERM DAILY 01/30/22 01/30/22 History Patch] Magnesium Oxide 420mg 420 mg PO BID 01/30/22 01/30/22 History Metoprolol Tartrate [Lopressor] 75 mg PO BID 01/30/22 01/30/22 History allopurinoL [Zyloprim] 100 mg PO DAILY 01/30/22 01/30/22 History hydroCHLOROthiazide [Hydrodiuril] 25 mg PO Q48H 01/30/22 01/30/22 History Allergies Allergy/AdvReac Type Severity Reaction Status Date / Time enalaprilat [From Vasotec] Allergy Per [facility] Verified 01/30/22 09:09 records tramadol AdvReac Hallucinati Verified 01/30/22 09:09 ons Surgical - Exam Vital Signs Temp Pulse Resp BP Pulse Ox 99.8 F H 122 H 42 H 163/107 94 L 01/29/22 23:07 01/29/22 23:07 01/29/22 23:07 01/29/22 23:07 01/29/22 23:07 - General well developed, well nourished, no distress, moderate pain (To his right chest with taking deep breaths), chronically ill - Eyes PERRL, normal ocular movement, no pale, no icteric - ENT normal pinna, normal nares, normal mucosa, decreased hearing, poor custodial - Neck no masses, no bruits, trachea midline, no venous distension - Respiratory Lungs with coarse rhonchi throughout, diminished to his right lower lobe. Respirations are symmetrical and nonlabored. Oxygen saturation are 98% on 4 L nasal cannula. - Cardiovascular Regular rhythm and tachycardic rate. S1 and S2 present, negative for S3, gallop or murmur. No peripheral edema. - Abdomen Abdomen is soft, nontender and nondistended. Active bowel sounds present in all 4 quadrants. No guarding or rigidity. No organomegaly appreciated. - Genitourinary Deferred - Rectum Deferred - Integumentary Skin is warm and dry. No clubbing or cyanosis is present. no rash, no growths - Neurologic No focal deficits. normal coordination, normal sensation - Musculoskeletal Moves all 4 extremities with equal strength bilaterally. - Psychiatric oriented to time, oriented to person, oriented to place, speech is normal, memory intact Results - Labs 01/31/22 03:44 02/04/22 06:53 Abnormal Lab Results - Last 24 Hours (Table) 02/03/22 02/03/22 02/03/22 Range/Units 11:41 16:36 20:08 Sodium (137-145) mmol/L BUN (9-20) mg/dL Glucose (74-99) mg/dL POC Glucose (mg/dL) 195 H 179 H 157 H (70-110) mg/dL 02/04/22 02/04/22 Range/Units 06:00 06:53 Sodium 136 L (137-145) mmol/L BUN 47 H (9-20) mg/dL Glucose 138 H (74-99) mg/dL POC Glucose (mg/dL) 136 H (70-110) mg/dL Microbiology - Last 24 Hours (Table) 02/02/22 09:30 Acid Fast Bacilli Smear - Final Pleural Fluid Acid Fast Bacilli Culture - Preliminary 01/30/22 16:08 Blood Culture - Preliminary Blood No Growth after 96 hours 02/02/22 09:30 Gram Stain - Preliminary Pleural Fluid Body Fluid Culture - Preliminary Diabetes panel 02/04/22 Range/Units 06:53 Sodium 136 L (137-145) mmol/L Potassium 4.8 (3.5-5.1) mmol/L Chloride 99 (98-107) mmol/L Carbon Dioxide 27 (22-30) mmol/L BUN 47 H (9-20) mg/dL Creatinine 1.12 (0.66-1.25) mg/dL Glucose 138 H (74-99) mg/dL Calcium 9.2 (8.4-10.2) mg/dL Calcium panel 02/04/22 Range/Units 06:53 Calcium 9.2 (8.4-10.2) mg/dL Pituitary panel 02/04/22 Range/Units 06:53 Sodium 136 L (137-145) mmol/L Potassium 4.8 (3.5-5.1) mmol/L Chloride 99 (98-107) mmol/L Carbon Dioxide 27 (22-30) mmol/L BUN 47 H (9-20) mg/dL Creatinine 1.12 (0.66-1.25) mg/dL Glucose 138 H (74-99) mg/dL Calcium 9.2 (8.4-10.2) mg/dL Adrenal panel 02/04/22 Range/Units 06:53 Sodium 136 L (137-145) mmol/L Potassium 4.8 (3.5-5.1) mmol/L Chloride 99 (98-107) mmol/L Carbon Dioxide 27 (22-30) mmol/L BUN 47 H (9-20) mg/dL Creatinine 1.12 (0.66-1.25) mg/dL Glucose 138 H (74-99) mg/dL Calcium 9.2 (8.4-10.2) mg/dL - Imaging Chest x-ray: report reviewed, image reviewed CT scan - chest: report reviewed, image reviewed Assessment and Plan Assessment: 1. Acute hypoxic respiratory failure secondary to right lower lobe pneumonia and parapneumonic pleural effusion and acute exacerbation of COPD 2. Complex right pleural effusion, likely secondary to above, status post right thoracentesis and subsequent placement of right pleural pigtail catheter by interventional radiology 3. Influenza B infection 4. Acute on chronic hypoxic respiratory failure secondary to above, uses 2 L of nasal cannula at home at night 5. Diabetes mellitus type 2 6. Hypertension 7. Hyperlipidemia 8. Peripheral vascular disease, with history of AAA repair and right leg aneurysm repair with peripheral stenting 9. History of obstructive sleep apnea without home CPAP use 10. Remote history of nicotine dependence quit smoking 18 years ago Plan: The patient was seen and examined at his bedside on the cardiac stepdown unit. Discharge diagnostics review. His case was discussed in detail with Dr. Catrachito Saavedra from cardiothoracic surgery. Keep right pleural pigtail catheter and at this time and we will initiate treatment of alteplase/dornase pleural instillation. Treatment was discussed with the patient and he wishes to proceed with the treatment. Encourage use of incentive spirometry 10 times every hour while awake. Continue to monitor daily chest x-rays. Medical management and other comorbidities per primary care service and other consultants. More recommendations to follow based on patient's clinical course. Thank you Dr. Duncan for this consult and we look for to working with you in the care of this patient. I have personally seen and examined the patient, performed the documentation and the assessment and plan as written. 30 minutes spent on the visit . Yair Plaza NP-C Pt seen and evaluated with Call Center Nurse above. Agree with his assessment and plan. I spent a total of 30 minutes evaluating the patient and discussing the findings.
[2022-02-04 12:08] LABS: Glucose,Whole Blood 215 mg/dL (70-110)
[2022-02-04] MEDS: OSELTAMIVIR 60 MG/10 ML ORAL SYRINGE PO SCH ×2 (12:41→22:26)
[2022-02-04 16:38] LABS: Glucose,Whole Blood 110 mg/dL (70-110)
[2022-02-04] MEDS: HYDROcodone/APAP 7.5-325MG 1 EACH TAB PO PRN ×2 (17:25→22:26)
[2022-02-04 20:14] LABS: Glucose,Whole Blood 110 mg/dL (70-110)
[2022-02-04] MEDS: ATORVASTATIN 40 MG TAB PO SCH (22:27)
[2022-02-05 06:07] LABS: Glucose,Whole Blood 136 mg/dL (70-110)
[2022-02-05] MEDS: INSULIN ASPART (NovoLOG) 100 UNIT/ML VIAL SQ SCH ×3 (06:08→21:33)
[2022-02-05] MEDS: INSULIN DETEMIR (LEVEMIR) 100 UNIT/ML SYR SQ SCH (06:31)
--- NOTE | 2022-02-05 07:53 | XR ---
EXAMINATION TYPE: XR chest 1V portable DATE OF EXAM: 02/05/2022 7:46 AM COMPARISON: Chest radiograph from one day prior. TECHNIQUE: XR chest 1V portable Portable AP radiograph of the chest. CLINICAL INDICATION:Male, 81 years old with history of Right-sided loculated effusion; FINDINGS: Lungs/Pleura: Similar right loculated pleural effusion with associated atelectasis.. No evidence of l eft pneumothorax pleural effusion or focal consolidation. Pulmonary vascularity: Unremarkable. Heart/mediastinum: Cardiomediastinal silhouette is unremarkable. Musculoskeletal: No acute osseous pathology. Lines/Tubes: Right thoracotomy catheter pigtail with tip in appropriate position. No pneumothorax. IMPRESSION: Similar right pleural effusion with thoracotomy catheter. No pneumothorax.
[2022-02-05] MEDS: IPRATROPIUM-ALBUTEROL 3 ML NEB INHALATION SCH ×4 (07:55→21:38)
[2022-02-05] MEDS: SYMBICORT 160-4.5 MCG INHALER INHALATION SCH ×3 (07:55→23:17)
[2022-02-05] MEDS ORDERED: DORNASE ALFA 5 MG in SODIUM CHLORIDE 0.9% 50 ML IRRIGATION ONE (08:25)
[2022-02-05] MEDS ORDERED: ALTEPLASE 10 MG in SODIUM CHLORIDE 0.9% 50 ML IRRIGATION ONE (08:25)
--- NOTE | 2022-02-05 08:35 | P.PN ---
Subjective Progress Note Date: 02/05/22 Principal diagnosis: This is a 81-year-old gentleman who is followed by Dr. Javier Godinez on an outpatient basis for his primary care service. The patient also follows with Dr. ASHLI Jiang for his COPD management. 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 He presented here to the emergency department at [facility] on 01/29/2022 due to complaints of progressive shortness of breath over a one week period, pain to his right lower chest, and a productive cough with brownish colored phlegm. He denies any recent fever, chills, nausea, vomiting, diarrhea, constipation, hemoptysis, hematemesis, chest pressure, palpitations, presyncope or syncope. Laboratory results on admission showed a WBC count of 11.3, hemoglobin 13.1, hematocrit 41.8, platelets 389, PT 10.3, INR 0.9, PTT 23.4, plastic lactic acid 5.3, troponin less than 0.020, proBNP 598, sodium 135, potassium 4.9, CO2 18, BUN 67, creatinine 2.39, and glucose 281. A coronavirus PCR was completed which showed not detected, although an influenza type B PCR showed detected. A chest x-ray on admission showed some right pleural effusion and right lower lobe pneumonia. Subsequently, due to the patient's presenting symptoms and positive influenza type B PCR he was admitted for further evaluation and treatment. He is currently on Rocephin for antibiotic coverage and is also receiving Tamiflu. The patient developed a right-sided pleural effusion with repeat x-rays showing increasing right pleural effusion with some underlying atelectasis. On 02/02/2022 a right-sided thoracentesis was completed by Dr. Duncan with 700 mL of thick millie colored fluid drained. The pleural fluid cytology showed predominantly acute inflammatory cells consistent with empyema and no cytologically malignant cells were identified. On 02/03/[address] scanning of his chest was completed which showed a moderate borderline large size right pleural fluid collection slightly prominent lateral component with some septations inferiorly seen. It also demonstrated a thin-walled cyst with air- fluid level in the right lower lung. Due to the findings on the computed tomography scan of the chest interventional radiology was consulted and the patient underwent a placement of a right pleural pigtail catheter yesterday 02/03/2022. Subsequently, Dr. Catrachito Saavedra was consulted for further evaluation and treatment recommendations regarding the right pleural effusion. Status post day #2 placement of right pleural pigtail catheter, placed by interventional radiology. The patient was seen in follow-up today 02/05/2022 at his bedside on the cardiac stepdown unit. Currently the patient is lying in bed, is awake, alert, oriented 3 and is in no acute apparent distress. He denies any complaints of shortness of breath or pain at this time. The patient states that his pain is much better controlled today than it was yesterday. Oxygen saturation are 94% on 4 L nasal cannula. Right pleural pigtail catheter remains in place to low continuous wall suction -20 cm H2O. No air leak is present. Draining thin serous drainage with 160 mL output in the last 8 hours and 1590 mL output in the last 24 hours. Alteplase/dornase pleural instillation was instilled through the right pleural pigtail catheter yesterday. He remains afebrile the last 24 hours. Remote telemetry showing normal sinus rhythm heart rate 91 BPM. Chest x-ray report shows similar right pleural effusion with thoracotomy catheter and no pneumothorax. He remains on Rocephin for antibiotic coverage managed by primary care. Objective - Vital Signs Vital signs: Vital Signs Temp 98.1 F 02/05/22 04:00 Pulse 100 02/05/22 08:12 Resp 19 02/05/22 04:00 BP 137/83 02/05/22 04:00 Pulse Ox 94 L 02/05/22 04:00 FiO2 70 01/30/22 01:00 Intake & Output 02/04/22 02/05/22 02/05/22 18:59 06:59 18:59 Intake Total 260 150 Output Total 400 1890 Balance -140 -1740 Intake: IV 20 30 Invasive Line 3 20 20 Invasive Line 4 10 Oral 240 120 Output: Drainage 1590 Right Posterior Chest 1590 Urine 400 300 Other: Voiding Method Urinal Urinal # Voids 0 - Exam CONSTITUTIONAL: Sitting up in bed on the cardiac stepdown unit, appears comfortable, cooperative, no apparent acute distress. HEENT: Neck is supple, no JVD, no lymphadenopathy. RESPIRATORY: Lungs sounds essentially clear throughout, diminished to his bilateral bases, right greater than left. Respirations are symmetrical and nonlabored. Currently on 4 L nasal cannula with oxygen saturations 94%. Strong cough. CARDIOVASCULAR: Regular rhythm and rate. S1 and S2 present, negative for S3, gallop or murmur. GASTROINTESTINAL: Abdomen soft, nontender, nondistended. Active bowel sounds present 4 quadrants. Tolerating diet. Passing flatus. No guarding or rigidity. GENITOURINARY: Continues to void. 300 mL of urine output in the last 8 hours INTEGUMENTARY: Skin is warm and dry with no evidence of clubbing or cyanosis. Dressing to right chest pleural pigtail catheter clean, dry and intact. NEUROLOGIC: Cranial nerves II through XII intact. No focal deficits. MUSKULOSKELETAL: Able to move all extremities, strength equal bilaterally, generalized weakness. PSYCHIATRIC: Alert and oriented to person place and time, appropriate affect, intact judgment and insight. INVASIVE LINES AND TUBES: Right chest pigtail catheter in place, no air leak is present. Draining thin serosanguineous drainage with 160 mL output in the last 8 hours and 1590 mL output in the last 24 hours. - Allied health notes Allied health notes reviewed: nursing - Labs CBC & Chem 7: 01/31/22 03:44 02/04/22 06:53 Labs: Abnormal Lab Results - Last 24 Hours (Table) 02/04/22 02/05/22 Range/Units 12:07 06:06 POC Glucose (mg/dL) 215 H 136 H (70-110) mg/dL Microbiology - Last 24 Hours (Table) 01/30/22 16:08 Blood Culture - Preliminary Blood No Growth after 120 hours 02/02/22 09:30 Gram Stain - Preliminary Pleural Fluid Body Fluid Culture - Preliminary - Imaging and Cardiology Chest x-ray: report reviewed, image reviewed Assessment and Plan Assessment: 1. Acute hypoxic respiratory failure secondary to right lower lobe pneumonia and parapneumonic pleural effusion and acute exacerbation of COPD 2. Complex right pleural effusion, likely secondary to above, status post right thoracentesis and subsequent placement of right pleural pigtail catheter by interventional radiology 3. Influenza B infection 4. Acute on chronic hypoxic respiratory failure secondary to above, uses 2 L of nasal cannula at home at night, currently on 4 L nasal cannula 5. Diabetes mellitus type 2 6. Hypertension 7. Hyperlipidemia 8. Peripheral vascular disease, with history of AAA repair and right leg aneurysm repair with peripheral stenting 9. History of obstructive sleep apnea without home CPAP use 10. Remote history of nicotine dependence quit smoking 18 years ago Plan: 1. We will instill alteplase/dornase pleural instillation again today which will be his second dose through his right pleural pigtail catheter. 2. Encourage use of his incentive spirometry 10 times every hour while awake. 3. Wean oxygen as tolerated. Bronchodilator management per pulmonary/critical care medicine. 4. Medical management and antibiotic management per primary care service. 5. Continue to monitor daily chest x-rays. 6. GI and DVT prophylaxis. 7. Increase activity as tolerated. Out of bed for all meals. 8. More recommendations to follow based on patient's clinical course. Time with Patient: Greater than 30
--- NOTE | 2022-02-05 09:53 | P.PN ---
Subjective Patient is seen for follow-up for acute kidney injury. Renal function has improved with creatinine down to 1.12 from 2.39 on initial admission. Currently maintained on oral Lasix at 20 mg by mouth daily Patient tested positive for influenza B. No complaints today. Right chest tube remains in place Objective - Vital Signs Vital signs: Vital Signs Temp 98.1 F 02/05/22 04:00 Pulse 100 02/05/22 08:12 Resp 19 02/05/22 04:00 BP 137/83 02/05/22 04:00 Pulse Ox 94 L 02/05/22 04:00 FiO2 70 01/30/22 01:00 Intake & Output 02/04/22 02/05/22 02/05/22 18:59 06:59 18:59 Intake Total 260 150 118 Output Total 400 1890 Balance -140 -1740 118 Intake: IV 20 30 Invasive Line 3 20 20 Invasive Line 4 10 Oral 240 120 118 Output: Drainage 1590 Right Posterior Chest 1590 Urine 400 300 Other: Voiding Method Urinal Urinal # Voids 0 - Exam Patient is awake, comfortable not in any acute distress Examination of the heart S1 and S2 Examination of the lungs bilateral breath sounds are heard Abdomen is soft nontender Examination lower extremity shows no evidence of edema Chest tube present on the right side HOOKER ON exam grossly intact - Labs CBC & Chem 7: 01/31/22 03:44 02/04/22 06:53 Labs: Abnormal Lab Results - Last 24 Hours (Table) 02/04/22 02/05/22 Range/Units 12:07 06:06 POC Glucose (mg/dL) 215 H 136 H (70-110) mg/dL Microbiology - Last 24 Hours (Table) 02/02/22 09:30 Gram Stain - Preliminary Pleural Fluid Body Fluid Culture - Preliminary 01/30/22 16:08 Blood Culture - Preliminary Blood No Growth after 120 hours Assessment and Plan Assessment: 1. Acute kidney injury secondary to ATN secondary to infection and further worsened with the use of losartan and diuretic. Also component of urinary retention. Renal function improved. Creatinine stable at 1.1 today. No hydronephrosis noted on uls. 2. Chronic kidney disease stage IIIa with baseline creatinine near 1.3-1.4 secondary to nephrosclerosis and diabetic kidney disease. 3. Acute hypoxic respiratory failure. 4. Influenza B infection. 5. Diabetes mellitus. 6. Metabolic acidosis secondary to acute kidney injury and lactic acidosis. Resolved. 7. Hyponatremia secondary to acute kidney injury. Improved. 8. Urinary retention. Kenny catheter removed 02/02/2022. On Flomax. 9. Complex right pleural effusion status post thoracentesis and subsequent placement of right pleural pigtail catheter Plan: Continue with current dose of oral Lasix Repeat labs in a.m.
[2022-02-05] MEDS: FUROSEMIDE 20 MG TAB PO SCH (10:07)
[2022-02-05] MEDS: LIDOCAINE 5% PATCH TOPICAL SCH (10:07)
[2022-02-05] MEDS: allopurinoL 100 MG TAB PO SCH (10:07)
[2022-02-05] MEDS: CHOLECALCIFEROL 25 MCG (1000 IU) TABLET PO SCH (10:08)
[2022-02-05] MEDS: MAGNESIUM OXIDE 400 MG TAB PO SCH ×2 (10:08→21:33)
[2022-02-05] MEDS: METOPROLOL TARTRATE 25 MG TAB PO SCH ×2 (10:08→21:33)
[2022-02-05] MEDS: TAMSULOSIN 0.4 MG CAP.ER.24H PO SCH (10:08)
[2022-02-05] MEDS: FLUTICASONE 50MCG/SPRAY NASAL 16GM EA NOSTRIL SCH ×2 (10:13→21:34)
[2022-02-05 11:37] LABS: Glucose,Whole Blood 122 mg/dL (70-110)
--- NOTE | 2022-02-05 13:03 | P.PN ---
Subjective Progress Note Date: 02/05/22 Principal diagnosis: Acute right lower lobe pneumonia This is a 81-year-old white male with history of COPD, chronic hypoxic respiratory failure, maintained on oxygen at home, patient follows up with Dr. Aaron lopez for his underlying COPD. Patient was seen in the ER this morning with almost 2 weeks history of nonproductive cough, shortness of breath, wheezing, patient was in significant respiratory distress upon arrival to the ER, he was also complaining of right-sided flank pain. Patient denied any sick contacts. Denied any chest pain. Chest x-ray question a right lower lobe pneumonia is viral screening came back positive for influenza B. COVID-19 PCR was negative. Patient was noted to have a bit of leukocytosis with WBC count of 11.3 hemoglobin 13.1. ABG on 70% FiO2 showed a pO2 of 111 pCO2 38 pH of 7.3 to apparently this was done on BiPAP at 70% patient was also noted to have acute kidney injury with a BUN of 71 creatinine 2.70 and his blood sugar was 364 patient was admitted and this consult was initiated. Patient is now receiving Rocephin and Zithromax is also receiving bronchodilators in the form of DuoNeb and Symbicort. He is also on Tamiflu, and his IV fluid is at 75 mL per hour patient was seen by nephrology in consultation for his acute kidney injury renal ultrasound is pending. Reevaluated today on 01/31/22, patient is on 10 L high flow nasal cannula O2 sats is 94%, he is afebrile with a temp of 97 7 blood pressure is 123/70 heart rate is 82, patient feels better today compared to how he felt yesterday. Remains on Tamiflu remains on antibiotics and he remains on bronchodilators. Definite improvement compared to yesterday, nonetheless remains relatively ill. WBC count today is 15.9 hemoglobin 11.80 left lites are normal BUN is 71 creatinine 1.66, improving compared to admission creatinine Reevaluated today on 02/01/22, patient remains on6 L high flow nasal cannula, doing well, however his chest x-ray yesterday is showing worsening of right lower lobe pneumonia and now he is developing a pleural effusion. Clinically the patient is feeling great, I believe he is developing a parapneumonic pleural effusion which is too small to consider thoracentesis but I will repeat his chest x-ray and ultrasound in the morning and if the effusion is large enough may consider thoracentesis. In the meantime the patient is doing well clinically and feeling better. Reevaluated today on 02/02/22, patient seems to be doing fairly well, no major issues over the last 24 hours, chest x-ray and ultrasound are showing worsening of the pneumonia and the pleural effusion, hence I went ahead and recommended a diagnostic and therapeutic right-sided pleural effusion thoracentesis. This was done, and I was able to drain 700 mL of fluid from the right pleural space, and fluid was sent for different diagnostic studies. Patient remains on antibiotics for right lower lobe pneumonia and he received a full course of Tamiflu for his influenza type B infection as noted by positive PCR Reevaluated today on 02/03/22, patient is basically about the same, his CT of the chest is showing lateral pleural effusion that seems to be possibly loculated at the bases, and it would be difficult for me to drain the fluid hence am recommending ultrasound-guided thoracentesis to be done by radiology, and the patient may even require a pigtail catheter placement if the effusion does not completely resolve with thoracentesis. Yesterday I was able to drain 700 mL which is another pocket of pleural effusion from the right base posteriorly. This fluid on the CT of the chest seems to be lateral and seems to be relatively large in size. The fluid I drained is clearly exudative in nature with elevated protein and elevated LDH and low glucose of 31, malignancy is not entirely ruled out, but felt to be less likely. Patient remains on antibiotics for his pneumonia. Reevaluated today on 02/04/22, patient remains on the regular medical floor, r hayden on few liters nasal cannula,/4 L, O2 sats is 98%, patient seems to be doing well, he underwent pigtail catheter placement yesterday for his loculated pleural effusion, and so far 700 mL of fluid had been drained, chest x-ray continues to show some loculation on the pleural effusion and I'm recommending thoracic surgery to evaluate for possible alteplase infusion into the pleural space. Cultures on the pleural effusion are pending, however the fluid is basically exudative in nature, and it is most likely parapneumonic although malignancy is not entirely ruled out but felt to be less likely. Reevaluated today on 02/05/22, patient is feeling better, breathing easier, he is on 4 L nasal cannula with O2 sats of 94%. He denies being short of breath, his pigtail catheter remains on low continuous suction -20 cm, no air leak present, continues to drain serous drainage, 160 mL in the last 8 hours, 1590 in the last 24 hours. Patient had alteplase instilled yesterday. Patient is doing overall much better, cultures from the pleural effusion are pending patient remains on Rocephin and again overall the patient is improving chest x-ray showing significant improvement in his loculated pleural effusion Objective - Vital Signs Vital signs: Vital Signs Temp 98.1 F 02/05/22 04:00 Pulse 96 02/05/22 11:35 Resp 19 02/05/22 04:00 BP 137/83 02/05/22 04:00 Pulse Ox 94 L 02/05/22 04:00 FiO2 70 01/30/22 01:00 Intake & Output 02/04/22 02/05/22 02/05/22 18:59 06:59 18:59 Intake Total 260 150 118 Output Total 400 1890 Balance -140 -1740 118 Intake: IV 20 30 Invasive Line 3 20 20 Invasive Line 4 10 Oral 240 120 118 Output: Drainage 1590 Right Posterior Chest 1590 Urine 400 300 Other: Voiding Method Urinal Urinal # Voids 0 - Exam Physical Exam: Revealed a 81-year-old white male in no distress, remains on 4 L nasal cannula HEENT:[Neck is supple.] [No neck masses.] [No thyromegaly.] [No JVD.] Chest: [Minimal crackles at the right base no rhonchi no wheezes, right-sided pi gtail catheter is noted connected to Pleur-evac, Cardiac Exam: [Normal S1 and S2, no S3 gallop, no murmur.] Abdomen: [Soft, nontender, no megaly, no rebound, no guarding, normal bowel sounds.] Extremities: [No clubbing, no edema, no cyanosis.] Neurological Exam: [No focal neurologic deficit.] Alert and oriented 3 Psychiatric: Normal mood affect and normal mental status examination. Skin: No rashes - Labs CBC & Chem 7: 01/31/22 03:44 02/04/22 06:53 Labs: Abnormal Lab Results - Last 24 Hours (Table) 02/05/22 02/05/22 Range/Units 06:06 11:35 POC Glucose (mg/dL) 136 H 122 H (70-110) mg/dL Microbiology - Last 24 Hours (Table) 02/02/22 09:30 Gram Stain - Preliminary Pleural Fluid Body Fluid Culture - Preliminary 01/30/22 16:08 Blood Culture - Preliminary Blood No Growth after 120 hours Assessment and Plan Assessment: Impression: Acute hypoxic respiratory failure secondary to right lower lobe pneumonia and parapneumonic pleural effusion. And acute exacerbation of COPD Acute community-acquired pneumonia, mostly involving the right lower lobe, associated with a parapneumonic effusion Status post right sided thoracentesis drained 700 mL of exudative pleural effusion Status post pigtail catheter placement since the fluid was loculated, and even postthoracentesis continued to have some loculation. Hence pigtail catheter was placed by interventional radiology and the patient has been receiving alteplase instillation in the pleural space. Influenza B infection Acute exacerbation of COPD Acute on chronic hypoxic respiratory failure secondary to above Type 2 diabetes Dyslipidemia Benign essential hypertension Recommendation: continue oxygen , titrate accordingly Continue cefepime, cultures are pending from the pleural effusion Continue pigtail catheter to Pleur-evac drainage and suction Continue bronchodilators, including Symbicort Consider removing the pigtail catheter in the next 24-48 hours, depending on the final cultures and depending on the follow-up chest x-ray and maybe CT of the chest We will continue to follow. Time with Patient: Less than 30
[2022-02-05] MEDS: HYDROcodone/APAP 7.5-325MG 1 EACH TAB PO PRN ×2 (15:59→21:33)
[2022-02-05 16:26] LABS: Glucose,Whole Blood 131 mg/dL (70-110)
--- NOTE | 2022-02-05 19:43 | XR ---
EXAMINATION TYPE: XR chest 1V portable DATE OF EXAM: 02/05/2022 COMPARISON: Today HISTORY: Pleural effusion. Short of breath TECHNIQUE: FINDINGS: There is blunting right costophrenic angle. There is infiltrate right lung base. No heart f ailure seen. Heart size is fairly normal. Left lung is clear. There are chest leads. IMPRESSION: Right pleural effusion and right lower lobe pneumonia are not significantly different matty n exam 12 hours ago.
[2022-02-05 21:02] LABS: Glucose,Whole Blood 164 mg/dL (70-110)
[2022-02-05] MEDS: ATORVASTATIN 40 MG TAB PO SCH (21:33)
[2022-02-06 06:03] LABS: Glucose,Whole Blood 81 mg/dL (70-110)
[2022-02-06] MEDS: INSULIN ASPART (NovoLOG) 100 UNIT/ML VIAL SQ SCH ×4 (06:35→20:48)
[2022-02-06] MEDS: HYDROcodone/APAP 7.5-325MG 1 EACH TAB PO PRN ×3 (06:46→20:54)
--- NOTE | 2022-02-06 07:02 | XR ---
EXAMINATION TYPE: XR chest 1V portable DATE OF EXAM: 02/06/2022 6:23 AM COMPARISON: Chest radiograph from one day prior. TECHNIQUE: XR chest 1V portable Portable AP radiograph of the chest. CLINICAL INDICATION:Male, 81 years old with history of Right-sided loculated effusion; FINDINGS: Lungs/Pleura: Similar blunting of the right costophrenic angle. There is associated atelectasis. Righ t pleural effusion extends along the right pleural surface. Pulmonary vascularity: Unremarkable. Heart/mediastinum: Cardiomediastinal silhouette is unremarkable. There is rightward shift of the medi astinum. Musculoskeletal: No acute osseous pathology. Other findings: None Lines/Tubes: Right thoracotomy tube is present without evidence of pneumothorax. IMPRESSION: 1. Similar loculated right pleural effusion with rightward shift of the mediastinum which could be p artially due to projection. 2. Right thoracotomy tube without evidence of pneumothorax.
[2022-02-06] MEDS: IPRATROPIUM-ALBUTEROL 3 ML NEB INHALATION SCH ×4 (07:29→21:18)
[2022-02-06] MEDS: SYMBICORT 160-4.5 MCG INHALER INHALATION SCH ×2 (07:29→21:18)
--- NOTE | 2022-02-06 09:16 | P.PN ---
Subjective Progress Note Date: 02/06/22 Principal diagnosis: This is a 81-year-old gentleman who is followed by Dr. Javier Godinez on an outpatient basis for his primary care service. The patient also follows with Dr. ASHLI Jiang for his COPD management. 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 He presented here to the emergency department at [facility] on 01/29/2022 due to complaints of progressive shortness of breath over a one week period, pain to his right lower chest, and a productive cough with brownish colored phlegm. He denies any recent fever, chills, nausea, vomiting, diarrhea, constipation, hemoptysis, hematemesis, chest pressure, palpitations, presyncope or syncope. Laboratory results on admission showed a WBC count of 11.3, hemoglobin 13.1, hematocrit 41.8, platelets 389, PT 10.3, INR 0.9, PTT 23.4, plastic lactic acid 5.3, troponin less than 0.020, proBNP 598, sodium 135, potassium 4.9, CO2 18, BUN 67, creatinine 2.39, and glucose 281. A coronavirus PCR was completed which showed not detected, although an influenza type B PCR showed detected. A chest x-ray on admission showed some right pleural effusion and right lower lobe pneumonia. Subsequently, due to the patient's presenting symptoms and positive influenza type B PCR he was admitted for further evaluation and treatment. He is currently on Rocephin for antibiotic coverage and is also receiving Tamiflu. The patient developed a right-sided pleural effusion with repeat x-rays showing increasing right pleural effusion with some underlying atelectasis. On 02/02/2022 a right-sided thoracentesis was completed by Dr. Duncan with 700 mL of thick millie colored fluid drained. The pleural fluid cytology showed predominantly acute inflammatory cells consistent with empyema and no cytologically malignant cells were identified. On 02/03/[address] scanning of his chest was completed which showed a moderate borderline large size right pleural fluid collection slightly prominent lateral component with some septations inferiorly seen. It also demonstrated a thin-walled cyst with air- fluid level in the right lower lung. Due to the findings on the computed tomography scan of the chest interventional radiology was consulted and the patient underwent a placement of a right pleural pigtail catheter yesterday 02/03/2022. Subsequently, Dr. Catrachito Saavedra was consulted for further evaluation and treatment recommendations regarding the right pleural effusion. Status post day #3 placement of right pleural pigtail catheter, placed by interventional radiology. The patient was seen in follow-up today 02/06/2022 at his bedside on the cardiac stepdown unit. The patient denies any complaints of shortness of breath or pain at this time. He reports he continues to have a productive cough with coughing up thao thick sputum. Currently he is lying in bed, is awake, alert, oriented 3 and is in no acute apparent distress. Oxygen saturation are 94% on 4 L nasal cannula and he is achieving 1500 mL on his incentive spirometry with enc ouragement. Right chest pigtail pleural catheter remains in place and connected to low continuous wall suction -20 cm H2O. No air leak is present. Draining thin serosanguineous drainage with 200 mL output in 24 hours. He did receive a dose of alteplase/dornase pleural instillation yesterday which was his second total dose. Pleural fluid culture showed no growth after 4 days. Objective - Vital Signs Vital signs: Vital Signs Temp 98.3 F 02/06/22 04:00 Pulse 88 02/06/22 07:31 Resp 18 02/06/22 04:00 BP 101/73 02/06/22 04:00 Pulse Ox 94 L 02/06/22 07:31 FiO2 70 01/30/22 01:00 Intake & Output 02/05/22 02/06/22 02/06/22 18:59 06:59 18:59 Intake Total 118 Output Total 498 Balance -380 Intake: Oral 118 Output: Drainage 173 Right Posterior Chest 173 Urine 325 Other: Voiding Method Urinal Urinal # Voids 2 - Exam CONSTITUTIONAL: Sitting up in bed on the cardiac stepdown unit, appears comfortable, cooperative, no apparent acute distress. HEENT: Neck is supple, no JVD, no lymphadenopathy. RESPIRATORY: Lungs sounds essentially clear throughout, diminished to his bilateral bases, right greater than left. Respirations are symmetrical and nonlabored. Currently on 4 L nasal cannula with oxygen saturations 94%. Strong cough. CARDIOVASCULAR: Regular rhythm and rate. S1 and S2 present, negative for S3, gallop or murmur. GASTROINTESTINAL: Abdomen soft, nontender, nondistended. Active bowel sounds present 4 quadrants. Tolerating diet. Passing flatus. No guarding or rigid ity. GENITOURINARY: Continues to void. INTEGUMENTARY: Skin is warm and dry with no evidence of clubbing or cyanosis. Dressing to right chest pleural pigtail catheter clean, dry and intact with some scant serosanguineous drainage present. NEUROLOGIC: Cranial nerves II through XII intact. No focal deficits. MUSKULOSKELETAL: Able to move all extremities, strength equal bilaterally, generalized weakness. PSYCHIATRIC: Alert and oriented to person place and time, appropriate affect, intact judgment and insight. INVASIVE LINES AND TUBES: Right chest pigtail catheter in place, no air leak is present. Draining thin serosanguineous drainage with 200 mL output in the last 24 hours. - Allied health notes Allied health notes reviewed: nursing - Labs CBC & Chem 7: 01/31/22 03:44 02/04/22 06:53 Labs: Abnormal Lab Results - Last 24 Hours (Table) 02/05/22 02/05/22 02/05/22 Range/Units 11:35 16:24 21:01 POC Glucose (mg/dL) 122 H 131 H 164 H (70-110) mg/dL Microbiology - Last 24 Hours (Table) 02/02/22 09:30 Gram Stain - Final Pleural Fluid Body Fluid Culture - Final 01/30/22 16:08 Blood Culture - Final Blood No Growth after 144 hours - Imaging and Cardiology Chest x-ray: report reviewed, image reviewed Assessment and Plan Assessment: 1. Acute hypoxic respiratory failure secondary to right lower lobe pneumonia and parapneumonic pleural effusion and acute exacerbation of COPD 2. Complex right pleural effusion, likely secondary to above, status post right thoracentesis and subsequent placement of right pleural pigtail catheter by interventional radiology 3. Influenza B infection 4. Acute on chronic hypoxic respiratory failure secondary to above, uses 2 L of nasal cannula at home at night, currently on 4 L nasal cannula 5. Diabetes mellitus type 2 6. Hypertension 7. Hyperlipidemia 8. Peripheral vascular disease, with history of AAA repair and right leg aneurysm repair with peripheral stenting 9. History of obstructive sleep apnea without home CPAP use 10. Remote history of nicotine dependence quit smoking 18 years ago Plan: 1. We will instill alteplase/dornase pleural instillation again today which will be his third dose through his right pleural pigtail catheter. 2. Encourage use of his incentive spirometry 10 times every hour while awake. 3. Wean oxygen as tolerated. Bronchodilator management per pulmonary/critical care medicine. 4. Medical management and antibiotic management per primary care service. 5. Continue to monitor daily chest x-rays. 6. GI and DVT prophylaxis. 7. Increase activity as tolerated. Out of bed for all meals. 8. More recommendations to follow based on patient's clinical course. Time with Patient: Greater than 30
[2022-02-06] MEDS: CHOLECALCIFEROL 25 MCG (1000 IU) TABLET PO SCH (09:25)
[2022-02-06] MEDS: INSULIN DETEMIR (LEVEMIR) 100 UNIT/ML SYR SQ SCH (09:25)
[2022-02-06] MEDS: TAMSULOSIN 0.4 MG CAP.ER.24H PO SCH (09:25)
[2022-02-06] MEDS: FUROSEMIDE 20 MG TAB PO SCH (09:26)
[2022-02-06] MEDS: allopurinoL 100 MG TAB PO SCH (09:27)
[2022-02-06] MEDS: METOPROLOL TARTRATE 25 MG TAB PO SCH ×2 (09:27→20:54)
[2022-02-06] MEDS: MAGNESIUM OXIDE 400 MG TAB PO SCH ×2 (09:27→20:54)
[2022-02-06] MEDS: FLUTICASONE 50MCG/SPRAY NASAL 16GM EA NOSTRIL SCH ×2 (09:28→20:56)
[2022-02-06] MEDS: LIDOCAINE 5% PATCH TOPICAL SCH (09:31)
[2022-02-06] MEDS ORDERED: ALTEPLASE 10 MG in SODIUM CHLORIDE 0.9% 50 ML IRRIGATION ONE (10:00)
[2022-02-06] MEDS ORDERED: DORNASE ALFA 5 MG in SODIUM CHLORIDE 0.9% 50 ML IRRIGATION ONE (10:00)
[2022-02-06 10:30] LABS: Calcium 9.1 mg/dL (8.4-10.2); Potassium 4.8 mmol/L (3.5-5.1)
--- NOTE | 2022-02-06 10:55 | P.PN ---
Subjective Patient is seen for follow-up for acute kidney injury. Renal function has improved with creatinine down to 1.12 from 2.39 on initial admission. Currently maintained on oral Lasix at 20 mg by mouth daily Patient tested positive for influenza B. No complaints today. Right chest tube remains in place. Being followed by cardiothoracic surgery Objective - Vital Signs Vital signs: Vital Signs Temp 97.4 F L 02/06/22 08:00 Pulse 95 02/06/22 08:00 Resp 18 02/06/22 08:00 BP 91/55 02/06/22 08:00 Pulse Ox 97 02/06/22 08:00 FiO2 70 01/30/22 01:00 Intake & Output 02/05/22 02/06/22 02/06/22 18:59 06:59 18:59 Intake Total 118 118 Output Total 498 Balance -380 118 Intake: Oral 118 118 Output: Drainage 173 Right Posterior Chest 173 Urine 325 Other: Voiding Method Urinal Urinal Urinal # Voids 2 - Exam Patient is awake, comfortable not in any acute distress Examination of the heart S1 and S2 Examination of the lungs bilateral breath sounds are heard Abdomen is soft nontender Examination lower extremity shows no evidence of edema Chest tube present on the right side NURSE ANESTHETIST exam grossly intact - Labs CBC & Chem 7: 01/31/22 03:44 02/06/22 09:52 Labs: Abnormal Lab Results - Last 24 Hours (Table) 02/05/22 02/05/22 02/05/22 Range/Units 11:35 16:24 21:01 Sodium (137-145) mmol/L Chloride (98-107) mmol/L BUN (9-20) mg/dL Creatinine (0.66-1.25) mg/dL Glucose (74-99) mg/dL POC Glucose (mg/dL) 122 H 131 H 164 H (70-110) mg/dL 02/06/22 Range/Units 09:52 Sodium 131 L (137-145) mmol/L Chloride 93 L (98-107) mmol/L BUN 54 H (9-20) mg/dL Creatinine 1.33 H (0.66-1.25) mg/dL Glucose 164 H (74-99) mg/dL POC Glucose (mg/dL) (70-110) mg/dL Microbiology - Last 24 Hours (Table) 02/02/22 09:30 Gram Stain - Final Pleural Fluid Body Fluid Culture - Final 01/30/22 16:08 Blood Culture - Final Blood No Growth after 144 hours Assessment and Plan Assessment: 1. Acute kidney injury secondary to ATN secondary to infection and further worsened with the use of losartan and diuretic. Also component of urinary retention. Renal function improved. Creatinine stable at 1.1 today. No hydronephrosis noted on uls. 2. Chronic kidney disease stage IIIa with baseline creatinine near 1.3-1.4 secondary to nephrosclerosis and diabetic kidney disease. 3. Acute hypoxic respiratory failure. 4. Influenza B infection. 5. Diabetes mellitus. 6. Metabolic acidosis secondary to acute kidney injury and lactic acidosis. Resolved. 7. Hyponatremia secondary to acute kidney injury. Improved. 8. Urinary retention. Kenny catheter removed 02/02/2022. On Flomax. 9. Complex right pleural effusion status post thoracentesis and subsequent placement of right pleural pigtail catheter Plan: Continue with current dose of oral Lasix Repeat labs in a.m.
[2022-02-06 11:40] LABS: Glucose,Whole Blood 223 mg/dL (70-110)
--- NOTE | 2022-02-06 13:17 | P.PN ---
Subjective Progress Note Date: 02/06/22 Principal diagnosis: Pneumonia with parapneumonic effusion. Reevaluated today on 02/03/22, patient is basically about the same, his CT of the chest is showing lateral pleural effusion that seems to be possibly loculated at the bases, and it would be difficult for me to drain the fluid hence am recommending ultrasound-guided thoracentesis to be done by radiology, and the patient may even require a pigtail catheter placement if the effusion does not completely resolve with thoracentesis. Yesterday I was able to drain 700 mL which is another pocket of pleural effusion from the right base posteriorly. This fluid on the CT of the chest seems to be lateral and seems to be relatively large in size. The fluid I drained is clearly exudative in nature with elevated protein and elevated LDH and low glucose of 31, malignancy is not entirely ruled out, but felt to be less likely. Patient remains on antibiotics for his pneumonia. Reevaluated today on 02/04/22, patient remains on the regular medical floor, remains on few liters nasal cannula,/4 L, O2 sats is 98%, patient seems to be doing well, he underwent pigtail catheter placement yesterday for his loculated pleural effusion, and so far 700 mL of fluid had been drained, chest x-ray continues to show some loculation on the pleural effusion and I'm recommending thoracic surgery to evaluate for possible alteplase infusion into the pleural space. Cultures on the pleural effusion are pending, however the fluid is ba sically exudative in nature, and it is most likely parapneumonic although malignancy is not entirely ruled out but felt to be less likely. Reevaluated today on 02/05/22, patient is feeling better, breathing easier, he is on 4 L nasal cannula with O2 sats of 94%. He denies being short of breath, his pigtail catheter remains on low continuous suction -20 cm, no air leak present, continues to drain serous drainage, 160 mL in the last 8 hours, 1590 in the last 24 hours. Patient had alteplase instilled yesterday. Patient is doing overall much better, cultures from the pleural effusion are pending patient remains on Rocephin and again overall the patient is improving chest x-ray showing signifi cant improvement in his loculated pleural effusion Recent dated 02/06/2022. The patient is again seen today in room 358. He is resting comfortably. He's on 4 L of oxygen. Not receiving any IV fluids. The patient will get another dose of TPA, inserted into the pigtail catheter. He has 200 mL out yesterday. Chest x-ray will be ordered for the morning. He seems to be resting comfortably. Labs today include a sodium 131, potassium 4.8, chlorides 93, CO2 28, BUN 54, with a creatinine of 1.33. Glucose 223. Chest x-ray shows a similar loculated right-sided pleural effusion, with rightward shift of the mediastinum. No evidence of pneumothorax is seen. Pleural fluid analysis is as far negative or pending. The patient continues on Rocephin. Objective - Vital Signs Vital signs: Vital Signs Temp 97.5 F L 02/06/22 12:00 Pulse 104 H 02/06/22 12:00 Resp 18 02/06/22 12:00 BP 110/64 02/06/22 12:00 Pulse Ox 96 02/06/22 12:00 FiO2 70 01/30/22 01:00 Intake & Output 02/05/22 02/06/22 02/06/22 18:59 06:59 18:59 Intake Total 118 118 Output Total 498 Balance -380 118 Intake: Oral 118 118 Output: Drainage 173 Right Posterior Chest 173 Urine 325 Other: Voiding Method Urinal Urinal Urinal # Voids 2 - Exam No acute distress, oriented 3. No respiratory distress. Currently on 4 L of oxygen. HEENT examination is grossly unremarkable. Neck supple. Full range of motion. No adenopathy thyromegaly or neck vein distention. Cardiovascular examination reveals regular rhythm rate. S1-S2 normal. No S3 or S4. No discernible murmur noted. Heart rate 100 bpm. Lungs reveal diminished breath sounds on the right. Pigtail catheter on the right noted. No wheezes, or crackles. Saturations are 96%. Abdomen soft bowel sounds are heard. No masses or tenderness. Extremities are intact. No cyanosis clubbing or edema. Skin is without rash or lesion. Neurologic examination is brief but nonfocal. - Labs CBC & Chem 7: 01/31/22 03:44 02/06/22 09:52 Labs: Abnormal Lab Results - Last 24 Hours (Table) 02/05/22 02/05/22 02/06/22 Range/Units 16:24 21:01 09:52 Sodium 131 L (137-145) mmol/L Chloride 93 L (98-107) mmol/L BUN 54 H (9-20) mg/dL Creatinine 1.33 H (0.66-1.25) mg/dL Glucose 164 H (74-99) mg/dL POC Glucose (mg/dL) 131 H 164 H (70-110) mg/dL 02/06/22 Range/Units 11:38 Sodium (137-145) mmol/L Chloride (98-107) mmol/L BUN (9-20) mg/dL Creatinine (0.66-1.25) mg/dL Glucose (74-99) mg/dL POC Glucose (mg/dL) 223 H (70-110) mg/dL Microbiology - Last 24 Hours (Table) 02/02/22 09:30 Gram Stain - Final Pleural Fluid Body Fluid Culture - Final 01/30/22 16:08 Blood Culture - Final Blood No Growth after 144 hours Assessment and Plan Assessment: Acute hypoxemic respiratory failure secondary to right lower lobe pneumonia complicated by parapneumonic right-sided effusion, status post pigtail catheter placement. Acute kidney acquired pneumonia. Status post right-sided thoracentesis, with fluid analysis suggesting an exudate. Status post pigtail catheter placement, with instillation of alteplase, and alpha dornase. Influenza B infection. Acute exacerbation of COPD. Type 2 diabetes mellitus. Hyperlipidemia. Benign essential hypertension. Plan: Plan dated 02/06/2022. Thoracic surgery will instill alteplase, and alpha dornase, into the patient's right-sided pigtail catheter. Out, over the last 24 hours. His chest x-ray shows a relatively smaller right-sided effusion. The patient remains on Rocephin. Patient continues on oxygen therapy, as well as bronchodilators, and Symbicort. No additional recommendations are made. Labs, x-rays and medications are reviewed. Prognosis is guarded. We are hoping the patient does not require a thoracotomy and decortication. Time with Patient: Less than 30
[2022-02-06 14:03] VITALS: BMI 24.3
[2022-02-06 16:47] LABS: Glucose,Whole Blood 259 mg/dL (70-110)
[2022-02-06 20:48] LABS: Glucose,Whole Blood 147 mg/dL (70-110)
[2022-02-06] MEDS: ATORVASTATIN 40 MG TAB PO SCH (20:54)
[2022-02-07] MEDS: HYDROcodone/APAP 7.5-325MG 1 EACH TAB PO PRN ×3 (03:16→17:31)
[2022-02-07 06:08] LABS: Glucose,Whole Blood 94 mg/dL (70-110)
[2022-02-07] MEDS: INSULIN ASPART (NovoLOG) 100 UNIT/ML VIAL SQ SCH ×4 (06:12→21:20)
[2022-02-07] MEDS: INSULIN DETEMIR (LEVEMIR) 100 UNIT/ML SYR SQ SCH (06:38)
--- NOTE | 2022-02-07 06:52 | P.CONS ---
History of Present Illness - Reason for Consult Consult date: 02/06/22 - History of Present Illness Patient is a 81-year male with a past medical history significant for COPD on home O2 2 L nasal cannula hypertension hyperlipidemia type for diabetes mellitus and mild peripheral vascular disease chronic renal insufficiency presenting to the hospital 8 days ago on 01/29/2022 for evaluation of increasing shortness of breath that have been getting worse for about a week patient also complaining of right lower chest pain described the pain to be more of a dull aching to sharp 5-6 out of 10 and no radiation shortness of breath on exertion and even at rest patient also have a cough moderate intensity bring up some brownish sputum patient on presentation to the hospital was running a low-grade fever of 99.8 F no fever have been recorded since then patient on admission to the hospital have white count of 11 point 3 repeat was 15.9 on 01/31/2022 and no CBC has been done since then did have elevated BUN and creatinine elevated lactic acid 2.2 admission no enzymes are normal procalcitonin was 12.80 patient did have negative COVID test influenza B was positive chest x-ray some right pleural effusion right lower lobe consolidation patient has been treated with the Tamiflu with the patient is already completed and Rocephin patient did have a thoracocentesis completed on 02/02/2022 with removal of 700 mL of fluid cultures has been negative he did have a CT of the chest on 02/03/2022 moderate to large size right pleural effusion some septation inferiorly are seen and the patient is status post right lateral chest tube placement ultrasound-guided by interventional radiology on 02/03/2022, admission blood cultures negative pleural fluid cultures obtained on 02/02/2022 has been negative so far infectious disease was consulted today that is 02/06/2022 after the patient has been in the hospital for 8 days, patient is currently breathing slightly comfortably right-sided chest pain has slightly decreased in intensity continue to have a cough which has decreased intensity no nausea no vomiting no abdominal pain no diarrhea Past Medical History Past Medical History: Chest Pain / Angina, COPD, Diabetes Mellitus, Hyperlipidemia, Hypertension, Myocardial Infarction (HI), Pneumonia, Renal Disease, Skin Disorder Additional Past Medical History / Comment(s): Stage 2 kidney failure, gout Last Myocardial Infarction Date:: 1990 History of Any Multi-Drug Resistant Organisms: None Reported Past Surgical History: Heart Catheterization, Joint Replacement Additional Past Surgical History / Comment(s): AAA repair, rt leg aneursym with 2 stents, sarah cataracts, neck surgery, lt hip replacement Past Anesthesia/Blood Transfusion Reactions: Previous Problems w/ Anesthesia, Motion Sickness Additional Past Anesthesia/Blood Transfusion Reaction / Comm: previous difficult y with general anesthesia due to COPD and difficulty breathing Past Psychological History: No Psychological Hx Reported Smoking Status: Former smoker (Quit Smoking 18 years ago) Past Alcohol Use History: None Reported Past Drug Use History: None Reported - Past Family History Father Additional Family Medical History / Comment(s): AT AGE 63 MASSIVE HI Mother Family Medical History: No Reported History Additional Family Medical History / Comment(s): AGE 42 UNCONTROLLED HIGH BLOOD PRESSURE/ MIGRAINES Medications and Allergies Home Medications Medication Instructions Recorded Confirmed Type Albuterol Inhaler [Ventolin Hfa 1 puff INHALATION RT-Q6H PRN 01/28/14 01/30/22 History Inhaler] Fluticasone Propionate [Flonase] 1 spr EA NOSTRIL BID 01/28/14 01/30/22 History metFORMIN HCL [Glucophage] 500 mg PO BID 01/28/14 01/30/22 History Albuterol Nebulized [Ventolin 3 ml INHALATION RT-QID PRN 05/29/14 01/30/22 His tory Nebulized] Losartan Potassium 100 mg PO DAILY 02/22/16 01/30/22 History Alogliptin Benzoate [Alogliptin] 12.5 mg PO DAILY 03/17/19 01/30/22 History Tiotropium [place] [Spiriva 2 puff INHALATION RT-DAILY 03/17/19 01/30/22 History Respimat] Atorvastatin Calcium [Lipitor] 40 mg PO HS 01/30/22 01/30/22 History Carboxymethylcellulose Sodium 1 drop BOTH EYES DAILY PRN 01/30/22 01/30/22 History Cholecalciferol [Vitamin D3 (25 25 mcg PO DAILY 01/30/22 01/30/22 History Mcg = 1000 Iu)] Fluticasone Propion/Salmeterol 1 puff INHALATION RT-BID 01/30/22 01/30/22 History [Advair 500-50 Diskus] Lidocaine 5% Patch [Lidoderm 5% 1 patch TRANSDERM DAILY 01/30/22 01/30/22 History Patch] Magnesium Oxide 420mg 420 mg PO BID 01/30/22 01/30/22 History Metoprolol Tartrate [Lopressor] 75 mg PO BID 01/30/22 01/30/22 History allopurinoL [Zyloprim] 100 mg PO DAILY 01/30/22 01/30/22 History hydroCHLOROthiazide [Hydrodiuril] 25 mg PO Q48H 01/30/22 01/30/22 History Allergies Allergy/AdvReac Type Severity Reaction Status Date / Time enalaprilat [From Vasotec] Allergy Per [facility] Verified 01/30/22 09:09 records tramadol AdvReac Hallucinati Verified 01/30/22 09:09 ons Physical Exam Vitals: Vital Signs Temp Pulse Pulse Resp BP Pulse Ox 02/06/22 16:00 97.6 F 82 18 92/59 96 02/06/22 15:24 106 H 02/06/22 15:18 104 H 02/06/22 14:00 85 20 02/06/22 12:00 97.5 F L 104 H 18 110/64 96 02/06/22 11:27 88 02/06/22 11:17 80 02/06/22 08:00 97.4 F L 95 18 91/55 97 02/06/22 07:40 92 02/06/22 07:31 88 94 L 02/06/22 04:00 98.3 F 90 18 101/73 95 02/06/22 02:00 83 20 02/06/22 00:00 98.3 F 83 20 94/61 93 L 02/05/22 20:00 98.1 F 94 19 100/71 96 Intake and Output 02/06/22 02/06/22 02/06/22 06:59 14:59 22:59 Intake Total 596 Output Total 30 Balance 596 -30 Intake: Oral 596 Output: Chest Tube Drainage 30 right posterior chest 30 Other: Voiding Method Urinal Urinal # Voids 2 Weight 81.193 kg Results CBC & Chem 7: 01/31/22 03:44 02/06/22 09:52 Labs: Abnormal Lab Results - Last 24 Hours (Table) 02/05/22 02/06/22 02/06/22 Range/Units 21:01 09:52 11:38 Sodium 131 L (137-145) mmol/L Chloride 93 L (98-107) mmol/L BUN 54 H (9-20) mg/dL Creatinine 1.33 H (0.66-1.25) mg/dL Glucose 164 H (74-99) mg/dL POC Glucose (mg/dL) 164 H 223 H (70-110) mg/dL 02/06/22 Range/Units 16:46 Sodium (137-145) mmol/L Chloride (98-107) mmol/L BUN (9-20) mg/dL Creatinine (0.66-1.25) mg/dL Glucose (74-99) mg/dL POC Glucose (mg/dL) 259 H (70-110) mg/dL Microbiology - Last 24 Hours (Table) 02/02/22 09:30 Gram Stain - Final Pleural Fluid Body Fluid Culture - Final 01/30/22 16:08 Blood Culture - Final Blood No Growth after 144 hours Assessment and Plan Plan: 1patient with a positive influenza B on admission about 8 days ago for the patient has completed his Tamiflu. 2right-sided pneumonia and parapneumonic effusion in this patient who is status post thoracocentesis followed by chest tube placement pleural fluid culture has been negative so far more likely as the patient was on antibiotic for 5 days before the procedure was completed. 3we will increase the dose of Rocephin to 2 g daily. 4we will recheck inflammatory markers with a.m. lab. We will follow on clinical condition and cultures to further adjust medication if needed Thank you for this consultation will follow this patient along with you Time with Patient: Greater than 30
--- NOTE | 2022-02-07 06:57 | XR ---
EXAMINATION TYPE: XR chest 1V portable DATE OF EXAM: 02/07/2022 CLINICAL HISTORY: Difficulty breathing and loculated pleural effusion progress study. TECHNIQUE: Single AP portable upright view of the chest is obtained. COMPARISON: Chest x-ray from one day earlier and older studies FINDINGS: Osseous structures remain demineralized. Stable mild cardiomegaly with atherosclerotic aor ta. Chronic parenchymal changes bilaterally redemonstrated with small right pleural fluid collection extending laterally. Right basilar pigtail drainage catheter redemonstrated. There is associated righ t basilar opacity redemonstrated. Left lung remains clear. IMPRESSION: Cardiomegaly and chronic parenchymal changes with small right pleural fluid collection an d associated right basilar atelectasis and/or infiltrate. No significant change from one day earlier.
[2022-02-07] MEDS: SYMBICORT 160-4.5 MCG INHALER INHALATION SCH ×2 (07:42→19:55)
[2022-02-07] MEDS: IPRATROPIUM-ALBUTEROL 3 ML NEB INHALATION SCH ×4 (07:42→19:55)
[2022-02-07] MEDS: allopurinoL 100 MG TAB PO SCH (09:41)
[2022-02-07] MEDS: MAGNESIUM OXIDE 400 MG TAB PO SCH ×2 (09:41→21:21)
[2022-02-07] MEDS: FUROSEMIDE 20 MG TAB PO SCH (09:41)
[2022-02-07] MEDS: CHOLECALCIFEROL 25 MCG (1000 IU) TABLET PO SCH (09:41)
[2022-02-07] MEDS: METOPROLOL TARTRATE 25 MG TAB PO SCH ×2 (09:49→21:20)
[2022-02-07] MEDS: TAMSULOSIN 0.4 MG CAP.ER.24H PO SCH (09:49)
[2022-02-07] MEDS: LIDOCAINE 5% PATCH TOPICAL SCH (09:50)
[2022-02-07 10:40] LABS: Basophils % (A) 0 %; Eosinophils # (A) 0.2 k/uL (0-0.7); Eosinophils % (A) 2 %; HCT 35.5 % (39.0-53.0); HGB 11.1 gm/dL (13.0-17.5); Hypochromasia Slight; Lymphocytes # (A) 0.8 k/uL (1.0-4.8); Lymphocytes % (A) 8 %; MCH 30.9 pg (25.0-35.0); MCHC 31.3 g/dL (31.0-37.0); MCV 98.8 fL (80.0-100.0); Mean Platelet Volume 8.8; Monocytes # (A) 0.4 k/uL (0-1.0); Monocytes % (A) 4 %; Neutrophils % (A) 86 %; Platelet Count 313 k/uL (150-450); RDW 13.8 % (11.5-15.5); WBC 10.6 k/uL (3.8-10.6)
[2022-02-07 10:55] LABS: C Reactive Protein 7.3 mg/dL (<1.0); Calcium 8.9 mg/dL (8.4-10.2)
[2022-02-07] MEDS: FLUTICASONE 50MCG/SPRAY NASAL 16GM EA NOSTRIL SCH ×2 (11:32→21:21)
[2022-02-07 11:46] LABS: Glucose,Whole Blood 152 mg/dL (70-110)
--- NOTE | 2022-02-07 12:00 | P.PN ---
Subjective Progress Note Date: 02/07/22 Principal diagnosis: Pneumonia with parapneumonic effusion. Reevaluated today on 02/03/22, patient is basically about the same, his CT of the chest is showing lateral pleural effusion that seems to be possibly loculated at the bases, and it would be difficult for me to drain the fluid hence am recommending ultrasound-guided thoracentesis to be done by radiology, and the patient may even require a pigtail catheter placement if the effusion does not completely resolve with thoracentesis. Yesterday I was able to drain 700 mL which is another pocket of pleural effusion from the right base posteriorly. This fluid on the CT of the chest seems to be lateral and seems to be relatively large in size. The fluid I drained is clearly exudative in nature with elevated protein and elevated LDH and low glucose of 31, malignancy is not entirely ruled out, but felt to be less likely. Patient remains on antibiotics for his pneumonia. Reevaluated today on 02/04/22, patient remains on the regular medical floor, remains on few liters nasal cannula,/4 L, O2 sats is 98%, patient seems to be doing well, he underwent pigtail catheter placement yesterday for his loculated pleural effusion, and so far 700 mL of fluid had been drained, chest x-ray continues to show some loculation on the pleural effusion and I'm recommending thoracic surgery to evaluate for possible alteplase infusion into the pleural space. Cultures on the pleural effusion are pending, however the fluid is ba sically exudative in nature, and it is most likely parapneumonic although malignancy is not entirely ruled out but felt to be less likely. Reevaluated today on 02/05/22, patient is feeling better, breathing easier, he is on 4 L nasal cannula with O2 sats of 94%. He denies being short of breath, his pigtail catheter remains on low continuous suction -20 cm, no air leak present, continues to drain serous drainage, 160 mL in the last 8 hours, 1590 in the last 24 hours. Patient had alteplase instilled yesterday. Patient is doing overall much better, cultures from the pleural effusion are pending patient remains on Rocephin and again overall the patient is improving chest x-ray showing signifi cant improvement in his loculated pleural effusion Progress note dated 02/06/2022. The patient is again seen today in room 358. He is resting comfortably. He's on 4 L of oxygen. Not receiving any IV fluids. The patient will get another dose of TPA, inserted into the pigtail catheter. He has 200 mL out yesterday. Chest x-ray will be ordered for the morning. He seems to be resting comfortab ly. Labs today include a sodium 131, potassium 4.8, chlorides 93, CO2 28, BUN 54, with a creatinine of 1.33. Glucose 223. Chest x-ray shows a similar loculated right-sided pleural effusion, with rightward shift of the mediastinum. No evidence of pneumothorax is seen. Pleural fluid analysis is as far negative or pending. The patient continues on Rocephin. Progress note dated 02/07/2022. The patient is again seen today in room 358. He is resting comfortably. He's on 4 L of oxygen. He is not receiving any IV fluids. He had minimal output from the right-sided chest tube yesterday. Hence, cardiothoracic surgery is considering moving into. I don't believe he needs any TPA again, or out the door days at this time. The patient has no major complaints today. White count 10.6, hemoglobin 11.1, hematocrit 35.5, and platelet count 313,000. Sodium 131, potassium 5, chlorides 95, CO2 26, anion gap 10, BUN 49, and creatinine 1.03. Microbiologic studies are negative. Chest x-ray continues to show cardiomegaly, and chronic parenchymal changes at the right lung base. Objective - Vital Signs Vital signs: Vital Signs Temp 96.4 F L 02/07/22 11:40 Pulse 96 02/07/22 11:48 Resp 18 02/07/22 11:40 BP 121/71 02/07/22 11:40 Pulse Ox 97 02/07/22 11:40 FiO2 70 01/30/22 01:00 Intake & Output 02/06/22 02/07/22 02/07/22 18:59 06:59 18:59 Intake Total 714 240 118 Output Total 330 435 250 Balance 384 -195 -132 Weight 81.193 kg Intake: Oral 714 240 118 Output: Chest Tube Drainage 30 10 0 right posterior chest 30 10 0 Urine 300 425 250 Other: Voiding Method Urinal Urinal Urinal # Voids 1 - Exam No acute distress, oriented 3. No respiratory distress. Currently on 4 L of oxygen. HEENT examination is grossly unremarkable. Neck supple. Full range of motion. No adenopathy thyromegaly or neck vein distention. Cardiovascular examination reveals regular rhythm rate. S1-S2 normal. No S3 or S4. No discernible murmur noted. Heart rate 96 bpm. Lungs reveal diminished breath sounds on the right. Pigtail catheter on the right noted. No wheezes, or crackles. Saturations are 97 %. Abdomen soft bowel sounds are heard. No masses or tenderness. Extremities are intact. No cyanosis clubbing or edema. Skin is without rash or lesion. Neurologic examination is brief but nonfocal. - Labs CBC & Chem 7: 02/07/22 08:38 02/07/22 08:38 Labs: Abnormal Lab Results - Last 24 Hours (Table) 02/06/22 02/06/22 02/07/22 Range/Units 16:46 20:46 08:38 RBC 3.60 L (4.30-5.90) m/uL Hgb 11.1 L (13.0-17.5) gm/dL Hct 35.5 L (39.0-53.0) % Neutrophils # 9.0 H (1.3-7.7) k/uL Lymphocytes # 0.8 L (1.0-4.8) k/uL Sodium (137-145) mmol/L Chloride (98-107) mmol/L BUN (9-20) mg/dL POC Glucose (mg/dL) 259 H 147 H (70-110) mg/dL C-Reactive Protein (<1.0) mg/dL 02/07/22 02/07/22 Range/Units 08:38 11:44 RBC (4.30-5.90) m/uL Hgb (13.0-17.5) gm/dL Hct (39.0-53.0) % Neutrophils # (1.3-7.7) k/uL Lymphocytes # (1.0-4.8) k/uL Sodium 131 L (137-145) mmol/L Chloride 95 L (98-107) mmol/L BUN 49 H (9-20) mg/dL POC Glucose (mg/dL) 152 H (70-110) mg/dL C-Reactive Protein 7.3 H (<1.0) mg/dL Assessment and Plan Assessment: Acute hypoxemic respiratory failure secondary to right lower lobe pneumonia complicated by parapneumonic right-sided effusion, status post pigtail catheter placement. Acute kidney acquired pneumonia. Status post right-sided thoracentesis, with fluid analysis suggesting an exudate. Status post pigtail catheter placement, with instillation of alteplase, and alpha dornase. Influenza B infection. Acute exacerbation of COPD. Type 2 diabetes mellitus. Hyperlipidemia. Benign essential hypertension. Plan: Plan dated 02/06/2022. Thoracic surgery will instill alteplase, and alpha dornase, into the patient's right-sided pigtail catheter. Out, over the last 24 hours. His chest x-ray shows a relatively smaller right-sided effusion. The patient remains on Rocephin. Patient continues on oxygen therapy, as well as bronchodilators, and Symbicort. No additional recommendations are made. Labs, x-rays and medications are reviewed. Prognosis is guarded. We are hoping the patient does not require a thoracotomy and decortication. Plan dated 02/07/2022. The patient's chest tube in my opinion could be removed. The patient is clinically stable. He had minimal output over the last 24 hours from the right- sided pigtail catheter. Labs, x-rays, and medications are reviewed. Hopefully discharge soon. The patient remains on Rocephin as per infectious diseases. No additional recommendations are made. We will continue to follow make recommendations along the way. Time with Patient: Less than 30
--- NOTE | 2022-02-07 15:57 | P.PN ---
Subjective Progress Note Date: 02/07/22 Principal diagnosis: This is a 81-year-old gentleman who is followed by Dr. Javier Godinez on an outpatient basis for his primary care service. The patient also follows with Dr. ASHLI Jiang for his COPD management. 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 He presented here to the emergency department at [facility] on 01/29/2022 due to complaints of progressive shortness of breath over a one week period, pain to his right lower chest, and a productive cough with brownish colored phlegm. He denies any recent fever, chills, nausea, vomiting, diarrhea, constipation, hemoptysis, hematemesis, chest pressure, palpitations, presyncope or syncope. Laboratory results on admission showed a WBC count of 11.3, hemoglobin 13.1, hematocrit 41.8, platelets 389, PT 10.3, INR 0.9, PTT 23.4, plastic lactic acid 5.3, troponin less than 0.020, proBNP 598, sodium 135, potassium 4.9, CO2 18, BUN 67, creatinine 2.39, and glucose 281. A coronavirus PCR was completed which showed not detected, although an influenza type B PCR showed detected. A chest x-ray on admission showed some right pleural effusion and right lower lobe pneumonia. Subsequently, due to the patient's presenting symptoms and positive influenza type B PCR he was admitted for further evaluation and treatment. He is currently on Rocephin for antibiotic coverage and is also receiving Tamiflu. The patient developed a right-sided pleural effusion with repeat x-rays showing increasing right pleural effusion with some underlying atelectasis. On 02/02/2022 a right-sided thoracentesis was completed by Dr. Duncan with 700 mL of thick millie colored fluid drained. The pleural fluid cytology showed predominantly acute inflammatory cells consistent with empyema and no cytologically malignant cells were identified. On 02/03/[address] scanning of his chest was completed which showed a moderate borderline large size right pleural fluid collection slightly prominent lateral component with some septations inferiorly seen. It also demonstrated a thin-walled cyst with air- fluid level in the right lower lung. Due to the findings on the computed tomography scan of the chest interventional radiology was consulted and the patient underwent a placement of a right pleural pigtail catheter yesterday 02/03/2022. Subsequently, Dr. Catrachito Saavedra was consulted for further evaluation and treatment recommendations regarding the right pleural effusion. Status post day #4 placement of right pleural pigtail catheter, placed by interventional radiology. The patient was seen and examined in follow-up today 02/07/2022 at his bedside on the cardiac stepdown unit. He is currently sitting up in his bed, is awake, alert, oriented 3 and is in no acute apparent distress. Oxygen saturation are 97% on 4 L nasal cannula and he is achieving 2250 mL on his incentive spirometry with encouragement. Right chest pleural pigtail catheter remains in place to low continuous wall suction -20 cm H2O. No air leak is present. Draining thin serosanguineous drainage with 50 mL output in the last 24 hours. His pleural pigtail catheter was instilled with alteplase/dornase yesterday which was his third total dose. Chest x-ray report this morning shows cardiomegaly and chronic parenchymal changes with a small right pleural effusion fluid collection with associated right basilar atelectasis and/or infiltrate. Pleural fluid culture remained to show no growth. He is currently on Rocephin for antibiotic coverage managed by infectious disease. He has been afebrile the last 24 hours. Objective - Vital Signs Vital signs: Vital Signs Temp 96.4 F L 02/07/22 11:40 Pulse 96 02/07/22 11:48 Resp 18 02/07/22 11:40 BP 121/71 02/07/22 11:40 Pulse Ox 97 02/07/22 11:40 FiO2 70 01/30/22 01:00 Intake & Output 02/06/22 02/07/22 02/07/22 18:59 06:59 18:59 Intake Total 714 240 118 Output Total 330 435 250 Balance 384 -195 -132 Weight 81.193 kg Intake: Oral 714 240 118 Output: Chest Tube Drainage 30 10 0 right posterior chest 30 10 0 Urine 300 425 250 Other: Voiding Method Urinal Urinal Urinal # Voids 1 - Exam CONSTITUTIONAL: Sitting up in bed on the cardiac stepdown unit, appears comfortable, cooperative, no apparent acute distress. HEENT: Neck is supple, no JVD, no lymphadenopathy. RESPIRATORY: Lungs sounds essentially clear throughout, diminished to his bilateral bases, right greater than left. Respirations are symmetrical and nonlabored. Currently on 4 L nasal cannula with oxygen saturations 97%. Achieving 2250 mL on his incentive spirometry. Strong cough productive cough with tenacious thao sputum. CARDIOVASCULAR: Regular rhythm and rate. S1 and S2 present, negative for S3, gallop or murmur. GASTROINTESTINAL: Abdomen soft, nontender, nondistended. Active bowel sounds present 4 quadrants. Tolerating diet. Passing flatus. No guarding or rigidity. GENITOURINARY: Continues to void. INTEGUMENTARY: Skin is warm and dry with no evidence of clubbing or cyanosis. Dressing to right chest pleural pigtail catheter clean, dry and intact with some scant serosanguineous drainage present. NEUROLOGIC: Cranial nerves II through XII intact. No focal deficits. MUSKULOSKELETAL: Able to move all extremities, strength equal bilaterally, generalized weakness. PSYCHIATRIC: Alert and oriented to person place and time, appropriate affect, intact judgment and insight. INVASIVE LINES AND TUBES: Right chest pigtail catheter in place, no air leak is present. Draining thin serosanguineous drainage with 50 mL output in the last 24 hours. - Allied health notes Allied health notes reviewed: nursing - Labs CBC & Chem 7: 02/07/22 08:38 02/07/22 08:38 Labs: Abnormal Lab Results - Last 24 Hours (Table) 02/06/22 02/06/22 02/07/22 Range/Units 16:46 20:46 08:38 RBC 3.60 L (4.30-5.90) m/uL Hgb 11.1 L (13.0-17.5) gm/dL Hct 35.5 L (39.0-53.0) % Neutrophils # 9.0 H (1.3-7.7) k/uL Lymphocytes # 0.8 L (1.0-4.8) k/uL Sodium (137-145) mmol/L Chloride (98-107) mmol/L BUN (9-20) mg/dL POC Glucose (mg/dL) 259 H 147 H (70-110) mg/dL C-Reactive Protein (<1.0) mg/dL 02/07/22 02/07/22 Range/Units 08:38 11:44 RBC (4.30-5.90) m/uL Hgb (13.0-17.5) gm/dL Hct (39.0-53.0) % Neutrophils # (1.3-7.7) k/uL Lymphocytes # (1.0-4.8) k/uL Sodium 131 L (137-145) mmol/L Chloride 95 L (98-107) mmol/L BUN 49 H (9-20) mg/dL POC Glucose (mg/dL) 152 H (70-110) mg/dL C-Reactive Protein 7.3 H (<1.0) mg/dL - Imaging and Cardiology Chest x-ray: report reviewed, image reviewed Assessment and Plan Assessment: 1. Acute hypoxic respiratory failure secondary to right lower lobe pneumonia and parapneumonic pleural effusion and acute exacerbation of COPD 2. Complex right pleural effusion, likely secondary to above, status post right thoracentesis and subsequent placement of right pleural pigtail catheter by interventional radiology 3. Influenza B infection 4. Acute on chronic hypoxic respiratory failure secondary to above, uses 2 L of nasal cannula at home at night, currently on 4 L nasal cannula 5. Diabetes mellitus type 2 6. Hypertension 7. Hyperlipidemia 8. Peripheral vascular disease, with history of AAA repair and right leg aneurysm repair with peripheral stenting 9. History of obstructive sleep apnea without home CPAP use 10. Remote history of nicotine dependence quit smoking 18 years ago Plan: 1. We will remove his right pleural pigtail catheter today. Discharge planning is in place per primary care service. 2. Encourage use of his incentive spirometry 10 times every hour while awake. 3. Wean oxygen as tolerated. Bronchodilator management per pulmonary/critical care medicine. 4. Medical management and antibiotic management per primary care service. 5. Continue to monitor daily chest x-rays. 6. GI and DVT prophylaxis. 7. Increase activity as tolerated. Out of bed for all meals. 8. More recommendations to follow based on patient's clinical course. Time with Patient: Greater than 30
--- NOTE | 2022-02-07 16:15 | P.PN ---
Subjective Progress Note Date: 02/06/22 H&P Date: 01/30/22 Chief Complaint: Pneumonia shortness of breath This is a 81-year-old white male well-known to our practice with a long-standing history of COPD chronic hypoxic respiratory failure maintained on oxygen at home patient follows with Dr. Caro and Dr. Dakota Bills for underlying COPD was seen in the emergency room with 2 week history of nonproductive cough shortness of breath patient presented in significant respiratory distress when he presented to the emergency room complaining of right-sided flank pain denies chest pain chest x-ray reveals right lower lobe pneumonia bilateral screening came back as positive influenza COVID-19 PCR was negative patient had leukocytosis WBC of 11.3 hemoglobin 13.1 ABG on admission 70% FiO2 a pO2 of 111 and a pCO2 of 38 pH was 7.3 patient has been on IPAP at home and currently has acute kidney injury with a BUNs of 71 creatinine 2.7 blood culture was 364 lactic acid was elevated and pro-calcitonin was elevated 01/31/2022 Maintained on gentle IV fluid hydration, Tamiflu, antibiotics, nebulized bronchodilators. Lactic acid down to 1.5, losartan dose decreased with renal function improving, creatinine down to 1.66. Maintaining O2 sats in the 90s on 10 L high flow nasal cannula. Afebrile, WBC 15.9. Hemoglobin 11.8, electrolytes within normal limits. 02/01/2022 continues on 02 decreased further down to 6 L nasal cannula maintaining O2 sats in the 90s. Diet intake 25%. Hyperglycemic. Denies chest pain, palpitations. Afebrile. Continues on nebulized bronchodilators, Rocephin, Zithromax, Tamiflu. 02/02/2022 continues on Rocephin, Zithromax, nebulized bronchodilators, Tamiflu, maintaining O2 sats in the 90s on 6 L nasal cannula. Afebrile. BUN decreased to 47, creatinine 1.21. Chest ultrasound reporting right pleural effusion and marked for potential thoracentesis, 12.1 cm, possible loculated. Chest x-ray reported increasing right pleural effusion with some underlying atelectasis. Status post right thoracentesis, 700 ml pleural fluid drained, cytology/cultures pending. Tolerated procedure well. Levemir added to med regimen yesterday, blood sugars better controlled. A1c 7.5. 02/03/2022 blood pressure soft, losartan discontinued. Maintained on antibiotics for pneumonia . Pleural fluid analysis reporting elevated protein complete LDH and low glucose .Chest CT performed this morning reporting moderate to borderline large lateral right pleural fluid collection, possibly loculated per pulmonary's review. Thoracentesis per interventional radiology ordered. Maintaining O2 sats in the 90s on 6 L nasal cannula. 02/04/22Patient is awake alert oriented 3, currently has a right sided chest tube with Pleur-evac to water seal, otherwise doing well recent chest disease CT showed a large pleural effusion possibly loculated hence the interventional radiologic placement of chest tube. 02/06/2022 Pigtail catheter instilled again with alteplase. Complains of discomfort at pigtail insertion site. Sodium 131, BUN 54, creatinine 1.33. Maintained on Rocephin. Afebrile. Chest x-ray reporting similar loculated right pleural effusion with rightward shift of the mediastinum, partially due to projection. Right thoracotomy tube without evidence of pneumothorax. Objective - Vital Signs Vital signs: Vital Signs Temp 97.6 F 02/06/22 16:00 Pulse 82 02/06/22 16:00 Resp 18 02/06/22 16:00 BP 92/59 02/06/22 16:00 Pulse Ox 96 02/06/22 16:00 FiO2 70 01/30/22 01:00 Intake & Output 02/05/22 02/06/22 02/06/22 18:59 06:59 18:59 Intake Total 118 596 Output Total 498 30 Balance -380 566 Weight 81.193 kg Intake: Oral 118 596 Output: Chest Tube Drainage 30 right posterior chest 30 Drainage 173 Right Posterior Chest 173 Urine 325 Other: Voiding Method Urinal Urinal Urinal # Voids 2 - Exam General: Sitting up in chair, alert and oriented times 3. no acute distress.] HEENT: [PERRL. EOMI. MMM. Neck: Supple, no JVD Cardiac: [Heart regular in rate and rhythm. No S3. No S4. No clicks, rubs. No murmur. Lungs: Right-sided pigtail catheter, diminished on the right. Abdomen: Soft, [No mass. No organomegaly. Bowel sounds present Extremes: [No edema no cyanosis no claudication normal pulses] Skin: [Warm and dry, No rash.] Neurologic: CN II - XII grossly intact.] - Labs CBC & Chem 7: 02/07/22 08:38 02/07/22 08:38 Labs: Abnormal Lab Results - Last 24 Hours (Table) 02/05/22 02/06/22 02/06/22 Range/Units 21:01 09:52 11:38 Sodium 131 L (137-145) mmol/L Chloride 93 L (98-107) mmol/L BUN 54 H (9-20) mg/dL Creatinine 1.33 H (0.66-1.25) mg/dL Glucose 164 H (74-99) mg/dL POC Glucose (mg/dL) 164 H 223 H (70-110) mg/dL 02/06/22 Range/Units 16:46 Sodium (137-145) mmol/L Chloride (98-107) mmol/L BUN (9-20) mg/dL Creatinine (0.66-1.25) mg/dL Glucose (74-99) mg/dL POC Glucose (mg/dL) 259 H (70-110) mg/dL Microbiology - Last 24 Hours (Table) 02/02/22 09:30 Gram Stain - Final Pleural Fluid Body Fluid Culture - Final 01/30/22 16:08 Blood Culture - Final Blood No Growth after 144 hours Assessment and Plan Assessment: Right parapneumonic pleural effusion status post right-sided thoracentesis, repeat ultrasound reporting bilateral right-sided large pleural effusion- loculated Acute hypoxic respiratory failure secondary to right lower lobe complicated by parapneumonic right-sided effusion, status post pigtail catheter placement Chest x-ray reporting similar loculated right pleural effusion with rightward shift of the mediastinum, Right thoracotomy tube without evidence of pneumothorax.CTS following. (1) Sepsis Current Visit: Yes Status: Acute Code(s): A41.9 - SEPSIS, UNSPECIFIED ORGANISM SNOMED Code(s): 10367588 (2) CAP (community acquired pneumonia) Current Visit: Yes Status: Acute Code(s): J18.9 - PNEUMONIA, UNSPECIFIED ORGANISM SNOMED Code(s): 257323107 (3) Influenza B Current Visit: Yes Status: Acute Code(s): J10.1 - FLU DUE TO OTH IDENT INFLUENZA VIRUS W OTH RESP MANIFEST SNOMED Code(s): 34742177 (4) right pleural effusion, possible parapneumonic, status post thoracentesis, cytology/cultures pending (5) Hyperlipidemia Current Visit: No Status: Acute Code(s): E78.5 - HYPERLIPIDEMIA, UNSPECIFIED SNOMED Code(s): 34076106 (6) Pneumonia Current Visit: No Status: Acute Code(s): J18.9 - PNEUMONIA, UNSPECIFIED ORGANISM SNOMED Code(s): 229195250 (7) Diabetes, hyperglycemic. A1c 7.5. Further diabetic education outpatient in clinic at follow-up with PCP. Current Visit: No Status: Chronic Code(s): E11.9 - TYPE 2 DIABETES MELLITUS WITHOUT COMPLICATIONS SNOMED Code(s): 92010965 (8) Hypertension Current Visit: No Status: Chronic Code(s): I10 - ESSENTIAL (PRIMARY) HYPERTENSION SNOMED Code(s): 55109816 (9) urinary retention, status post Kenny catheter Lactic acidosis,resolved Current Visit: Yes Status: Acute Code(s): E87.2 - ACIDOSIS SNOMED Code(s): 46303764 Plan: Continue on current medication regime, monitoring and symptomatic treatment. Pigtail catheter maintenance as per CTS. Pleural fluid cytology reported no cytologically malignant cells identified.Maintain nebulized bronchodilators, antibiotics. Infectious disease consulted. Diuretics as per nephrology. Close monitoring of renal function, repeat labs ordered for t omorrow. The impression and plan of care has been dictated as directed. : I performed a history and examination of this patient, discussed the same with the dictator. I agree with the dictator's note ,documented as a scribe. Any additional findings or plans will be noted.
[2022-02-07 16:48] LABS: Glucose,Whole Blood 158 mg/dL (70-110)
[2022-02-07 20:20] LABS: Glucose,Whole Blood 136 mg/dL (70-110)
[2022-02-07] MEDS: ATORVASTATIN 40 MG TAB PO SCH (21:21)
[2022-02-08 06:19] LABS: Glucose,Whole Blood 113 mg/dL (70-110)
[2022-02-08] MEDS: INSULIN ASPART (NovoLOG) 100 UNIT/ML VIAL SQ SCH ×4 (06:36→21:37)
[2022-02-08] MEDS: INSULIN DETEMIR (LEVEMIR) 100 UNIT/ML SYR SQ SCH (06:39)
--- NOTE | 2022-02-08 07:19 | XR ---
EXAMINATION TYPE: XR chest 2V DATE OF EXAM: 02/08/2022 6:30 AM COMPARISON: Chest radiograph from one day prior. TECHNIQUE: XR chest 2V Frontal and lateral views of the chest. CLINICAL INDICATION:Male, 81 years old with history of Post removal of right pleural pigtail catheter ; FINDINGS: Lungs/Pleura: Right costophrenic blunting with associated atelectasis and airspace opacities. Pulmonary vascularity: Unremarkable. Heart/mediastinum: Cardiomediastinal silhouette is unremarkable. Musculoskeletal: No acute osseous pathology. IMPRESSION: Similar right pleural effusion with associated atelectasis with superimposed airspace opacities.
[2022-02-08] MEDS: SYMBICORT 160-4.5 MCG INHALER INHALATION SCH ×2 (08:16→19:39)
[2022-02-08] MEDS: IPRATROPIUM-ALBUTEROL 3 ML NEB INHALATION SCH ×4 (08:16→19:39)
--- NOTE | 2022-02-08 08:17 | P.PN ---
Subjective Progress Note Date: 02/08/22 Principal diagnosis: Acute on chronic hypoxic respiratory failure secondary to right lower lobe pneumonia and parapneumonic pleural effusion, acute exacerbation of COPD, influenza B infection. History of home oxygen use, diabetes mellitus type 2, hypertension, hyperlipidemia, peripheral vascular disease, with history of AAA repair and right leg aneurysm repair with peripheral stenting, obstructive sleep apnea without home CPAP use, previous tobacco dependence The patient was seen and examined sitting up in a recliner in the cardiac stepdown unit in no acute distress although he does look a bit more short of breath than yesterday. Patient states he just returned from chest x-ray. Denies any pain. Remains on 4 L nasal cannula. Lungs sounds diminished bilaterally. Pigtail catheter was discontinued yesterday, chest x-ray reviewed. No other new concerns. Objective - Vital Signs Vital signs: Vital Signs Temp 96.8 F L 02/08/22 07:40 Pulse 98 02/08/22 07:40 Resp 18 02/08/22 07:40 BP 104/70 02/08/22 07:40 Pulse Ox 94 L 02/08/22 04:00 FiO2 70 01/30/22 01:00 Intake & Output 02/07/22 02/08/22 02/08/22 18:59 06:59 18:59 Intake Total 236 Output Total 250 500 Balance -14 -500 Intake: Oral 236 Output: Chest Tube Drainage 0 right posterior chest 0 Urine 250 500 Other: Voiding Method Urinal Urinal # Voids 1 - Exam CONSTITUTIONAL: Appears comfortable although a bit short of breath, cooperative, no acute distress RESPIRATORY: Lungs sounds very diminished bilaterally, right greater than left. Respirations even, nonlabored. Currently on 4 L nasal cannula with oxygen saturation 94%. Able to achieve 750 mL on incentive spirometry. Strong nonproductive cough. CARDIOVASCULAR: S1, S2 present. Regular rate and rhythm, sinus rhythm on telemetry. Palpable peripheral pulses bilaterally. No edema present. No calf pain or tenderness noted GASTROINTESTINAL: Abdomen soft, nontender, nondistended. Active bowel sounds present 4 quadrants. Tolerating diet. GENITOURINARY: Continues to void clear, yellow urine INTEGUMENTARY: Skin is warm and dry with evidence of good perfusion. Dressing present to previous pigtail catheter site NEUROLOGIC: Cranial nerves II through XII intact MUSKULOSKELETAL: Able to move all extremities, strength equal bilaterally, gait normal PSYCHIATRIC: Alert and oriented to person place and time, appropriate affect, intact judgment and insight - Allied health notes Allied health notes reviewed: nursing - Labs CBC & Chem 7: 02/07/22 08:38 02/07/22 08:38 Labs: Abnormal Lab Results - Last 24 Hours (Table) 02/07/22 02/07/22 02/07/22 Range/Units 08:38 08:38 08:38 RBC 3.60 L (4.30-5.90) m/uL Hgb 11.1 L (13.0-17.5) gm/dL Hct 35.5 L (39.0-53.0) % Neutrophils # 9.0 H (1.3-7.7) k/uL Lymphocytes # 0.8 L (1.0-4.8) k/uL Sodium 131 L (137-145) mmol/L Chloride 95 L (98-107) mmol/L BUN 49 H (9-20) mg/dL POC Glucose (mg/dL) (70-110) mg/dL C-Reactive Protein 7.3 H (<1.0) mg/dL Procalcitonin 0.62 H (0.02-0.09) ng/mL 02/07/22 02/07/22 02/07/22 Range/Units 11:44 16:42 20:19 RBC (4.30-5.90) m/uL Hgb (13.0-17.5) gm/dL Hct (39.0-53.0) % Neutrophils # (1.3-7.7) k/uL Lymphocytes # (1.0-4.8) k/uL Sodium (137-145) mmol/L Chloride (98-107) mmol/L BUN (9-20) mg/dL POC Glucose (mg/dL) 152 H 158 H 136 H (70-110) mg/dL C-Reactive Protein (<1.0) mg/dL Procalcitonin (0.02-0.09) ng/mL 02/08/22 Range/Units 06:15 RBC (4.30-5.90) m/uL Hgb (13.0-17.5) gm/dL Hct (39.0-53.0) % Neutrophils # (1.3-7.7) k/uL Lymphocytes # (1.0-4.8) k/uL Sodium (137-145) mmol/L Chloride (98-107) mmol/L BUN (9-20) mg/dL POC Glucose (mg/dL) 113 H (70-110) mg/dL C-Reactive Protein (<1.0) mg/dL Procalcitonin (0.02-0.09) ng/mL - Imaging and Cardiology Chest x-ray: report reviewed, image reviewed Assessment and Plan Assessment: 1. Acute on chronic hypoxic respiratory failure secondary to right lower lobe pneumonia and parapneumonic pleural effusion, status post pigtail catheter placement placement with lytic instillation 2. Acute exacerbation of COPD 3. Influenza B infection 4. History of home oxygen use at 2 L/m 5. Diabetes mellitus type 2 6. Hypertension 7. Hyperlipidemia 8. Peripheral vascular disease 9. History of AAA repair and right leg aneurysm repair with peripheral stenting 10. Obstructive sleep apnea without home CPAP use 11. Previous tobacco dependence Plan: 1. Pigtail catheter removed yesterday 2. Encourage use of his incentive spirometry 10 times every hour while awake. 3. Wean oxygen as tolerated. Bronchodilator management per pulmonary/critical care medicine. 4. Antibiotic management per infectious disease 5. GI and DVT prophylaxis. 6. Increase activity as tolerated. Out of bed for all meals. 7. Medical management of other comorbidities per primary care 8. Will continue to see again on an as needed basis. Please call us with any further questions
[2022-02-08] MEDS: LIDOCAINE 5% PATCH TOPICAL SCH (08:22)
[2022-02-08] MEDS: HYDROcodone/APAP 7.5-325MG 1 EACH TAB PO PRN ×2 (08:24→17:21)
[2022-02-08] MEDS: FUROSEMIDE 20 MG TAB PO SCH (08:25)
[2022-02-08] MEDS: CHOLECALCIFEROL 25 MCG (1000 IU) TABLET PO SCH (08:25)
[2022-02-08] MEDS: allopurinoL 100 MG TAB PO SCH (08:25)
[2022-02-08] MEDS: MAGNESIUM OXIDE 400 MG TAB PO SCH ×2 (08:25→21:36)
[2022-02-08] MEDS: METOPROLOL TARTRATE 25 MG TAB PO SCH ×2 (08:26→21:36)
[2022-02-08] MEDS: TAMSULOSIN 0.4 MG CAP.ER.24H PO SCH (08:26)
[2022-02-08] MEDS: FLUTICASONE 50MCG/SPRAY NASAL 16GM EA NOSTRIL SCH ×2 (08:27→21:38)
[2022-02-08 10:50] LABS: Calcium 9.3 mg/dL (8.4-10.2); Potassium 5.3 mmol/L (3.5-5.1)
[2022-02-08 11:33] LABS: Glucose,Whole Blood 190 mg/dL (70-110)
--- NOTE | 2022-02-08 11:46 | P.PN ---
Subjective Progress Note Date: 02/08/22 Principal diagnosis: Pneumonia with parapneumonic effusion. Reevaluated today on 02/03/22, patient is basically about the same, his CT of the chest is showing lateral pleural effusion that seems to be possibly loculated at the bases, and it would be difficult for me to drain the fluid hence am recommending ultrasound-guided thoracentesis to be done by radiology, and the patient may even require a pigtail catheter placement if the effusion does not completely resolve with thoracentesis. Yesterday I was able to drain 700 mL which is another pocket of pleural effusion from the right base posteriorly. This fluid on the CT of the chest seems to be lateral and seems to be relatively large in size. The fluid I drained is clearly exudative in nature with elevated protein and elevated LDH and low glucose of 31, malignancy is not entirely ruled out, but felt to be less likely. Patient remains on antibiotics for his pneumonia. Reevaluated today on 02/04/22, patient remains on the regular medical floor, remains on few liters nasal cannula,/4 L, O2 sats is 98%, patient seems to be doing well, he underwent pigtail catheter placement yesterday for his loculated pleural effusion, and so far 700 mL of fluid had been drained, chest x-ray continues to show some loculation on the pleural effusion and I'm recommending thoracic surgery to evaluate for possible alteplase infusion into the pleural space. Cultures on the pleural effusion are pending, however the fluid is ba sically exudative in nature, and it is most likely parapneumonic although malignancy is not entirely ruled out but felt to be less likely. Reevaluated today on 02/05/22, patient is feeling better, breathing easier, he is on 4 L nasal cannula with O2 sats of 94%. He denies being short of breath, his pigtail catheter remains on low continuous suction -20 cm, no air leak present, continues to drain serous drainage, 160 mL in the last 8 hours, 1590 in the last 24 hours. Patient had alteplase instilled yesterday. Patient is doing overall much better, cultures from the pleural effusion are pending patient remains on Rocephin and again overall the patient is improving chest x-ray showing signifi cant improvement in his loculated pleural effusion Progress note dated 02/06/2022. The patient is again seen today in room 358. He is resting comfortably. He's on 4 L of oxygen. Not receiving any IV fluids. The patient will get another dose of TPA, inserted into the pigtail catheter. He has 200 mL out yesterday. Chest x-ray will be ordered for the morning. He seems to be resting comfortab ly. Labs today include a sodium 131, potassium 4.8, chlorides 93, CO2 28, BUN 54, with a creatinine of 1.33. Glucose 223. Chest x-ray shows a similar loculated right-sided pleural effusion, with rightward shift of the mediastinum. No evidence of pneumothorax is seen. Pleural fluid analysis is as far negative or pending. The patient continues on Rocephin. Progress note dated 02/07/2022. The patient is again seen today in room 358. He is resting comfortably. He's on 4 L of oxygen. He is not receiving any IV fluids. He had minimal output from the right-sided chest tube yesterday. Hence, cardiothoracic surgery is considering moving into. I don't believe he needs any TPA again, or out the door days at this time. The patient has no major complaints today. White count 10.6, hemoglobin 11.1, hematocrit 35.5, and platelet count 313,000. Sodium 131, potassium 5, chlorides 95, CO2 26, anion gap 10, BUN 49, and creatinine 1.03. Microbiologic studies are negative. Chest x-ray continues to show cardiomegaly, and chronic parenchymal changes at the right lung base. Progress note dated 02/08/2022. The patient is again seen in room 358. He remains on 4 L of oxygen. He is getting saline at 10 mL an hour. The pigtail catheter was removed from his right chest, yesterday. Other than pain at the site, he's doing relatively well. The patient does use home oxygen at 2 L. He's currently on 4 L. Sodium 134, potassium 5.3, chlorides 95, CO2 25, anion gap 14, BUN 38, and creatinine 0.96. Chest x-ray shows a right-sided pleural effusion, with associated atelectasis. Objective - Vital Signs Vital signs: Vital Signs Temp 96.3 F L 02/08/22 11:26 Pulse 78 02/08/22 11:26 Resp 18 02/08/22 11:26 BP 90/55 02/08/22 11:26 Pulse Ox 98 02/08/22 11:26 FiO2 70 01/30/22 01:00 Intake & Output 02/07/22 02/08/22 02/08/22 18:59 06:59 18:59 Intake Total 236 0 Output Total 250 500 Balance -14 -500 0 Intake: Oral 236 0 Output: Chest Tube Drainage 0 right posterior chest 0 Urine 250 500 Other: Voiding Method Urinal Urinal Urinal # Voids 1 - Exam No acute distress, oriented 3. No respiratory distress. Currently on 2 L of oxygen. HEENT examination is grossly unremarkable. Neck supple. Full range of motion. No adenopathy thyromegaly or neck vein distention. Cardiovascular examination reveals regular rhythm rate. S1-S2 normal. No S3 or S4. No discernible murmur noted. Heart rate 78 bpm. Lungs reveal diminished breath sounds on the right. No wheezes, or crackles. Saturations are 98 %, on 2 L. Abdomen soft bowel sounds are heard. No masses or tenderness. Extremities are intact. No cyanosis clubbing or edema. Skin is without rash or lesion. Neurologic examination is brief but nonfocal. - Labs CBC & Chem 7: 02/07/22 08:38 02/08/22 08:44 Labs: Abnormal Lab Results - Last 24 Hours (Table) 02/07/22 02/07/22 02/07/22 Range/Units 08:38 11:44 16:42 Sodium (137-145) mmol/L Potassium (3.5-5.1) mmol/L Chloride (98-107) mmol/L BUN (9-20) mg/dL Glucose (74-99) mg/dL POC Glucose (mg/dL) 152 H 158 H (70-110) mg/dL Procalcitonin 0.62 H (0.02-0.09) ng/mL 02/07/22 02/08/22 02/08/22 Range/Units 20:19 06:15 08:44 Sodium 134 L (137-145) mmol/L Potassium 5.3 H (3.5-5.1) mmol/L Chloride 95 L (98-107) mmol/L BUN 38 H (9-20) mg/dL Glucose 120 H (74-99) mg/dL POC Glucose (mg/dL) 136 H 113 H (70-110) mg/dL Procalcitonin (0.02-0.09) ng/mL 02/08/22 Range/Units 11:32 Sodium (137-145) mmol/L Potassium (3.5-5.1) mmol/L Chloride (98-107) mmol/L BUN (9-20) mg/dL Glucose (74-99) mg/dL POC Glucose (mg/dL) 190 H (70-110) mg/dL Procalcitonin (0.02-0.09) ng/mL Assessment and Plan Assessment: Acute hypoxemic respiratory failure secondary to right lower lobe pneumonia complicated by parapneumonic right-sided effusion, status post pigtail catheter placement. Pigtail catheter removed 02/07/2022. Acute kidney acquired pneumonia. Status post right-sided thoracentesis, with fluid analysis suggesting an exudate. Status post pigtail catheter placement, with instillation of alteplase, and alpha dornase. Influenza B infection. Acute exacerbation of COPD. Type 2 diabetes mellitus. Hyperlipidemia. Benign essential hypertension. Plan: Plan dated 02/06/2022. Thoracic surgery will instill alteplase, and alpha dornase, into the patient's right-sided pigtail catheter. Out, over the last 24 hours. His chest x-ray shows a relatively smaller right-sided effusion. The patient remains on Rocephin. Patient continues on oxygen therapy, as well as bronchodilators, and Symbicort. No additional recommendations are made. Labs, x-rays and medicati ons are reviewed. Prognosis is guarded. We are hoping the patient does not require a thoracotomy and decortication. Plan dated 02/07/2022. The patient's chest tube in my opinion could be removed. The patient is clinically stable. He had minimal output over the last 24 hours from the right-sided pigtail catheter. Labs, x-rays, and medications are reviewed. Hopefully discharge soon. The patient remains on Rocephin as per infectious diseases. No additional recommendations are made. We will continue to follow make recommendations along the way. Plan dated 02/08/2022. The patient's Rocephin is discontinued. The patient is postop Omnicef 300 mg twice a day. The pigtail catheter was removed by cardiothoracic surgery yesterday. Chest x-ray, labs, and medications are all reviewed. The patient's oxygen has been weaned down to 2 L, which is what he uses at home. Saturations are 97-98%. From our perspective, the patient could be discharged from the hospital. We'll leave that up to the primary. We will continue to follow make recommendations along the way. Prognosis is guarded. Time with Patient: Less than 30
--- NOTE | 2022-02-08 12:20 | P.PN ---
Subjective Progress Note Date: 02/07/22 H&P Date: 01/30/22 Chief Complaint: Pneumonia shortness of breath This is a 81-year-old white male well-known to our practice with a long-standing history of COPD chronic hypoxic respiratory failure maintained on oxygen at home patient follows with Dr. Caro and Dr. Dakota Bills for underlying COPD was seen in the emergency room with 2 week history of nonproductive cough shortness of breath patient presented in significant respiratory distress when he presented to the emergency room complaining of right-sided flank pain denies chest pain chest x-ray reveals right lower lobe pneumonia bilateral screening came back as positive influenza COVID-19 PCR was negative patient had leukocytosis WBC of 11.3 hemoglobin 13.1 ABG on admission 70% FiO2 a pO2 of 111 and a pCO2 of 38 pH was 7.3 patient has been on IPAP at home and currently has acute kidney injury with a BUNs of 71 creatinine 2.7 blood culture was 364 lactic acid was elevated and pro-calcitonin was elevated 01/31/2022 Maintained on gentle IV fluid hydration, Tamiflu, antibiotics, nebulized bronchodilators. Lactic acid down to 1.5, losartan dose decreased with renal function improving, creatinine down to 1.66. Maintaining O2 sats in the 90s on 10 L high flow nasal cannula. Afebrile, WBC 15.9. Hemoglobin 11.8, electrolytes within normal limits. 02/01/2022 continues on 02 decreased further down to 6 L nasal cannula maintaining O2 sats in the 90s. Diet intake 25%. Hyperglycemic. Denies chest pain, palpitations. Afebrile. Continues on nebulized bronchodilators, Rocephin, Zithromax, Tamiflu. 02/02/2022 continues on Rocephin, Zithromax, nebulized bronchodilators, Tamiflu, maintaining O2 sats in the 90s on 6 L nasal cannula. Afebrile. BUN decreased to 47, creatinine 1.21. Chest ultrasound reporting right pleural effusion and marked for potential thoracentesis, 12.1 cm, possible loculated. Chest x-ray reported increasing right pleural effusion with some underlying atelectasis. Status post right thoracentesis, 700 ml pleural fluid drained, cytology/cultures pending. Tolerated procedure well. Levemir added to med regimen yesterday, blood sugars better controlled. A1c 7.5. 02/03/2022 blood pressure soft, losartan discontinued. Maintained on antibiotics for pneumonia . Pleural fluid analysis reporting elevated protein complete LDH and low glucose .Chest CT performed this morning reporting moderate to borderline large lateral right pleural fluid collection, possibly loculated per pulmonary's review. Thoracentesis per interventional radiology ordered. Maintaining O2 sats in the 90s on 6 L nasal cannula. 02/04/22Patient is awake alert oriented 3, currently has a right sided chest tube with Pleur-evac to water seal, otherwise doing well recent chest disease CT showed a large pleural effusion possibly loculated hence the interventional radiologic placement of chest tube. 02/06/2022 Pigtail catheter instilled again with alteplase. Complains of discomfort at pigtail insertion site. Sodium 131, BUN 54, creatinine 1.33. Maintained on Rocephin. Afebrile. Chest x-ray reporting similar loculated right pleural effusion with rightward shift of the mediastinum, partially due to projection. Right thoracotomy tube without evidence of pneumothorax. 02/07/2022 pigtail catheter cath. to low continuous suction, 24-hour I&O reflecting drainage of 40. Received a total of 3 instillations of altplase/dornase. maintaining O2 sats in the high 90s on 4 L nasal cannula. IS 1999. Chest x-ray reporting no significant change -cardiomegaly, chronic parenchymal changes with moderate pleural fluid collection and associated right basilar atelectasis and/or infiltrate. Complains of tenderness around pigtail catheter site. Afebrile. Renal function improving. Objective - Vital Signs Vital signs: Vital Signs Temp 96.4 F L 02/07/22 11:40 Pulse 96 02/07/22 15:47 Resp 18 02/07/22 11:40 BP 121/71 02/07/22 11:40 Pulse Ox 97 02/07/22 11:40 FiO2 70 01/30/22 01:00 Intake & Output 02/06/22 02/07/22 02/07/22 18:59 06:59 18:59 Intake Total 714 240 236 Output Total 330 435 250 Balance 384 -195 -14 Weight 81.193 kg Intake: Oral 714 240 236 Output: Chest Tube Drainage 30 10 0 right posterior chest 30 10 0 Urine 300 425 250 Other: Voiding Method Urinal Urinal Urinal # Voids 1 - Exam General: Alert and oriented 3, Sitting up in chair,NAD HEENT: [PERRL. EOMI. MMM. Neck: Supple, no JVD Cardiac: [Heart regular in rate and rhythm. No S3. No S4. No clicks, rubs. No murmur. Lungs: Unlabored, Right-sided pigtail catheter, diminished. Abdomen: Soft, [No mass. No organomegaly. Bowel sounds present Extremes: [No edema no cyanosis no claudication normal pulses] Skin: [Warm and dry, No rash.] Neurologic: CN II - XII grossly intact.] - Labs CBC & Chem 7: 02/07/22 08:38 02/08/22 08:44 Labs: Abnormal Lab Results - Last 24 Hours (Table) 02/06/22 02/06/22 02/07/22 Range/Units 16:46 20:46 08:38 RBC 3.60 L (4.30-5.90) m/uL Hgb 11.1 L (13.0-17.5) gm/dL Hct 35.5 L (39.0-53.0) % Neutrophils # 9.0 H (1.3-7.7) k/uL Lymphocytes # 0.8 L (1.0-4.8) k/uL Sodium (137-145) mmol/L Chloride (98-107) mmol/L BUN (9-20) mg/dL POC Glucose (mg/dL) 259 H 147 H (70-110) mg/dL C-Reactive Protein (<1.0) mg/dL 02/07/22 02/07/22 Range/Units 08:38 11:44 RBC (4.30-5.90) m/uL Hgb (13.0-17.5) gm/dL Hct (39.0-53.0) % Neutrophils # (1.3-7.7) k/uL Lymphocytes # (1.0-4.8) k/uL Sodium 131 L (137-145) mmol/L Chloride 95 L (98-107) mmol/L BUN 49 H (9-20) mg/dL POC Glucose (mg/dL) 152 H (70-110) mg/dL C-Reactive Protein 7.3 H (<1.0) mg/dL Assessment and Plan Assessment: Right parapneumonic pleural effusion status post right-sided thoracentesis, repeat ultrasound reporting bilateral right-sided large pleural effusion- loculated Acute hypoxic respiratory failure secondary to right lower lobe complicated by parapneumonic right-sided effusion, status post pigtail catheter placement Chest x-ray reporting similar loculated right pleural effusion with rightward shift of the mediastinum, Right thoracotomy tube without evidence of pneumothorax.CTS following. (1) Sepsis Current Visit: Yes Status: Acute Code(s): A41.9 - SEPSIS, UNSPECIFIED ORGANISM SNOMED Code(s): 68109230 (2) CAP (community acquired pneumonia) Current Visit: Yes Status: Acute Code(s): J18.9 - PNEUMONIA, UNSPECIFIED ORGANISM SNOMED Code(s): 212579177 (3) Influenza B Current Visit: Yes Status: Acute Code(s): J10.1 - FLU DUE TO OTH IDENT INFLUENZA VIRUS W OTH RESP MANIFEST SNOMED Code(s): 73155564 (4) right pleural effusion, possible parapneumonic, status post thoracentesis, cytology/cultures reporting no cytologically malignant cells identified (5) Hyperlipidemia Current Visit: No Status: Acute Code(s): E78.5 - HYPERLIPIDEMIA, UNSPECIFIED SNOMED Code(s): 32624629 (6) Pneumonia Current Visit: No Status: Acute Code(s): J18.9 - PNEUMONIA, UNSPECIFIED ORGANISM SNOMED Code(s): 722152051 (7) Diabetes, hyperglycemic. A1c 7.5. Further diabetic education outpatient in clinic at follow-up with PCP. Current Visit: No Status: Chronic Code(s): E11.9 - TYPE 2 DIABETES MELLITUS WITHOUT COMPLICATIONS SNOMED Code(s): 26785916 (8) Hypertension Current Visit: No Status: Chronic Code(s): I10 - ESSENTIAL (PRIMARY) HYPERTENSION SNOMED Code(s): 32702226 (9) urinary retention, status post Kenny catheter Lactic acidosis,resolved Current Visit: Yes Status: Acute Code(s): E87.2 - ACIDOSIS SNOMED Code(s): 91194120 Plan: Continue on current medication regime, monitoring and symptomatic treatment. Pigtail catheter maintenance as per CTS. Maintain nebulized bronchodilators, antibiotics. Discharge soon. The impression and plan of care has been dictated as directed. : I performed a history and examination of this patient, discussed the same with the dictator. I agree with the dictator's note ,documented as a scribe. Any additional findings or plans will be noted.
[2022-02-08 16:40] LABS: Glucose,Whole Blood 83 mg/dL (70-110)
--- NOTE | 2022-02-08 17:52 | P.DS ---
Providers Date of admission: 01/30/22 01:44 Expected date of discharge: 02/08/22 Attending physician: Puneet Caro Consults: 01/30/22 01:44 Consult Physician Urgent Consulting Provider: Celine Salinas Consult Reason/Comments: acute hypoxic resp failure, acute bipap dependance, CAP, flu b Do you want consulting provider notified?: Yes Consult Physician Urgent Consulting Provider: Michael Merlos Consult Reason/Comments: richardson Do you want consulting provider notified?: Yes 02/04/22 09:57 Consult Physician Routine Consulting Provider: Catrachito Saavedra Consult Reason/Comments: Complex pleural effusion ? alteplase Do you want consulting provider notified?: Yes 02/06/22 13:45 Consult Physician Routine Consulting Provider: Randi Odell Consult Reason/Comments: Loculated pleural effusion, influenza B, pneumonia Do you want consulting provider notified?: Yes Primary care physician: [facility] Course: Final Diagnoses: Right parapneumonic pleural effusion status post right-sided thoracentesis, repeat ultrasound reporting bilateral right-sided large pleural effusion- loculated Acute hypoxic respiratory failure secondary to right lower lobe complicated by parapneumonic right-sided effusion, status post pigtail catheter placement Chest x-ray reporting similar loculated right pleural effusion with rightward shift of the mediastinum, Right thoracotomy tube without evidence of pneumothorax.CTS following. (1) Sepsis Current Visit: Yes Status: Acute Code(s): A41.9 - SEPSIS, UNSPECIFIED ORGANISM SNOMED Code(s): 52316753 (2) CAP (community acquired pneumonia) Current Visit: Yes Status: Acute Code(s): J18.9 - PNEUMONIA, UNSPECIFIED ORGANISM SNOMED Code(s): 071939410 (3) Influenza B Current Visit: Yes Status: Acute Code(s): J10.1 - FLU DUE TO OTH IDENT INFLUENZA VIRUS W OTH RESP MANIFEST SNOMED Code(s): 71327672 (4) right pleural effusion, possible parapneumonic, status post thoracentesis, cytology/cultures reporting no cytologically malignant cells identified (5) Hyperlipidemia Current Visit: No Status: Acute Code(s): E78.5 - HYPERLIPIDEMIA, UNSPECIFIED SNOMED Code(s): 91840087 (6) Pneumonia Current Visit: No Status: Acute Code(s): J18.9 - PNEUMONIA, UNSPECIFIED ORGANISM SNOMED Code(s): 671720045 (7) Diabetes, hyperglycemic. A1c 7.5. Further diabetic education outpatient in clinic at follow-up with PCP. Current Visit: No Status: Chronic Code(s): E11.9 - TYPE 2 DIABETES MELLITUS WITHOUT COMPLICATIONS SNOMED Code(s): 18458367 Hospital course: This is a 81-year-old white male well-known to our practice with a long-standing history of COPD chronic hypoxic respiratory failure maintained on oxygen at home patient follows with Dr. Caro and Dr. Dakota Bills for underlying COPD was seen in the emergency room with 2 week history of nonproductive cough shortness of breath patient presented in significant respiratory distress when he presented to the emergency room complaining of right-sided flank pain denies chest pain chest x-ray reveals right lower lobe pneumonia bilateral screening came back as positive influenza COVID-19 PCR was negative patient had leukocytosis WBC of 11.3 hemoglobin 13.1 ABG on admission 70% FiO2 a pO2 of 111 and a pCO2 of 38 pH was 7.3 patient has been on IPAP at home and currently has acute kidney injury with a BUNs of 71 creatinine 2.7 blood culture was 364 lactic acid was elevated and pro-calcitonin was elevated 01/31/2022 Maintained on gentle IV fluid hydration, Tamiflu, antibiotics, nebulized bronchodilators. Lactic acid down to 1.5, losartan dose decreased with renal function improving, creatinine down to 1.66. Maintaining O2 sats in the 90s on 10 L high flow nasal cannula. Afebrile, WBC 15.9. Hemoglobin 11.8, electrolytes within normal limits. 02/01/2022 continues on 02 decreased further down to 6 L nasal cannula maintaining O2 sats in the 90s. Diet intake 25%. Hyperglycemic. Denies chest pain, palpitations. Afebrile. Continues on nebulized bronchodilators, Rocephin, Zithromax, Tamiflu. 02/02/2022 continues on Rocephin, Zithromax, nebulized bronchodilators, Tamiflu, maintaining O2 sats in the 90s on 6 L nasal cannula. Afebrile. BUN decreased to 47, creatinine 1.21. Chest ultrasound reporting right pleural effusion and marked for potential thoracentesis, 12.1 cm, possible loculated. Chest x-ray reported increasing right pleural effusion with some underlying atelectasis. Status post right thoracentesis, 700 ml pleural fluid drained, cytology/cultures pending. Tolerated procedure well. Levemir added to med regimen yesterday, blood sugars better controlled. A1c 7.5. 02/03/2022 blood pressure soft, losartan discontinued. Maintained on antibiotics for pneumonia . Pleural fluid analysis reporting elevated protein complete LDH and low glucose .Chest CT performed this morning reporting moderate to borderline large lateral right pleural fluid collection, possibly loculated per pulmonary's review. Thoracentesis per interventional radiology ordered. Maintaining O2 sats in the 90s on 6 L nasal cannula. 02/04/22Patient is awake alert oriented 3, currently has a right sided chest tube with Pleur-evac to water seal, otherwise doing well recent chest disease CT showed a large pleural effusion possibly loculated hence the interventional radiologic placement of chest tube. 02/06/2022 Pigtail catheter instilled again with alteplase. Complains of discomfort at pigtail insertion site. Sodium 131, BUN 54, creatinine 1.33. Maintained on Rocephin. Afebrile. Chest x-ray reporting similar loculated right pleural effusion with rightward shift of the mediastinum, partially due to projection. Right thoracotomy tube without evidence of pneumothorax. 02/07/2022 pigtail catheter cath. to low continuous suction, 24-hour I&O reflecting drainage of 40. Received a total of 3 instillations of altplase/dornase. maintaining O2 sats in the high 90s on 4 L nasal cannula. IS 2000. Chest x-ray reporting no significant change -cardiomegaly, chronic parenchymal changes with moderate pleural fluid collection and associated right basilar atelectasis and/or infiltrate. Complains of tenderness around pigtail catheter site. Afebrile. Renal function improving. 02/08/2022 Pigtail catheter discontinued yesterday. Chest x-ray reporting similar right pleural effusion with associated atelectasis with superimposed airspace opacities. Maintaining O2 sats in the 90s on 2 L nasal cannula, baseline. Renal function continues to improve with BUN down to 38, creatinine 0.96. Sodium improving, 134, potassium 5.3 bicarb 25. Afebrile. Significant clinical improvement. Cleared for discharge by both CTS and pulmonary. Patient will be discharged to [facility] subacute rehab today in a stable condition with guarded prognosis. The impression and plan of care has been dictated as directed. : I performed a history and examination of this patient, discussed the same with the dictator. I agree with the dictator's note ,documented as a scribe. Any additional findings or plans will be noted. Microbiology 02/02/22 09:30 Pleural Fluid Gram Stain - Final 02/02/22 09:30 Pleural Fluid Body Fluid Culture - Final 01/30/22 16:08 Blood Blood Culture - Final No Growth after 144 hours 02/02/22 09:30 Pleural Fluid Acid Fast Bacilli Smear - Final 02/02/22 09:30 Pleural Fluid Acid Fast Bacilli Culture - Preliminary 02/02/22 09:30 Pleural Fluid Fungal Culture - Preliminary Patient Condition at Discharge: Stable Plan - Discharge Summary New Discharge Prescriptions: New Tamsulosin [Flomax] 0.4 mg PO PC-BRKFST #30 cap Furosemide [Lasix] 20 mg PO DAILY #0 tab Cefdinir [Omnicef] 300 mg PO BID #14 cap Ipratropium-Albuterol Nebulize [Duoneb 0.5 mg-3 mg/3 ml Soln] 3 ml INHALATION RT-QID #120 each INSULIN LISPRO (HumaLOG) [humaLOG] 0 unit SQ ACHS #10 ml Insulin Detemir (Levemir) [Levemir] 20 unit SQ DAILY@0700 #10 ml Continue Fluticasone Propionate [Flonase] 1 spr EA NOSTRIL BID Albuterol Inhaler [Ventolin Hfa Inhaler] 1 puff INHALATION RT-Q6H PRN PRN Reason: Shortness Of Breath Albuterol Nebulized [Ventolin Nebulized] 3 ml INHALATION RT-QID PRN PRN Reason: Shortness Of Breath Alogliptin Benzoate [Alogliptin] 12.5 mg PO DAILY Tiotropium [place] [Spiriva Respimat] 2 puff INHALATION RT-DAILY Lidocaine 5% Patch [Lidoderm 5% Patch] 1 patch TRANSDERM DAILY Cholecalciferol [Vitamin D3 (25 Mcg = 1000 Iu)] 25 mcg PO DAILY allopurinoL [Zyloprim] 100 mg PO DAILY Atorvastatin Calcium [Lipitor] 40 mg PO HS Metoprolol Tartrate [Lopressor] 75 mg PO BID Carboxymethylcellulose Sodium 1 drop BOTH EYES DAILY PRN PRN Reason: Dry Eye(S) Fluticasone Propion/Salmeterol [Advair 500-50 Diskus] 1 puff INHALATION RT- BID Magnesium Oxide 420mg 420 mg PO BID Discontinued metFORMIN HCL [Glucophage] 500 mg PO BID Losartan Potassium 100 mg PO DAILY hydroCHLOROthiazide [Hydrodiuril] 25 mg PO Q48H Discharge Medication List Albuterol Inhaler [Ventolin Hfa Inhaler] 1 puff INHALATION RT-Q6H PRN 01/28/14 [History] Fluticasone Propionate [Flonase] 1 spr EA NOSTRIL BID 01/28/14 [History] Albuterol Nebulized [Ventolin Nebulized] 3 ml INHALATION RT-QID PRN 05/29/14 [History] Alogliptin Benzoate [Alogliptin] 12.5 mg PO DAILY 03/17/19 [History] Tiotropium [place] [Spiriva Respimat] 2 puff INHALATION RT-DAILY 03/17/19 [History] Atorvastatin Calcium [Lipitor] 40 mg PO HS 01/30/22 [History] Carboxymethylcellulose Sodium 1 drop BOTH EYES DAILY PRN 01/30/22 [History] Cholecalciferol [Vitamin D3 (25 Mcg = 1000 Iu)] 25 mcg PO DAILY 01/30/22 [History] Fluticasone Propion/Salmeterol [Advair 500-50 Diskus] 1 puff INHALATION RT-BID 01/30/22 [History] Lidocaine 5% Patch [Lidoderm 5% Patch] 1 patch TRANSDERM DAILY 01/30/22 [History] Magnesium Oxide 420mg 420 mg PO BID 01/30/22 [History] Metoprolol Tartrate [Lopressor] 75 mg PO BID 01/30/22 [History] allopurinoL [Zyloprim] 100 mg PO DAILY 01/30/22 [History] Cefdinir [Omnicef] 300 mg PO BID #14 cap 02/08/22 [Rx] Furosemide [Lasix] 20 mg PO DAILY #0 tab 02/08/22 [Rx] INSULIN LISPRO (HumaLOG) [humaLOG] 0 unit SQ ACHS #10 ml 02/08/22 [Rx] Insulin Detemir (Levemir) [Levemir] 20 unit SQ DAILY@0700 #10 ml 02/08/22 [Rx] Ipratropium-Albuterol Nebulize [Duoneb 0.5 mg-3 mg/3 ml Soln] 3 ml INHALATION RT-QID #120 each 02/08/22 [Rx] Tamsulosin [Flomax] 0.4 mg PO PC-BRKFST #30 cap 02/08/22 [Rx] Follow up Appointment(s)/Referral(s): Javier Godinez Jr, DO [Primary Care Provider] - 3 Days [facility] Visiting Nurse, [NON-STAFF] - Activity/Diet/Wound Care/Special Instructions: Dianna SHERWOODF CBC,BMP in 3 days Discharge Disposition: TRANSFER TO SNF/ECF
[2022-02-08 20:59] LABS: Glucose,Whole Blood 182 mg/dL (70-110)
[2022-02-08] MEDS: ATORVASTATIN 40 MG TAB PO SCH (21:36)
--- NOTE | 2022-02-08 21:59 | P.PN ---
Subjective Progress Note Date: 02/07/22 Principal diagnosis: Right-sided pneumonia and empyema Patient is a 81-year-old male with past medical history significant for COPD diabetes mellitus presented to hospital with increasing shortness of breath patient was noticed to have a right-sided pneumonia and possible empyema in this patient with status post chest tube placement and cultures. On today's evaluation that is 02/07/2022, the patient denies having any fever or any chills, the patient is breathing more comfortably patient denies having any chest pain cough is decreased intensity, pain and no diarrhea Objective - Vital Signs Vital signs: Vital Signs Temp 96.4 F L 02/07/22 11:40 Pulse 96 02/07/22 11:48 Resp 18 02/07/22 11:40 BP 121/71 02/07/22 11:40 Pulse Ox 97 02/07/22 11:40 FiO2 70 01/30/22 01:00 Intake & Output 02/06/22 02/07/22 02/07/22 18:59 06:59 18:59 Intake Total 714 240 236 Output Total 330 435 250 Balance 384 -195 -14 Weight 81.193 kg Intake: Oral 714 240 236 Output: Chest Tube Drainage 30 10 0 right posterior chest 30 10 0 Urine 300 425 250 Other: Voiding Method Urinal Urinal Urinal # Voids 1 - Exam GENERAL DESCRIPTION: An elderly male lying in bed in no distress RESPIRATORY SYSTEM: Unlabored breathing , decreased breath sounds at bases HEART: S1 S2 regular rate and rhythm , ABDOMEN: Soft , no tenderness EXTREMITIES: No edema feet - Labs CBC & Chem 7: 02/07/22 08:38 02/08/22 08:44 Labs: Abnormal Lab Results - Last 24 Hours (Table) 02/06/22 02/06/22 02/07/22 Range/Units 16:46 20:46 08:38 RBC 3.60 L (4.30-5.90) m/uL Hgb 11.1 L (13.0-17.5) gm/dL Hct 35.5 L (39.0-53.0) % Neutrophils # 9.0 H (1.3-7.7) k/uL Lymphocytes # 0.8 L (1.0-4.8) k/uL Sodium (137-145) mmol/L Chloride (98-107) mmol/L BUN (9-20) mg/dL POC Glucose (mg/dL) 259 H 147 H (70-110) mg/dL C-Reactive Protein (<1.0) mg/dL 02/07/22 02/07/22 Range/Units 08:38 11:44 RBC (4.30-5.90) m/uL Hgb (13.0-17.5) gm/dL Hct (39.0-53.0) % Neutrophils # (1.3-7.7) k/uL Lymphocytes # (1.0-4.8) k/uL Sodium 131 L (137-145) mmol/L Chloride 95 L (98-107) mmol/L BUN 49 H (9-20) mg/dL POC Glucose (mg/dL) 152 H (70-110) mg/dL C-Reactive Protein 7.3 H (<1.0) mg/dL Assessment and Plan (1) Pneumonia Current Visit: No Status: Acute Code(s): J18.9 - PNEUMONIA, UNSPECIFIED ORGANISM SNOMED Code(s): 941917861 Plan: 1patient with a positive influenza B on admission about 8 days ago for the patient has completed his Tamiflu. 2right-sided pneumonia and parapneumonic effusion in this patient who is status post thoracocentesis followed by chest tube placement pleural fluid culture has been negative so far more likely as the patient was on antibiotic for 5 days before the procedure was completed. 3patient will continue with Rocephin to 2 g daily while waiting for the cultures to finalize Time with Patient: Less than 30
--- NOTE | 2022-02-08 22:01 | P.PN ---
Subjective Progress Note Date: 02/08/22 Principal diagnosis: Right-sided pneumonia and empyema Patient is a 81-year-old male with past medical history significant for COPD diabetes mellitus presented to hospital with increasing shortness of breath patient was noticed to have a right-sided pneumonia and possible empyema in this patient with status post chest tube placement and cultures. The patient chest tube was discontinued and 09/13/2021 On today's evaluation that is 02/08/2022, the patient remains to be afebrile, the patient is breathing more comfortably patient denies having any chest pain , the patient cough is decreased intensity, patient denies abdominal pain and no diarrhea Objective - Vital Signs Vital signs: Vital Signs Temp 96.3 F L 02/08/22 11:26 Pulse 84 02/08/22 12:02 Resp 18 02/08/22 13:46 BP 90/55 02/08/22 11:26 Pulse Ox 98 02/08/22 11:26 FiO2 70 01/30/22 01:00 Intake & Output 02/07/22 02/08/22 02/08/22 18:59 06:59 18:59 Intake Total 236 118 Output Total 250 500 200 Balance -14 -500 -82 Intake: Oral 236 118 Output: Chest Tube Drainage 0 right posterior chest 0 Urine 250 500 200 Other: Voiding Method Urinal Urinal Urinal # Voids 1 - Exam GENERAL DESCRIPTION: An elderly male lying in bed in no distress RESPIRATORY SYSTEM: Unlabored breathing , decreased breath sounds at bases HEART: S1 S2 regular rate and rhythm , ABDOMEN: Soft , no tenderness EXTREMITIES: No edema feet - Labs CBC & Chem 7: 02/07/22 08:38 02/08/22 08:44 Labs: Abnormal Lab Results - Last 24 Hours (Table) 02/07/22 02/07/22 02/07/22 Range/Units 08:38 16:42 20:19 Sodium (137-145) mmol/L Potassium (3.5-5.1) mmol/L Chloride (98-107) mmol/L BUN (9-20) mg/dL Glucose (74-99) mg/dL POC Glucose (mg/dL) 158 H 136 H (70-110) mg/dL Procalcitonin 0.62 H (0.02-0.09) ng/mL 02/08/22 02/08/22 02/08/22 Range/Units 06:15 08:44 11:32 Sodium 134 L (137-145) mmol/L Potassium 5.3 H (3.5-5.1) mmol/L Chloride 95 L (98-107) mmol/L BUN 38 H (9-20) mg/dL Glucose 120 H (74-99) mg/dL POC Glucose (mg/dL) 113 H 190 H (70-110) mg/dL Procalcitonin (0.02-0.09) ng/mL Assessment and Plan (1) Pneumonia Current Visit: No Status: Acute Code(s): J18.9 - PNEUMONIA, UNSPECIFIED ORGANISM SNOMED Code(s): 412073554 Plan: 1 right-sided pneumonia and parapneumonic effusion in this patient who is status post thoracocentesis followed by chest tube placement pleural fluid culture has been negative so far more likely as the patient was on antibiotic for 5 days before the procedure was completed. 3patient has shown clinical improvement the patient apparently has been switched over by pulmonary to oral Cefdinar and to continue Time with Patient: Less than 30
[2022-02-08] MEDS: CEFDINIR 300 MG CAP PO SCH (22:16)
[2022-02-09 06:04] LABS: Glucose,Whole Blood 108 mg/dL (70-110)
[2022-02-09] MEDS: INSULIN ASPART (NovoLOG) 100 UNIT/ML VIAL SQ SCH ×2 (06:38→11:57)
[2022-02-09] MEDS: INSULIN DETEMIR (LEVEMIR) 100 UNIT/ML SYR SQ SCH (06:46)
[2022-02-09] MEDS: SYMBICORT 160-4.5 MCG INHALER INHALATION SCH (07:24)
[2022-02-09] MEDS: IPRATROPIUM-ALBUTEROL 3 ML NEB INHALATION SCH ×2 (07:24→11:18)
[2022-02-09] MEDS: FUROSEMIDE 20 MG TAB PO SCH (08:22)
[2022-02-09] MEDS: TAMSULOSIN 0.4 MG CAP.ER.24H PO SCH (08:23)
[2022-02-09] MEDS: CHOLECALCIFEROL 25 MCG (1000 IU) TABLET PO SCH (08:23)
[2022-02-09] MEDS: allopurinoL 100 MG TAB PO SCH (08:23)
[2022-02-09] MEDS: METOPROLOL TARTRATE 25 MG TAB PO SCH (08:23)
[2022-02-09] MEDS: LIDOCAINE 5% PATCH TOPICAL SCH (08:23)
[2022-02-09] MEDS: MAGNESIUM OXIDE 400 MG TAB PO SCH (08:23)
[2022-02-09] MEDS: FLUTICASONE 50MCG/SPRAY NASAL 16GM EA NOSTRIL SCH (08:24)
[2022-02-09] MEDS: CEFDINIR 300 MG CAP PO SCH (08:24)
[2022-02-09 11:33] LABS: Glucose,Whole Blood 172 mg/dL (70-110)
[2022-02-09 12:01] VITALS: BP 110/65; PULSE 93; RESP 16; TEMP 98
--- NOTE | 2022-02-09 12:26 | P.PN ---
Subjective Progress Note Date: 02/09/22 Principal diagnosis: Pneumonia with parapneumonic effusion. Reevaluated today on 02/03/22, patient is basically about the same, his CT of the chest is showing lateral pleural effusion that seems to be possibly loculated at the bases, and it would be difficult for me to drain the fluid hence am recommending ultrasound-guided thoracentesis to be done by radiology, and the patient may even require a pigtail catheter placement if the effusion does not completely resolve with thoracentesis. Yesterday I was able to drain 700 mL which is another pocket of pleural effusion from the right base posteriorly. This fluid on the CT of the chest seems to be lateral and seems to be relatively large in size. The fluid I drained is clearly exudative in nature with elevated protein and elevated LDH and low glucose of 31, malignancy is not entirely ruled out, but felt to be less likely. Patient remains on antibiotics for his pneumonia. Reevaluated today on 02/04/22, patient remains on the regular medical floor, remains on few liters nasal cannula,/4 L, O2 sats is 98%, patient seems to be doing well, he underwent pigtail catheter placement yesterday for his loculated pleural effusion, and so far 700 mL of fluid had been drained, chest x-ray continues to show some loculation on the pleural effusion and I'm recommending thoracic surgery to evaluate for possible alteplase infusion into the pleural space. Cultures on the pleural effusion are pending, however the fluid is ba sically exudative in nature, and it is most likely parapneumonic although malignancy is not entirely ruled out but felt to be less likely. Reevaluated today on 02/05/22, patient is feeling better, breathing easier, he is on 4 L nasal cannula with O2 sats of 94%. He denies being short of breath, his pigtail catheter remains on low continuous suction -20 cm, no air leak present, continues to drain serous drainage, 160 mL in the last 8 hours, 1590 in the last 24 hours. Patient had alteplase instilled yesterday. Patient is doing overall much better, cultures from the pleural effusion are pending patient remains on Rocephin and again overall the patient is improving chest x-ray showing signifi cant improvement in his loculated pleural effusion Progress note dated 02/06/2022. The patient is again seen today in room 358. He is resting comfortably. He's on 4 L of oxygen. Not receiving any IV fluids. The patient will get another dose of TPA, inserted into the pigtail catheter. He has 200 mL out yesterday. Chest x-ray will be ordered for the morning. He seems to be resting comfortab ly. Labs today include a sodium 131, potassium 4.8, chlorides 93, CO2 28, BUN 54, with a creatinine of 1.33. Glucose 223. Chest x-ray shows a similar loculated right-sided pleural effusion, with rightward shift of the mediastinum. No evidence of pneumothorax is seen. Pleural fluid analysis is as far negative or pending. The patient continues on Rocephin. Progress note dated 02/07/2022. The patient is again seen today in room 358. He is resting comfortably. He's on 4 L of oxygen. He is not receiving any IV fluids. He had minimal output from the right-sided chest tube yesterday. Hence, cardiothoracic surgery is considering moving into. I don't believe he needs any TPA again, or out the door days at this time. The patient has no major complaints today. White count 10.6, hemoglobin 11.1, hematocrit 35.5, and platelet count 313,000. Sodium 131, potassium 5, chlorides 95, CO2 26, anion gap 10, BUN 49, and creatinine 1.03. Microbiologic studies are negative. Chest x-ray continues to show cardiomegaly, and chronic parenchymal changes at the right lung base. Progress note dated 02/08/2022. The patient is again seen in room 358. He remains on 4 L of oxygen. He is getting saline at 10 mL an hour. The pigtail catheter was removed from his right chest, yesterday. Other than pain at the site, he's doing relatively well. The patient does use home oxygen at 2 L. He's currently on 4 L. Sodium 134, potassium 5.3, chlorides 95, CO2 25, anion gap 14, BUN 38, and creatinine 0.96. Chest x-ray shows a right-sided pleural effusion, with associated atelectasis. Progress note dated 02/09/2022. This patient is again seen today in room 358. He remains on 4 L of oxygen. He's not receiving any IV fluids other than saline at 10 mL an hour. According to the nursing notes, the patient may be discharged to [facility] later today. Clinically, the patient's doing well. He states his breathing is stable. He denies any chest pain or chest discomfort. No fever or chills. He is not coughing up any phlegm. Blood sugar today was 172. All microbiology assess far negative. Objective - Vital Signs Vital signs: Vital Signs Temp 98.0 F 02/09/22 11:59 Pulse 93 02/09/22 11:59 Resp 16 02/09/22 11:59 BP 110/65 02/09/22 11:59 Pulse Ox 96 02/09/22 11:59 FiO2 70 01/30/22 01:00 Intake & Output 02/08/22 02/09/22 02/09/22 18:59 06:59 18:59 Intake Total 358 Output Total 200 600 Balance 158 -600 Intake: Oral 358 Output: Urine 200 600 Other: Voiding Method Urinal Urinal Urinal # Voids 1 - Exam No acute distress, oriented 3. No respiratory distress. Currently on 4 L of oxygen. HEENT examination is grossly unremarkable. Neck supple. Full range of motion. No adenopathy thyromegaly or neck vein distention. Cardiovascular examination reveals regular rhythm rate. S1-S2 normal. No S3 or S4. No discernible murmur noted. Heart rate 93 bpm. Lungs reveal diminished breath sounds on the right. No wheezes, or crackles. Saturations are 96% on 4 L. Abdomen soft bowel sounds are heard. No masses or tenderness. Extremities are intact. No cyanosis clubbing or edema. Skin is without rash or lesion. Neurologic examination is brief but nonfocal. - Labs CBC & Chem 7: 02/07/22 08:38 02/08/22 08:44 Labs: Abnormal Lab Results - Last 24 Hours (Table) 02/08/22 02/09/22 Range/Units 20:57 11:31 POC Glucose (mg/dL) 182 H 172 H (70-110) mg/dL Assessment and Plan Assessment: Acute hypoxemic respiratory failure secondary to right lower lobe pneumonia complicated by parapneumonic right-sided effusion, status post pigtail catheter placement. Pigtail catheter removed 02/07/2022. Acute kidney acquired pneumonia. Status post right-sided thoracentesis, with fluid analysis suggesting an exudate, with all cultures negative. Status post pigtail catheter placement, with instillation of alteplase, and alpha dornase. Influenza B infection. Acute exacerbation of COPD. Type 2 diabetes mellitus. Hyperlipidemia. Benign essential hypertension. Plan: Plan dated 02/06/2022. Thoracic surgery will instill alteplase, and alpha dornase, into the patient's right-sided pigtail catheter. Out, over the last 24 hours. His chest x-ray shows a relatively smaller right-sided effusion. The patient remains on Rocephin. Patient continues on oxygen therapy, as well as bronchodilators, and Symbicort. No additional recommendations are made. Labs, x-rays and medications are reviewed. Prognosis is guarded. We are hoping the patient does not require a thoracotomy and decortication. Plan dated 02/07/2022. The patient's chest tube in my opinion could be removed. The patient is clinic ally stable. He had minimal output over the last 24 hours from the right-sided pigtail catheter. Labs, x-rays, and medications are reviewed. Hopefully discharge soon. The patient remains on Rocephin as per infectious diseases. No additional recommendations are made. We will continue to follow make recommendations along the way. Plan dated 02/08/2022. The patient's Rocephin is discontinued. The patient is postop Omnicef 300 mg twice a day. The pigtail catheter was removed by cardiothoracic surgery yesterday. Chest x-ray, labs, and medications are all reviewed. The patient's oxygen has been weaned down to 2 L, which is what he uses at home. Saturations are 97-98%. From our perspective, the patient could be discharged from the hospital. We'll leave that up to the primary. We will continue to follow make recommendations along the way. Prognosis is guarded. Plan dated 02/09/2022. The patient is placed on Omnicef 300 mg twice a day for 5-7 days. The patient may be discharged to a assisted later today. He is on 4 L of oxygen. His saturations are stable. He is getting saline at 10 mL an hour. Labs, x-rays, and medications are all reviewed. The patient's overall prognosis is guarded. We will continue to follow the patient and make recommendations where approp maine. He has been scheduled to follow-up in our office with one of my partners. Time with Patient: Less than 30
== END 2022-02-09 14:05 | DRG 871 ==
LOC: EC 23:06 → 3SCARD 01-30 01:44
PROVIDERS: ADMIT Family Medicine; ATTEND Family Medicine
PROC: 5A09357 Assistance with Respiratory Ventilation, Less than 24 Consecutive Hours, Continuous Positive Airway Pressure (ICD-10-PCS; 2022-01-29)
PROC: 0W993ZX Drainage of Right Pleural Cavity, Percutaneous Approach, Diagnostic (ICD-10-PCS; principal; 2022-02-02)
PROC: 0W9930Z Drainage of Right Pleural Cavity with Drainage Device, Percutaneous Approach (ICD-10-PCS; 2022-02-03)
DX: A41.9 Sepsis, unspecified organism (principal); J10.00 Influenza due to other identified influenza virus with unspecified type of pneumonia; J96.21 Acute and chronic respiratory failure with hypoxia; N17.0 Acute kidney failure with tubular necrosis; J86.9 Pyothorax without fistula; J18.9 Pneumonia, unspecified organism; E87.21 Acute metabolic acidosis; J91.8 Pleural effusion in other conditions classified elsewhere; E87.1 Hypo-osmolality and hyponatremia; J44.1 Chronic obstructive pulmonary disease with (acute) exacerbation; J44.0 Chronic obstructive pulmonary disease with (acute) lower respiratory infection; J98.11 Atelectasis; E11.51 Type 2 diabetes mellitus with diabetic peripheral angiopathy without gangrene; E11.22 Type 2 diabetes mellitus with diabetic chronic kidney disease; I13.10 Hypertensive heart and chronic kidney disease without heart failure, with stage 1 through stage 4 chronic kidney disease, or unspecified chronic kidney disease; E11.65 Type 2 diabetes mellitus with hyperglycemia; N18.31 Chronic kidney disease, stage 3a; R65.20 Severe sepsis without septic shock; Z20.822 Contact with and (suspected) exposure to COVID-19; G47.33 Obstructive sleep apnea (adult) (pediatric); E78.5 Hyperlipidemia, unspecified; R33.9 Retention of urine, unspecified; I25.2 Old myocardial infarction; M10.9 Gout, unspecified; Z99.81 Dependence on supplemental oxygen; Z79.84 Long term (current) use of oral hypoglycemic drugs; Z79.51 Long term (current) use of inhaled steroids; Z79.899 Other long term (current) drug therapy; Z87.891 Personal history of nicotine dependence; Z87.01 Personal history of pneumonia (recurrent); Z96.642 Presence of left artificial hip joint; Z95.820 Peripheral vascular angioplasty status with implants and grafts; Z95.828 Presence of other vascular implants and grafts; Z88.5 Allergy status to narcotic agent; Z88.8 Allergy status to other drugs, medicaments and biological substances
CPT/HCPCS: 32551; 36415; 36600; 51701; 51798; 71045; 71046; 71250; 76604; 76770; 76942; 80048; 80053; 81001; 82805; 82945; 83036; 83605; 83615; 83735; 83880; 84145; 84155; 84157; 84484; 85025; 85610; 85730; 86140; 87040; 87070; 87102; 87116; 87205; 87206; 87252; 87496; 87498; 87502; 87529; 87634; 87635; 87798; 88108; 88305; 89050; 93005; 94640; 94660; 94760; 96361; 96365; 96366; 96375; 99291

== ENCOUNTER → 2022-04-07 | Outpatient (CLI) | payer MEDICARE ==
--- NOTE | 2022-04-07 16:47 | MR ---
EXAMINATION TYPE: MR cervical spine wo con DATE OF EXAM: 04/07/2022 COMPARISON: None HISTORY: Cord compression right leg weakness CONTRAST: Performed utilizing 0 mL intravenous Gadavist gadolinium contrast. TECHNIQUE: Multiplanar multiecho imaging on a 3.0 Albertina magnet is performed through the cervical spin e. FINDINGS: The craniovertebral junction is normal. Vertebral body alignment is straightened. Spinal cord signal appears normal. Mild disc space narrowing is present C5-6. There is a grade 1 spondyloli sthesis of C7 anteriorly on T1. C7-T1: No cord contact from disc uncovering is evident. No focal disc herniation or significant disc bulge is evident. No spinal canal stenosis or neural foraminal stenosis is present. C6-7: Based disc bulge is mild anterior thecal sac contact. No spinal canal stenosis or neural forami nal stenosis is present.. C5-6: Broad-based disc bulge is present with moderate anterior thecal sac impression. This may have c ord contact. AP spinal canal stenosis is not present. Severe right and moderate left foraminal stenos is.. C4-5: Mild disc bulges into the thecal sac contact. No cord contact is evident. No spinal canal steno sis or neural foraminal stenosis is present.. C3-4: No focal disc herniation or significant disc bulge is evident. No spinal canal stenosis or doug ral foraminal stenosis is present. C2-3: No focal disc herniation or significant disc bulge is evident. No spinal canal stenosis or doug ral foraminal stenosis is present. IMPRESSIONS: 1. Broad-based disc bulge greatest at C5-6 with moderate anterior thecal sac compression may have karen e cord contact without cord deformity. No spinal canal stenosis present. 2. Milder disc bulging within the mid and lower cervical spine without cord contact or stenosis.
== END | disposition home or self-care (01) ==
LOC: RADMRIMAIN 10:17
PROVIDERS: ATTEND Family Medicine
DX: M50.222 Other cervical disc displacement at C5-C6 level (principal); G95.20 Unspecified cord compression
CPT/HCPCS: 72141

== ENCOUNTER → 2022-04-26 | Outpatient (CLI) | payer MEDICARE, OTHER ==
--- NOTE | 2022-04-26 15:48 | CT ---
EXAMINATION TYPE: CT abdomen pelvis wo con DATE OF EXAM: 04/26/2022 COMPARISON: None HISTORY: POSS KIDNEY STONES. BLOOD IN URINE. CT DLP: 854 mGycm Examination of the solid and hollow viscera is limited given the lack of contrast. FINDINGS: LUNG BASES: Basilar fibrotic change calcified granuloma. LIVER/GB: The gallbladder is unremarkable. N o space-occupying hepatic lesion. PANCREAS: No pancreatic mass identified. No inflammatory process seen. SPLEEN: No evidence for splenomegaly. No intrasplenic lesions seen. Splenic granulomas noted. ADRENALS: No adrenal nodules identified. No evidence for thickening. KIDNEYS: No evidence for renal mass. Bilateral nephrolithiasis. Left kidney demonstrates at least 16 calcifications with the largest measuring 1.2 cm. The right kidney demonstrates approximately 6 calcu li the largest of which measures 1 cm. No hydronephrosis. BOWEL: Appendix has a normal appearance. No evidence of bowel obstruction. No inflammatory process. Lymph nodes: No evidence for adenopathy greater than 1 cm. Abdominal aorta: Aortoiliac stent graft. Genital organs: No significant abnormality. Other: Left hip prosthesis is in place. Severe multilevel degenerative disc change of the lumbar spin e. IMPRESSION: 1 multiple bilateral renal calculi without evidence for obstruction or hydronephrosis.
== END | disposition home or self-care (01) ==
LOC: RADCTMAIN 14:23
PROVIDERS: ATTEND Urology
DX: N20.0 Calculus of kidney (principal); R31.1 Benign essential microscopic hematuria
CPT/HCPCS: 74176

== ENCOUNTER → 2022-09-14 | Outpatient (CLI) | payer MEDICARE ==
[2022-09-14 11:10] VITALS: BP 112/70; PULSE 69; RESP 16; TEMP 97.4
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
== END ==
LOC: PNWHC3 10:34
PROVIDERS: ATTEND Specialist
DX: M54.16 Radiculopathy, lumbar region (principal); S84.11XA Injury of peroneal nerve at lower leg level, right leg, initial encounter; E11.9 Type 2 diabetes mellitus without complications; I10 Essential (primary) hypertension; Z88.8 Allergy status to other drugs, medicaments and biological substances; Z88.5 Allergy status to narcotic agent; Z87.891 Personal history of nicotine dependence
CPT/HCPCS: 99202

== ENCOUNTER 2022-10-10 09:05 | Day surgery (SDC) | payer MEDICARE ==
[2022-10-10] MEDS ORDERED: LIDOCAINE 1% (10MG/ML) FOR IV START INTRADERMA PRN (09:30)
[2022-10-10] MEDS ORDERED: LACTATED RINGERS 1,000 ML IV SCH (09:30)
[2022-10-10 09:32] VITALS: RESP 20; TEMP 97.8
[2022-10-10 09:41] LABS: Glucose,Whole Blood 132 mg/dL (70-110)
[2022-10-10] MEDS ORDERED: methylPREDNISolone ACETATE 40 MG/ML 1 ML VIAL ONE (09:57)
[2022-10-10] MEDS ORDERED: IOPAMIDOL M200 10 ML VIAL ONE (09:57)
--- NOTE | 2022-10-10 10:05 | P.PCN ---
Date of Procedure: 10/10/22 Procedure(s) Performed: PREOPERATIVE DIAGNOSIS: 1- Lumbar Degenerative Disc Diseases 2-Lumbar spondylosis with Facet arthropathy without myelopathy. POSTOPERATIVE DIAGNOSIS: 1-lumbar degenerative disc disease. 2-lumbar spondylosis with facet arthropathy without myelopathy. PROCEDURE 1. Lumbar epidural steroid injection under fluoroscopic guidance at the L5-S1 level. (Fluoroscopy imaging was available in radiology department) 2. Lumbar epidurogram. ANESTHESIA: Lidocaine 1% 3 ML only EBL: Minimal PROCEDURE INDICATION: The patient with low back pain and radiculitis symptoms unresponsive to conservative treatment. Fluoroscopy was used to optimize visualization of the needle placement and to maximize safety. PROCEDURE DESCRIPTION / TECHNIQUE: The patient was seen and identified in the preoperative area. Risks, benefits, complications including but not limited to infections ,bleeding ,allergic reaction to the medications ,nerve damage and not complete pain releife , and alternatives were discussed with the patient. The patient agreed to proceed with the procedure and signed the consent. IV was started, and vital signs were stable. Patient was taken to the OR and time out was completed. The patient was placed in the prone position on procedure table and a pillow was placed under the abdomen to reduce lumbar lordosis. The lumbosacral area was prepped and draped in the usual sterile fashion.ere closely monitored during the procedure. Vital signs was monitered during the entire procedure. Using anterior-posterior fluoroscopy, the L5-S1 interlaminar space was identified and the skin over this site was marked and then infiltrated with 1% lidocaine subcutaneously. Subsequently, a 20-gauge Tuohy epidural needle was inserted and advanced toward the epidural space using the ``Loss of resistance technique and guided by AP and lateral fluoroscopy. The correct needle position in the epidural space was verified with the injection of 2 mL of the water soluble contrast dye Isovue 200 contrast and observing an excellent epidurogram with the epidural spread of the dye, after negative aspiration for blood and CSF and in the absence of paresthesias. Again after negative aspiration, a 6 ml mixture containing 40 mg of Depo-medrol ( Preservetive Free ), and 2 ml of preservative free Normal Saline, and 2 ml of preservative free lidocaine 1% solution was injected and a washout of epidurogram was seen. Needle was withdrawn intact, skin was cleansed, and bandages were applied. COMPLICATIONS: None DISPOSITION / PLANS: The patient was placed in a supine position and transferred to the recovery area in a stable condition for observation. There was no evidence of lower extremity motor or sensory deficit after the procedure. Patient was discharged from the recovery room after meeting discharge criteria. Home discharge instructions were given to the patient by the staff. The patient was reexamined prior to discharge. The patient will schedule a follow up in the clinic in 2-4 weeks.
[2022-10-10 10:36] VITALS: BP 156/86; PULSE 58
--- NOTE | 2022-10-10 16:37 | FL ---
Intraoperative/procedural fluoroscopic services were provided. Total fluoroscopy time is 2.2 seconds with a total of 1 submitted images to PACS. Please see the operative/procedural note for further deta ils. DAP: [id number] mGym2
== END 2022-10-10 10:47 | disposition home or self-care (01) ==
LOC: ORPAIN 09:05
PROVIDERS: ATTEND Specialist
DX: M51.16 Intervertebral disc disorders with radiculopathy, lumbar region (principal); M47.26 Other spondylosis with radiculopathy, lumbar region; E11.9 Type 2 diabetes mellitus without complications; Z88.5 Allergy status to narcotic agent; Z88.8 Allergy status to other drugs, medicaments and biological substances
CPT/HCPCS: 62323; J1030; Q9966

== ENCOUNTER → 2022-11-01 | Outpatient (CLI) | payer MEDICARE ==
[2022-11-01 11:36] VITALS: BP 121/77; PULSE 71; RESP 16; TEMP 98
--- NOTE | 2022-11-01 14:18 | P.PAINPG ---
PQRS Measure Charge Sheet Comment: A 82 yr old wheelchair bound male w at side with a history of severe and chronic LBP secondary to lumbar DDD and spondylosis with facet arthropathy without myelopathy presents today for evaluation s/p HORTENSIA L5-S1. Pt states he experienced 90 % pain relief x 3 wks s/p procedure. Pain level is provoked at 0 /10 in intensity. Pain is alleviated with injections. Interventional pain procedures completed include HORTENSIA L5-S1 Patient is currently on DENIES Patient denies any side effects of the medication(s), denies excessive drowsiness or sleepiness, denies suicidal ideation and reports that the current pain medication is helping to control the pain and improve activities of daily living. Patient denies any motor or sensory deficits. Patient denies any fever or night sweats, denies any change in the bowel movements or urination. Physical Examination: -Constitutional: Cooperative. Not in acute distress . - Neurologic: Cranial nerve II to XII intact. No focal neurological deficits. - Psychatric: Alert & oriented x 3. Matching mood & appropriate affect. Judgment and insight intact. - Musculoskeletal: Cervical spine: Muscle bulk/ tone/ strength in the bilateral upper extremities normal Vertebral body tenderness to palpation over Spurling test positive Distraction test positive Facet loading test positive TTP Thoracic spine Muscle bulk / tone/ strength in the bilateral paraspinal muscles normal Vertebral body tender to palpation over Facet loading test positive TTP Lumbar spine: Motor bulk/ tone/ strength lower extremities , thigh and legs : 5/5 Deep tendon reflexes : Normal Knee Jerk. Normal Ankle Jerk . Vertebral body tenderness to palpation over Ontiveros Test positive Lumbar Facet Loading Test positive Straight Leg Raise: positive at 30 degrees right side/ left side Gaenslen's Test positive Sacral spine : Severe tenderness over the Sacroiliac joint: right side / left side Range of motion: Flexion of the lumbar spine <60 degrees Range of motion: Extension of the lumbar spine <20 degrees Gaenslen's Test positive right side / left side Margaret test: positive right side / left side Thigh Thrust Test positive right side / left side Sacral Thrust Test positive right side / left side Assessment and plan: Chronic LBP secondary to lumbar DDD, spondylosis with facet arthropathy without myelopathy Pt exhibited sufficient and substantial pain relief. He will follow up w Dr Guo, manage residual pain at home and may return on an as needed basis. All questions answered. I have spent less than 30 minutes on patient care today. Dr Martin was available by phone for the evaluation of this patient. The time was used to review the medical records including relevant urine studies and Prescription history (MAPs), review of the available imaging, evaluation and examination of the patient, coordination of care with the medical staff and if applicable referring physicians, as well as creation of the medical record PQRS Narrative: Smoking Status Former smoker Hx Alcohol Use (MH) No Home Medications: Ambulatory Orders Albuterol Inhaler [Ventolin Hfa Inhaler] 1 puff INHALATION RT-Q6H PRN 01/28/14 Fluticasone Propionate [Flonase] 1 spr EA NOSTRIL BID 01/28/14 Albuterol Nebulized [Ventolin Nebulized] 3 ml INHALATION RT-QID PRN 05/29/14 Alogliptin Benzoate [Alogliptin] 12.5 mg PO DAILY 03/17/19 Tiotropium [place] [Spiriva Respimat] 2 puff INHALATION RT-DAILY 03/17/19 Cholecalciferol [Vitamin D3 (25 Mcg = 1000 Iu)] 25 mcg PO DAILY 01/30/22 Fluticasone Propion/Salmeterol [Advair 500-50 Diskus] 1 puff INHALATION RT-BID 01/30/22 Lidocaine 5% Patch [Lidoderm 5% Patch] 1 patch TRANSDERM DAILY 01/30/22 Magnesium Oxide 420mg 420 mg PO BID 01/30/22 Metoprolol Tartrate [Lopressor] 75 mg PO BID 01/30/22 allopurinoL [Zyloprim] 100 mg PO DAILY 01/30/22 Tamsulosin [Flomax] 0.4 mg PO PC-BRKFST #30 cap 02/08/22 Ipratropium-Albuterol Nebulize [Duoneb 0.5 mg-3 mg/3 ml Soln] 3 ml INHALATION BID 10/09/22 Metformin (Unk) 500 mg PO BID 10/09/22 Rosvstain (Unk) 100 mg PO DAILY 10/09/22 Aspirin [Adult Low Dose Aspirin EC] 81 mg PO DAILY 10/10/22 Controlled Substance Measures - Controlled Substance Measures Is patient prescribed a controlled substance at discharge?: No
== END ==
LOC: PNWHC3 09:38
PROVIDERS: ATTEND Specialist
DX: M51.36 Other intervertebral disc degeneration, lumbar region (principal); M47.816 Spondylosis without myelopathy or radiculopathy, lumbar region; G89.29 Other chronic pain; Z87.891 Personal history of nicotine dependence; Z79.82 Long term (current) use of aspirin; Z88.5 Allergy status to narcotic agent; Z88.8 Allergy status to other drugs, medicaments and biological substances
CPT/HCPCS: 99211

== ENCOUNTER → 2022-11-09 | Outpatient (CLI) | payer MEDICARE ==
[2022-11-09 16:31] LABS: Basophils # (A) 0.03 X 10*3/uL (0.00-0.10); Basophils % (A) 0.4 %; Eosinophils # (A) 0.17 X 10*3/uL (0.04-0.35); HCT 40.1 % (39.6-50.0); HGB 12.8 d/dL (12.0-15.0); Lymphocytes % (A) 11.9 %; MCH 31.5 pg (27.0-32.0); MCHC 31.9 d/dL (32.0-37.0); MCV 98.8 FL (80.0-97.0); Mean Platelet Volume 9.8 FL (9.5-12.2); Monocytes # (A) 0.69 X 10*3/uL (0.20-1.00); Monocytes % (A) 8.2 %; NRBC Per 100 WBC 0 X 10*3/uL (0.00-0.01); Neutrophils # (A) 6.44 X 10*3/uL (1.80-7.70); Neutrophils % (A) 76.7 %; Platelet Count 263 X 10*3/uL (140-440); RBC 4.06 X 10*6/uL (4.40-5.60)
[2022-11-09 16:33] LABS: BUN/Creat Ratio 31.25 Ratio (12.00-20.00); Blood Urea Nitrogen 37.5 mg/dL (9.0-27.0); Carbon Dioxide 26.7 mmol/L (21.6-31.8); Chloride 98 mmol/L (96-109); Glucose 140 mg/dL (70-110); Potassium 4.6 mmol/L (3.5-5.5); Sodium 140 mmol/L (135-145)
== END | disposition home or self-care (01) ==
LOC: LABPAT 11:08
PROVIDERS: ATTEND Urology
DX: Z01.812 Encounter for preprocedural laboratory examination (principal); N52.9 Male erectile dysfunction, unspecified; R31.29 Other microscopic hematuria
CPT/HCPCS: 80048; 85025; 87086

== ENCOUNTER 2022-11-16 08:32 | Day surgery (SDC) | payer MEDICARE ==
[2022-11-10 17:03] VITALS: BMI 21.7
--- NOTE | 2022-11-16 08:06 | P.GSHP ---
History of Present Illness H&P Date: 11/16/22 Chief Complaint: Male sexual dysfunction The patient is an 82-year-old white male with multiple medical problems, including hypertension, hyperlipidemia, and diabetes mellitus. He has long- standing erectile dysfunction dating back to the 1990s and has failed treatment, most recently intracavernosal injection therapy. He desires an inflatable penile prosthesis and comes for this reason. - Cardiovascular Cardiovascular: Reports high blood pressure - Genitourinary (Male) Genitourinary: Reports impotence - Neurological Neurological: Reports gait dysfunction Past Medical History Past Medical History: Chest Pain / Angina, COPD, Diabetes Mellitus, Hyperlipidemia, Hypertension, Myocardial Infarction (HI), Pneumonia, Renal Disease, Skin Disorder Additional Past Medical History / Comment(s): Stage 2 kidney failure, gout Last Myocardial Infarction Date:: 1990 History of Any Multi-Drug Resistant Organisms: None Reported Past Surgical History: Heart Catheterization, Joint Replacement Additional Past Surgical History / Comment(s): AAA repair, rt leg aneurysm with 2 stents, sarah cataracts, neck surgery, lt hip replacement Past Anesthesia/Blood Transfusion Reactions: Previous Problems w/ Anesthesia, Motion Sickness Additional Past Anesthesia/Blood Transfusion Reaction / Comment(s): previous difficulty with general anesthesia due to COPD and difficulty breathing Past Psychological History: No Psychological Hx Reported Smoking Status: Former smoker Past Alcohol Use History: None Reported Additional Past Alcohol Use History / Comment(s): STARTED SMOKING AT AGE 17,SMOKED 1 PPD, [id number], Past Drug Use History: None Reported - Past Family History Mother Family Medical History: No Reported History Additional Family Medical History / Comment(s): AGE 42 UNCONTROLLED HIGH BLOOD PRESSURE/ MIGRAINES Medications and Allergies Home Medications Medication Instructions Recorded Confirmed Type Albuterol Inhaler [Ventolin Hfa 1 puff INHALATION RT-Q6H PRN 01/28/14 11/10/22 History Inhaler] Albuterol Nebulized [Ventolin 3 ml INHALATION RT-QID PRN 05/29/14 11/10/22 Histo ry Nebulized] Cholecalciferol [Vitamin D3 (25 25 mcg PO Q48H 01/30/22 11/10/22 History Mcg = 1000 Iu)] Fluticasone Propion/Salmeterol 1 puff INHALATION RT-BID 01/30/22 11/10/22 History [Advair 500-50 Diskus] Metoprolol Tartrate [Lopressor] 75 mg PO BID 01/30/22 11/10/22 History allopurinoL [Zyloprim] 100 mg PO DAILY 01/30/22 11/10/22 History Aspirin [Adult Low Dose Aspirin EC] 81 mg PO DAILY 10/10/22 11/10/22 History Alogliptin Benzoate [Alogliptin] 12.5 mg PO DAILY 11/10/22 11/10/22 History Atorvastatin [Lipitor] 40 mg PO DAILY 11/10/22 11/10/22 History Fluticasone Propion/Salmeterol 1 inhalation PO BID 11/10/22 11/10/22 History [Wixela 500-50 Inhub] Losartan Potassium [Cozaar] 100 mg PO DAILY 11/10/22 11/10/22 History Magnesium Oxide [Magox 400] 400 mg PO BID 11/10/22 11/10/22 History Tiotropium 18 Mcg/Puff [Spiriva] 1 puff INHALATION BID 11/10/22 11/10/22 History hydroCHLOROthiazide [Hydrodiuril] 50 mg PO DAILY 11/10/22 11/10/22 History metFORMIN HCL [Glucophage] 500 mg PO BID 11/10/22 11/10/22 History Allergies Allergy/AdvReac Type Severity Reaction Status Date / Time enalaprilat [From Vasotec] Allergy Per [facility] Verified 11/10/22 16:35 records tramadol AdvReac Hallucinati Verified 11/10/22 16:35 ons Surgical - Exam - General well developed, well nourished, no distress - Respiratory normal respiratory effort - Abdomen Abdomen: soft, non tender, no guarding, no rigid, no rebound - Genitourinary normal penis with no external lesions, testicles non-tender - Rectum Rectum: normal sphincter tone, no masses, other (Prostate mildly enlarged but smooth) - Psychiatric oriented to time, oriented to person, oriented to place, speech is normal, memory intact Assessment and Plan (1) ED (erectile dysfunction) of organic origin Status: Acute Code(s): N52.9 - MALE ERECTILE DYSFUNCTION, UNSPECIFIED SNOMED Code(s): 898660231 Plan: Insertion of inflatable penile prosthesis, to be performed under spinal anesthesia given the patient's multiple comorbid conditions. He has been cleared by pulmonary medicine but understands that he is a moderate to high operative risk. The procedure has been reviewed in great detail with the patient and his . They understand potential surgical risks to include anesthesia, bleeding, infection, pain, mechanical failure, and erosion.
[~2022-11-16 08:32] MED LIST changes: -BUPIVACAINE (PF) 0.25% 30 ML VIAL SQ ONE; -DEXAMETHASONE SOD PHOSPHATE 10 MG/ML 1 ML VIAL IV ONE; +GENTAMICIN 110 MG in SODIUM CHLORIDE 0.9% 100 ML IVPB PRN; -HYDROmorphone 0.5 MG/0.5 ML SYRINGE IVP PRN; -KETAMINE 10 MG/ML 20 ML VIAL ONE; -LIDOCAINE 1% 20 ML VIAL (10MG/ML) FOR IV START INTRADERMA PRN; -MIDAZOLAM 2 MG/2 ML VIAL IV PRN; -PROPOFOL 10 MG/ML 20 ML VIAL IV ONE; -SCOPOLAMINE 1.5MG/72HR PATCH TRANSDERM ONE; +fentaNYL (PF) 50 MCG/ML 2 ML AMP IV PRN
[2022-11-16 09:28] LABS: Glucose,Whole Blood 109 mg/dL (70-110)
[2022-11-16] MEDS ORDERED: KETAMINE 10 MG/ML 20 ML VIAL ONE (10:45)
[2022-11-16] MEDS ORDERED: MIDAZOLAM 2 MG/2 ML VIAL ONE (10:45)
[2022-11-16] MEDS ORDERED: SODIUM CHLORIDE 0.9% IRRIGATION ONE (11:24)
[2022-11-16] MEDS ORDERED: CEFAZOLIN IRRIGATION ONE (11:24)
[2022-11-16] MEDS ORDERED: GENTAMICIN IRRIGATION ONE (11:24)
[2022-11-16] MEDS ORDERED: ALBUTEROL NEBULIZED 2.5 MG/3 ML INHALATION PRN (12:42)
[2022-11-16] MEDS ORDERED: ALBUTEROL INHALATION PRN (12:42)
[2022-11-16] MEDS ORDERED: HYDROmorphone 1 MG/ML 1 ML SYRINGE IVP PRN (12:46)
[2022-11-16] MEDS ORDERED: ACETAMINOPHEN TAB 325 MG TAB PO PRN (12:46)
[2022-11-16] MEDS: SODIUM CHLORIDE 0.45% 1,000 ML IV SCH (16:07)
[2022-11-16 16:51] LABS: Glucose,Whole Blood 110 mg/dL (70-110)
[2022-11-16] MEDS: HYDROcodone/APAP 5-325MG 1 EACH TAB PO PRN (17:18)
[2022-11-16] MEDS: metFORMIN 500 MG TAB PO SCH (19:53)
[2022-11-16] MEDS: MAGNESIUM OXIDE 400 MG TAB PO SCH (19:54)
[2022-11-16] MEDS: METOPROLOL TARTRATE 25 MG TAB PO SCH (20:03)
[2022-11-16] MEDS ORDERED: NON FORMULARY DRUG (Fluticasone Propion/Salmeterol [Wixela 500-50 Inhub] 1 EACH Blst.W.Dev PO SCH (21:00)
[2022-11-16] MEDS: IPRATROPIUM 0.5 MG/2.5 ML NEBU INHALATION SCH (22:04)
[2022-11-16] MEDS: SYMBICORT 160-4.5 MCG INHALER INHALATION SCH (22:04)
[2022-11-16] MEDS ORDERED: GENTAMICIN 110 MG in SODIUM CHLORIDE 0.9% 100 ML IVPB ONE (23:00)
[2022-11-17 07:19] VITALS: RESP 16
[2022-11-17] MEDS: METOPROLOL TARTRATE 25 MG TAB PO SCH (08:03)
[2022-11-17] MEDS: MAGNESIUM OXIDE 400 MG TAB PO SCH (08:03)
[2022-11-17] MEDS: SODIUM CHLORIDE 0.45% 1,000 ML IV SCH (08:04)
[2022-11-17] MEDS: metFORMIN 500 MG TAB PO SCH (08:04)
[2022-11-17] MEDS: HYDROcodone/APAP 5-325MG 1 EACH TAB PO PRN (08:21)
[2022-11-17] MEDS: SYMBICORT 160-4.5 MCG INHALER INHALATION SCH (08:42)
[2022-11-17] MEDS: IPRATROPIUM 0.5 MG/2.5 ML NEBU INHALATION SCH ×2 (08:42→12:36)
[2022-11-17] MEDS ORDERED: LINAGLIPTIN 5 MG TABLET PO SCH (09:00)
[2022-11-17] MEDS ORDERED: ATORVASTATIN 40 MG TAB PO SCH (09:00)
[2022-11-17] MEDS ORDERED: CHOLECALCIFEROL 25 MCG (1000 IU) TABLET PO SCH (09:00)
[2022-11-17] MEDS ORDERED: LOSARTAN 50 MG TAB PO SCH (09:00)
[2022-11-17] MEDS ORDERED: allopurinoL 100 MG TAB PO SCH (09:00)
[2022-11-17 11:29] LABS: Glucose,Whole Blood 112 mg/dL (70-110)
[2022-11-17 13:45] VITALS: BP 104/68; PULSE 74; TEMP 97.7
--- NOTE | 2022-11-17 17:51 | P.OP ---
Date of Procedure: 11/16/22 Preoperative Diagnosis: Erectile Dysfunction Organic Origin Postoperative Diagnosis: Same Procedure(s) Performed: Insertion of inflatable penile prosthesis (AMS 700 CX) Anesthesia: spinal Surgeon: Jasvir Lockhart Liquor Bridge Operator #1: Mike Crabtree Estimated Blood Loss (ml): 30 IV fluids (ml): 300 Pathology: none sent Condition: stable Disposition: PACU Indications for Procedure: The patient is an 82-year-old white male with multiple medical problems, including hypertension, hyperlipidemia, and diabetes mellitus. He has long- standing erectile dysfunction dating back to the and has failed treatment, most recently intracavernosal injection therapy. He desires an inflatable penile prosthesis and comes for this reason. Operative Findings: No evidence of corporal fibrosis. Description of Procedure: The patient was taken to the operating room and given a spinal anesthetic. He was then placed in the supine position. The lower abdomen and external genitalia were prepped and draped sterilely. The scalpel was used to make a midline infrapubic skin incision. The Bovie electrocautery was used to incise the subcutaneous fat, down to the linea alba and the corporal bodies inferiorly. After exposing the corpora cavernosa bilaterally, 3-0 PDS stay sutures were placed in the tunica albuginea of each corpora. Metzenbaum scissors were used to make corporotomies bilaterally. Metzenbaum scissors were then used to dissect proximally and distally within the corporal body. Hegar dilators were then used to dilate the corporal bodies bilaterally, proximally and distally, up to 15 mm. The corporal bodies were both measured to be 20 cm in length. The linea alba was incised in the midline, and blunt digital dissection was used to create a prevesical space for the reservoir, to the right of the midline. A right angle clamp was then passed through the external inguinal ring and into the prevesical space, and the tubing to the reservoir was then brought through the external ring. After placing the reservoir in the prevesical space, the rectus fascia was closed using 0 PDS suture in a running fashion. The reservoir was then insufflated to 65 mL without tension. An 18 centimeter AMS 700 CX implant was prepared, with 2 cm rear tip extenders placed bilaterally. The strings at the implant tips were then attached to the Norman needle, which was placed within the Anthony introducer. The Anthony introducer was passed distally within the corporal body, and the Norman needle was then advanced through the glans penis. The strings were pulled, thus pulling the distal tip of the cylinder to the distal end of the corporal body, and the proximal end of the cylinder was passed into the proximal corporal body. This was done bilaterally, and both cylinders lied nicely within the respective corporal body. The cylinders were individually inflated to be sure there was no buckling, and the corporotomies were then closed using 3-0 PDS suture in a running fashion. Digital dissection was used to develop a subcutaneous space within the right anterior hemiscrotum, and the pump was placed within this. A straight connector was then used to connect the tubing from the pump to the reservoir tubing. The implant was then inflated, resulting in a symmetrical and straight erection. The implant was then deflated. Antibiotic solution was used on multiple occasions to irrigate the prosthetic components and the surgical wound. Rich's fascia was closed over the prosthetic tubing. All subcutaneous bleeders were controlled with electrocautery. The skin was closed using ten. A sterile gauze dressing was applied over the incision. All sponge and needle counts were correct. A 12-Arabic Kenny catheter was placed. The return was clear. The patient tolerat ed the procedure well was taken to the recovery room in stable condition.
--- NOTE | 2022-11-17 17:52 | P.DS ---
Providers Expected date of discharge: 11/17/22 Attending physician: Jasvir Lockhart Primary care physician: Puneet Caro - Discharge Diagnosis(es) (1) ED (erectile dysfunction) of organic origin Status: Acute Hospital Course: On the day of admission, the patient underwent an uncomplicated placement of an inflatable penile prosthesis. The perioperative course was unremarkable. Patient remained afebrile with stable vital signs. On the first postoperative day, he was noted to be hypoxic as a result of his known COPD, but he denied dyspnea. He reported mild incisional discomfort, as expected. On examination, the infrapubic incision was clean, dry, and intact. Mild penile edema was noted. Mild to moderate scrotal ecchymosis was noted. The Kenny catheter was removed, and the patient voided prior to discharge. Procedures: Insertion of inflatable penile prosthesis (AMS 700 CX) on November 16, 2022. Patient Condition at Discharge: Good Plan - Discharge Summary Discharge Rx Participant: No New Discharge Prescriptions: New Sulfamethox-Tmp 800-160Mg [Bactrim DS 800-160 mg] 1 tab PO Q12HR #14 tab HYDROcodone/APAP 5-325MG [[place] 5-325] 1 - 2 tab PO Q4HR PRN #10 tab PRN Reason: Pain No Action Albuterol Inhaler [Ventolin Hfa Inhaler] 1 puff INHALATION RT-Q6H PRN PRN Reason: Shortness Of Breath Albuterol Nebulized [Ventolin Nebulized] 3 ml INHALATION RT-QID PRN PRN Reason: Shortness Of Breath Cholecalciferol [Vitamin D3 (25 Mcg = 1000 Iu)] 25 mcg PO Q48H allopurinoL [Zyloprim] 100 mg PO DAILY Metoprolol Tartrate [Lopressor] 75 mg PO BID Aspirin [Adult Low Dose Aspirin EC] 81 mg PO DAILY Magnesium Oxide [Magox 400] 400 mg PO BID Alogliptin Benzoate [Alogliptin] 12.5 mg PO DAILY hydroCHLOROthiazide [Hydrodiuril] 50 mg PO DAILY Fluticasone Propion/Salmeterol [Advair 500-50 Diskus] 1 puff INHALATION RT-B ID Tiotropium 18 Mcg/Puff [Spiriva] 1 puff INHALATION BID Atorvastatin [Lipitor] 40 mg PO DAILY metFORMIN HCL [Glucophage] 500 mg PO BID Losartan Potassium [Cozaar] 100 mg PO DAILY Fluticasone Propion/Salmeterol [Wixela 500-50 Inhub] 1 inhalation PO BID Discharge Medication List Albuterol Inhaler [Ventolin Hfa Inhaler] 1 puff INHALATION RT-Q6H PRN 01/28/14 [History] Albuterol Nebulized [Ventolin Nebulized] 3 ml INHALATION RT-QID PRN 05/29/14 [History] Cholecalciferol [Vitamin D3 (25 Mcg = 1000 Iu)] 25 mcg PO Q48H 01/30/22 [History] Fluticasone Propion/Salmeterol [Advair 500-50 Diskus] 1 puff INHALATION RT-BID 01/30/22 [History] Metoprolol Tartrate [Lopressor] 75 mg PO BID 01/30/22 [History] allopurinoL [Zyloprim] 100 mg PO DAILY 01/30/22 [History] Aspirin [Adult Low Dose Aspirin EC] 81 mg PO DAILY 10/10/22 [History] Alogliptin Benzoate [Alogliptin] 12.5 mg PO DAILY 11/10/22 [History] Atorvastatin [Lipitor] 40 mg PO DAILY 11/10/22 [History] Fluticasone Propion/Salmeterol [Wixela 500-50 Inhub] 1 inhalation PO BID 11/10/22 [History] Losartan Potassium [Cozaar] 100 mg PO DAILY 11/10/22 [History] Magnesium Oxide [Magox 400] 400 mg PO BID 11/10/22 [History] Tiotropium 18 Mcg/Puff [Spiriva] 1 puff INHALATION BID 11/10/22 [History] hydroCHLOROthiazide [Hydrodiuril] 50 mg PO DAILY 11/10/22 [History] metFORMIN HCL [Glucophage] 500 mg PO BID 11/10/22 [History] HYDROcodone/APAP 5-325MG [[place] 5-325] 1 - 2 tab PO Q4HR PRN #10 tab 11/17/22 [Rx] Sulfamethox-Tmp 800-160Mg [Bactrim DS 800-160 mg] 1 tab PO Q12HR #14 tab 11/17/22 [Rx] Follow up Appointment(s)/Referral(s): Jasvir Lockhart MD [STAFF PHYSICIAN] - 11/24/22 1:00 pm Patient Instructions/Handouts: Penile Prosthesis (DC) Activity/Diet/Wound Care/Special Instructions: Diet as tolerated. OK to shower on 11/18/2022. No lifting, driving, or strenuous activity. Discharge Disposition: HOME SELF-CARE
== END 2022-11-17 15:06 | disposition home or self-care (01) ==
LOC: OR 08:32 → 4SSUR 12:30 → OR 11-17 15:06
PROVIDERS: ATTEND Urology
DX: N52.9 Male erectile dysfunction, unspecified (principal); I10 Essential (primary) hypertension; E78.5 Hyperlipidemia, unspecified; J44.9 Chronic obstructive pulmonary disease, unspecified; I25.2 Old myocardial infarction; E11.36 Type 2 diabetes mellitus with diabetic cataract; Z96.642 Presence of left artificial hip joint; Z87.891 Personal history of nicotine dependence; Z79.899 Other long term (current) drug therapy
CPT/HCPCS: 94640 ×2; 94760; 54410; C1813; J2250; J1580 ×2; J0690 ×2; J2405; J1170

== ENCOUNTER → 2022-12-19 | Outpatient (CLI) | payer MEDICARE ==
[2022-12-19 13:32] LABS: African American GFR (CKD) 48 (>60 ml/min/1.73 sqM); Blood Urea Nitrogen 42 mg/dL (9-20); Non-African American GFR(CKD) 42 (>60 ml/min/1.73 sqM)
== END | disposition home or self-care (01) ==
LOC: RADCTMAIN 12:33
PROVIDERS: ATTEND Thoracic Surgery (Cardiothoracic Vascular Surgery)
DX: I71.20 Thoracic aortic aneurysm, without rupture, unspecified (principal)
CPT/HCPCS: 82565; 84520

== ENCOUNTER 2023-03-25 21:00 | Emergency (ER) | payer MEDICARE ==
[2023-03-25 21:21] VITALS: TEMP 98.4
--- NOTE | 2023-03-25 21:49 | ED ---
General Adult HPI - General Chief complaint: Urogenital Stated complaint: Urine Retention Time Seen by Provider: 03/25/23 21:18 Source: patient, family, RN notes reviewed, old records reviewed Mode of arrival: ambulatory Limitations: no limitations - History of Present Illness Initial comments: 82 male presenting with increased urinary frequency but concern for decreased urinary output. Patient denies dysuria. Denies fever. States he has been eating and drinking normally without any issues. He has no fever or chills. No vomiting. He states that over the past 2 days he's had increased urinary frequency urinating approximately every hour but has had not had large volume of urine. - Related Data Home Medications Medication Instructions Recorded Confirmed Albuterol Inhaler [Ventolin Hfa 1 puff INHALATION RT-Q6H PRN 01/28/14 11/16/22 Inhaler] Albuterol Nebulized [Ventolin 3 ml INHALATION RT-QID PRN 05/29/14 11/16/22 Nebulized] Cholecalciferol [Vitamin D3 (25 25 mcg PO Q48H 01/30/22 11/16/22 Mcg = 1000 Iu)] Fluticasone Propion/Salmeterol 1 puff INHALATION RT-BID 01/30/22 11/16/22 [Advair 500-50 Diskus] Metoprolol Tartrate [Lopressor] 75 mg PO BID 01/30/22 11/16/22 allopurinoL [Zyloprim] 100 mg PO DAILY 01/30/22 11/16/22 Aspirin [Adult Low Dose Aspirin EC] 81 mg PO DAILY 10/10/22 11/16/22 Alogliptin Benzoate [Alogliptin] 12.5 mg PO DAILY 11/10/22 11/16/22 Atorvastatin [Lipitor] 40 mg PO DAILY 11/10/22 11/16/22 Fluticasone Propion/Salmeterol 1 inhalation PO BID 11/10/22 11/16/22 [Wixela 500-50 Inhub] Losartan Potassium [Cozaar] 100 mg PO DAILY 11/10/22 11/16/22 Magnesium Oxide [Magox 400] 400 mg PO BID 11/10/22 11/16/22 Tiotropium 18 Mcg/Puff [Spiriva] 1 puff INHALATION BID 11/10/22 11/16/22 hydroCHLOROthiazide [Hydrodiuril] 50 mg PO DAILY 11/10/22 11/16/22 metFORMIN HCL [Glucophage] 500 mg PO BID 11/10/22 11/16/22 Previous Rx's Medication Instructions Recorded HYDROcodone/APAP 5-325MG [Chamberlain 1 - 2 tab PO Q4HR PRN #10 tab 11/17/22 5-325] Sulfamethox-Tmp 800-160Mg [Bactrim 1 tab PO Q12HR #14 tab 11/17/22 DS 800-160 mg] Cephalexin [Keflex] 500 mg PO TID 10 Days #30 cap 03/25/23 Allergies Allergy/AdvReac Type Severity Reaction Status Date / Time enalaprilat [From Vasotec] Allergy Per [facility] Verified 03/25/23 21:14 records tramadol AdvReac Hallucinati Verified 03/25/23 21:14 ons Review of Systems ROS Statement: Those systems with pertinent positive or pertinent negative responses have been documented in the HPI. ROS Other: All systems not noted in ROS Statement are negative. Past Medical History Past Medical History: Chest Pain / Angina, COPD, Diabetes Mellitus, Hyperlipidemia, Hypertension, Myocardial Infarction (CT), Pneumonia, Renal Disease, Skin Disorder Additional Past Medical History / Comment(s): Stage 2 kidney failure, gout Last Myocardial Infarction Date:: 1990 History of Any Multi-Drug Resistant Organisms: None Reported Past Surgical History: Heart Catheterization, Joint Replacement Additional Past Surgical History / Comment(s): AAA repair, rt leg aneursym with 2 stents, sarah cataracts, neck surgery, lt hip replacement Past Anesthesia/Blood Transfusion Reactions: Previous Problems w/ Anesthesia, Motion Sickness Additional Past Anesthesia/Blood Transfusion Reaction / Comment(s): previous difficulty with general anesthesia due to COPD and difficulty breathing Past Psychological History: No Psychological Hx Reported Smoking Status: Former smoker Past Alcohol Use History: None Reported Past Drug Use History: None Reported - Past Family History Mother Family Medical History: No Reported History Additional Family Medical History / Comment(s): AGE 42 UNCONTROLLED HIGH BLOOD PRESSURE/ MIGRAINES General Exam Limitations: no limitations General appearance: alert, in no apparent distress Head exam: Present: atraumatic, normocephalic Eye exam: Present: normal appearance, PERRL ENT exam: Present: normal exam Neck exam: Present: normal inspection Respiratory exam: Present: decreased breath sounds. Absent: respiratory distress Cardiovascular Exam: Present: regular rate, normal rhythm GI/Abdominal exam: Present: soft. Absent: distended, tenderness, guarding, rebound, rigid Neurological exam: Present: alert, oriented X3 Psychiatric exam: Present: normal affect, normal mood Skin exam: Present: warm, dry, intact Course Vital Signs 03/25/23 03/25/23 21:09 22:33 Temperature 98.4 F Pulse Rate 103 H 90 Respiratory 18 17 Rate Blood Pressure 111/71 102/70 O2 Sat by Pulse 93 L 91 L Oximetry Medical Decision Making - Medical Decision Making Was pt. sent in by a medical professional or institution (, [facility], FAMILY INDEPENDENCE CASE MANAGER, urgent care, hospital, or senior care...) When possible be specific @ -No Did you speak to anyone other than the patient for history (EMS, parent, family, police, friend...)? What history was obtained from this source @ -No Did you review nursing and triage notes (agree or disagree)? Why? @ -I reviewed and agree with nursing and triage notes Were old charts reviewed (outside hosp., previous admission, EMS record, old EKG, old radiological studies, urgent care reports/EKG's, senior care records)? Report findings @ -No old charts were reviewed Differential Diagnosis (chest pain, altered mental status, abdominal pain women, abdominal pain men, vaginal bleeding, weakness, fever, dyspnea, syncope, headache, dizziness, GI bleed, back pain, seizure, CVA, palpatations, mental health, musculoskeletal)? @ UTI, urinary retention, renal colic EKG interpreted by me (3pts min.). @ -As above X-rays interpreted by me (1pt min.). @ -None done CT interpreted by me (1pt min.). @ -None done U/S interpreted by me (1pt. min.). @ -None done What testing was considered but not performed or refused? (CT, X-rays, U/S, labs)? Why? @ -None What meds were considered but not given or refused? Why? @ -None Did you discuss the management of the patient with other professionals (professionals i.e. [facility] Horne, FAMILY INDEPENDENCE CASE MANAGER, lab, RT, psych nurse, mental health social worker, rotating equipment specialist, teacher, production officer, supportive employment case manager)? Give summary @ -No Was smoking cessation discussed for >3mins.? @ -No Was critical care preformed (if so, how long)? @ -No Were there social determinants of health that impacted care today? How? (Homelessness, low income, unemployed, alcoholism, drug addiction, transportation, low edu. Level, literacy, decrease access to med. care, [facility], rehab)? @ -No Was there de-escalation of care discussed even if they declined (Discuss DNR or withdrawal of care, Hospice)? DNR status @ -No What co-morbidities impacted this encounter? (DM, HTN, Smoking, COPD, CAD, Cancer, CVA, ARF, Chemo, Hep., AIDS, mental health diagnosis, sleep apnea, morbid obesity)? @ -[COPD Was patient admitted / discharged? Hospital course, mention meds given and route, prescriptions, significant lab abnormalities, going to OR and other pertinent info. @ -[10-year-old male with urinary frequency and urgency. No dysuria. No fever. Bladder scan shows 180 mL in the bladder. Straight cath is performed which does reveal 180 mL of urine. Urinalysis sent which is consistent with UTI. Urine culture is pending. I obtained an ECG and CMP. He has a high white count and 19 which is predominantly neutrophils and a HPI of creatinine 1.6. I did initiate IV antibiotics and IV fluids at this time. I did plan to observe this patient overnight for continued IV fluids and antibiotics but the patient declines and would like to try oral antibiotics with strict return parameters. He and his are both informed of return parameters including fever, weakness, vomiting. Undiagnosed new problem with uncertain prognosis? @ -No Drug Therapy requiring intensive monitoring for toxicity (Heparin, Nitro, Insulin, Cardizem)? @ -No Were any procedures done? @ -No Diagnosis/symptom? @ -UTI Acute, or Chronic, or Acute on Chronic? @ -Acute Uncomplicated (without systemic symptoms) or Complicated (systemic symptoms)? @ -[Complicated Side effects of treatment? @ -No Exacerbation, Progression, or Severe Exacerbation? @ -No Poses a threat to life or bodily function? How? (Chest pain, USA, CT, pneumonia, PE, COPD, DKA, ARF, appy, cholecystitis, CVA, Diverticulitis, Homicidal, Suicidal, threat to staff... and all critical care pts) @ -[Moderate risk, sepsis - Lab Data Result diagrams: 03/25/23 22:08 03/25/23 22:08 Lab Results 03/25/23 03/25/23 03/25/23 Range/Units 21:45 22:08 22:08 WBC 19.5 H (3.8-10.6) k/uL RBC 3.88 L (4.30-5.90) m/uL Hgb 12.4 L (13.0-17.5) gm/dL Hct 37.4 L (39.0-53.0) % MCV 96.3 (80.0-100.0) fL MCH 32.0 (25.0-35.0) pg MCHC 33.2 (31.0-37.0) g/dL RDW 14.2 (11.5-15.5) % Plt Count 176 (150-450) k/uL MPV 7.9 Neutrophils % 89 % Lymphocytes % 5 % Monocytes % 5 % Eosinophils % 0 % Basophils % 0 % Neutrophils # 17.3 H (1.3-7.7) k/uL Lymphocytes # 0.9 L (1.0-4.8) k/uL Monocytes # 1.1 H (0-1.0) k/uL Eosinophils # 0.0 (0-0.7) k/uL Basophils # 0.0 (0-0.2) k/uL Sodium 129 L (137-145) mmol/L Potassium 4.4 (3.5-5.1) mmol/L Chloride 95 L (98-107) mmol/L Carbon Dioxide 20 L (22-30) mmol/L Anion Gap 14 mmol/L BUN 48 H (9-20) mg/dL Creatinine 1.60 H (0.66-1.25) mg/dL Est GFR (CKD-EPI)AfAm 47 (>60 ml/min/1.73 sqM) Est GFR (CKD-EPI)NonAf 40 (>60 ml/min/1.73 sqM) Glucose 134 H (74-99) mg/dL Calcium 9.2 (8.4-10.2) mg/dL Magnesium 1.5 L (1.6-2.3) mg/dL Total Bilirubin 1.2 (0.2-1.3) mg/dL AST 22 (17-59) U/L ALT 15 (4-49) U/L Alkaline Phosphatase 92 (38-126) U/L Total Protein 7.0 (6.3-8.2) g/dL Albumin 3.5 (3.5-5.0) g/dL Urine Color Yellow Urine Appearance Turbid (Clear) Urine pH 5.5 (5.0-8.0) Ur Specific Dudley 1.016 (1.001-1.035) Urine Protein 2+ H (Negative) Urine Glucose (UA) Negative (Negative) Urine Ketones Negative (Negative) Urine Blood Moderate H (Negative) Urine Nitrite Negative (Negative) Urine Bilirubin Negative (Negative) Urine Urobilinogen <2.0 (<2.0) mg/dL Ur Leukocyte Esterase Large H (Negative) Urine RBC 23 H (0-5) /hpf Urine WBC >182 H (0-5) /hpf Urine WBC Clumps Many H (None) /hpf Urine Bacteria Many H (None) /hpf Urine Mucus Occasional H (None) /hpf Disposition Clinical Impression: UTI (urinary tract infection) Disposition: HOME SELF-CARE Condition: Fair Instructions (If sedation given, give patient instructions): Urinary Tract Infection in Men (ED) Prescriptions: Cephalexin [Keflex] 500 mg PO TID 10 Days #30 cap Is patient prescribed a controlled substance at d/c from ED?: No Referrals: Puneet Caro MD [Primary Care Provider] - 1-2 days Time of Disposition: 22:58
[2023-03-25 22:18] LABS: Basophils % (A) 0 %; Eosinophils % (A) 0 %; HCT 37.4 % (39.0-53.0); HGB 12.4 gm/dL (13.0-17.5); Lymphocytes # (A) 0.9 k/uL (1.0-4.8); Lymphocytes % (A) 5 %; MCHC 33.2 g/dL (31.0-37.0); MCV 96.3 fL (80.0-100.0); Mean Platelet Volume 7.9; Monocytes # (A) 1.1 k/uL (0-1.0); Monocytes % (A) 5 %; Neutrophils # (A) 17.3 k/uL (1.3-7.7); Neutrophils % (A) 89 %; Platelet Count 176 k/uL (150-450); RBC 3.88 m/uL (4.30-5.90); RDW 14.2 % (11.5-15.5); WBC 19.5 k/uL (3.8-10.6)
[2023-03-25 22:25] LABS: ALT 15 U/L (4-49); AST 22 U/L (17-59); African American GFR (CKD) 47 (>60 ml/min/1.73 sqM); Albumin 3.5 g/dL (3.5-5.0); Alkaline Phosphatase 92 U/L (38-126); Anion Gap 14 mmol/L; Blood Urea Nitrogen 48 mg/dL (9-20); Calcium 9.2 mg/dL (8.4-10.2); Carbon Dioxide 20 mmol/L (22-30); Chloride 95 mmol/L (98-107); Glucose 134 mg/dL (74-99); Magnesium 1.5 mg/dL (1.6-2.3); Non-African American GFR(CKD) 40 (>60 ml/min/1.73 sqM); Potassium 4.4 mmol/L (3.5-5.1); Sodium 129 mmol/L (137-145); Total Bilirubin 1.2 mg/dL (0.2-1.3)
[2023-03-25 22:26] LABS: Appearance,Urine Turbid (Clear); Bacteria,Urine Many /hpf; Bilirubin,Urine Negative (Negative); Blood,Urine Moderate (Negative); Color,Urine Yellow; Glucose,Urine (UA) Negative (Negative); Ketones,Urine Negative (Negative); Leukocyte Esterase,Urine Large (Negative); Mucus,Urine Occasional /hpf; Nitrite,Urine Negative (Negative); PH, Urine 5.5 (5.0-8.0); Protein,Urine 2+ (Negative); RBC,Urine 23 /hpf (0-5); Specific Gravity,Urine 1.016 (1.001-1.035); Urobilinogen,Urine <2.0 mg/dL (<2.0); WBC,Urine >182 /hpf (0-5)
[2023-03-25] MEDS ORDERED: cefTRIAXone IN SWFI 1,000 MG/10 ML SYRINGE IVP STA (22:43)
[2023-03-25] MEDS ORDERED: SODIUM CHLORIDE 0.9% 1,000 ML IV ONE (22:43)
[2023-03-25 22:44] VITALS: RESP 17
[2023-03-25 23:32] VITALS: BP 102/67; PULSE 94
== END 2023-03-25 23:32 | disposition home or self-care (01) ==
LOC: EC 21:00
DX: N39.0 Urinary tract infection, site not specified (principal); B96.20 Unspecified Escherichia coli [E. coli] as the cause of diseases classified elsewhere; E78.5 Hyperlipidemia, unspecified; I10 Essential (primary) hypertension; I25.2 Old myocardial infarction; J44.9 Chronic obstructive pulmonary disease, unspecified; Z87.891 Personal history of nicotine dependence; Z79.51 Long term (current) use of inhaled steroids; Z79.899 Other long term (current) drug therapy; Z79.82 Long term (current) use of aspirin; Z88.5 Allergy status to narcotic agent; Z88.8 Allergy status to other drugs, medicaments and biological substances
CPT/HCPCS: 51798; 36415; 80053; 83735; 85025; 81001; 87086; 87077; 87186; 51702; 99284; 96374; 96361; J0696

== ENCOUNTER → 2023-08-27 | Outpatient (CLI) | payer MEDICARE ==
--- NOTE | 2023-08-31 11:55 | CT ---
EXAMINATION TYPE: CT abdomen pelvis wo con CT DLP: 472.6 mGycm, Automated exposure control for dose reduction was used. DATE OF EXAM: 08/27/2023 3:01 PM COMPARISON: CT abdomen pelvis 04/26/2020 CLINICAL INDICATION:Male, 82 years old with history of N20.0 CALCULUS OF KIDNEY R31.[address]; Patient sent in for Renal stones, patient states he has no pain. TECHNIQUE: Axial CT abdomen pelvis wo con;Sagittal and coronal reformats were created on a separate workstation. Contrast used: mL of , (none if empty) Oral contrast used: without Oral Contrast (none if empty) FINDINGS: LOWER CHEST: Scarring and calcifications in the right lung base are stable. ABDOMEN LIVER: Unremarkable GALLBLADDER AND BILE DUCTS: Unremarkable. PANCREAS: Unremarkable. SPLEEN: Numerous calcified granulomata, otherwise unremarkable ADRENAL GLANDS: Unremarkable. KIDNEYS AND URETERS: No evidence of hydronephrosis. Bilateral nephrolithiasis. The ureters are unrema rkable. PELVIS BLADDER: Unremarkable REPRODUCTIVE: Unremarkable.. Stigmata of penile implant. ABDOMEN & PELVIS STOMACH AND BOWEL: Stomach and duodenum are unremarkable. No evidence of bowel obstruction. PERITONEUM/RETROPERITONEUM: No evidence of pneumoperitoneum or free fluid. VASCULATURE: No evidence of aortic aneurysm. MUSCULOSKELETAL: No acute osseous abnormalities LYMPH NODES: No gross evidence for lymphadenopathy. SOFT TISSUE/ABDOMINAL WALL: Unremarkable IMPRESSION: 1. Evidence of healed granulomatous disease. 2. Bilateral nephrolithiasis
== END | disposition home or self-care (01) ==
LOC: RADCTMAIN 14:37
PROVIDERS: ATTEND Urology
DX: N20.0 Calculus of kidney (principal); R31.1 Benign essential microscopic hematuria
CPT/HCPCS: 74176